=== PATIENT | female | born 1935 | race Caucasian/White ===

== ENCOUNTER → 2020-09-16 14:44 | Outpatient (BNVA) | payer MEDICARE, OTHER, SELFPAY | PROVIDERS: Visit Provider Internal Medicine Cardiovascular Disease | DX: Z76.89 Persons encountering health services in other specified circumstances (principal) ==

== ENCOUNTER → 2020-09-18 10:39 | Outpatient (REF) | payer MEDICARE, OTHER, SELFPAY ==
--- NOTE | 2020-09-18 10:45 | ECG_ITS ---
Hook-up date: 2020-09-16 15:18:00 Duration: 23:29:00 Test Indications: UNSPEC AFIB Medications: [id number] QRS complexes 99 Ventricular ectopics which represent <1 % of total QRS comp. * Supraventricular ectopics which represent % of total QRS comp. * Paced QRS complexs which represent % of total QRS comp. VENTRICULAR ECTOPY 99 Isolated 0 Bigeminal Cycles 0 Couplets 0 Runs 0 Beats in Runs * Beats LONGEST at * BPM at :: -- * Beats FASTEST at * BPM at :: -- SUPRAVENTRICULAR ECTOPY * Isolated * Couplets * Runs * Beats in Runs * Beats LONGEST at * BPM at :: -- * Beats FASTEST at * BPM at :: -- HEART RATES 58 MIN at 05:16:20 2020-09-17 103 AVG 146 MAX at 10:32:44 2020-09-17 LONGEST RR 1.7040 secs at 04:40:34 2020-09-17 S-T LEVELS Channel 1 - 128 mm at 15:18:00 2020-09-16 - 128 mm at 15:18:00 2020-09-16 Channel 2 - 128 mm at 15:18:00 2020-09-16 - 128 mm at 15:18:00 2020-09-16 Channel 3 - 128 mm at 03:43:71 -- - 128 mm at 03:43:71 Basic rhythm Atrial fibrillation Inadequate rate control with average HR of 103 bpm with 63% of time HR > 100 bpm Rare Premature ventricular complexes No diary submitted Referred By: Luis Hunt Overread By: LUIS HUNT MD
== END ==
LOC: HO.CARD 10:39
PROVIDERS: Visit Provider Internal Medicine Cardiovascular Disease
DX: I48.91 Unspecified atrial fibrillation (principal)
CPT/HCPCS: 93226

== ENCOUNTER 2020-11-18 10:12 | Outpatient (REF) | payer MEDICARE, OTHER, SELFPAY ==
[2020-11-18 11:08] LABS: MANUAL DIFF FLAG NO
[2020-11-18 11:31] LABS: Basophils Percent Auto 0.6 % (0-2); Eosinophils Absolute Auto 0.1 X10*3/uL (0.0-0.4); Eosinophils Percent Auto 1.8 % (0-4); Hematocrit 44.2 % (37-47); Hemoglobin 13.6 g/dl (12.0-16.0); Imm Gran Abs Auto 0.03 X10*3/uL (0.00-0.03); Imm Gran Pct Auto 0.5 % (0.0-0.4); Lymphocytes Absolute Auto 1.7 X10*3/uL (1.2-4.9); Lymphocytes Percent Auto 25.5 % (20-40); Mean Corpuscular HGB Conc 30.8 g/dl (31.0-35.0); Mean Corpuscular Hemoglobin 27.2 pg (27.0-33.0); Mean Corpuscular Volume 88.4 fL (80-98); Mean Platelet Volume 10.6 fL (9.4-12.3); Monocytes Absolute Auto 0.5 X10*3/uL (0.1-1.2); Monocytes Percent Auto 6.9 % (2-11); Neutrophils Absolute Auto 4.2 X10*3/uL (2.0-8.3); Neutrophils Percent Auto 64.7 % (45-73); Platelet Count 181 X10*3/uL (160-400); Red Cell Distribution Width 14.1 % (11.0-16.0); White Blood Count 6.5 X10*3/uL (4.8-10.8)
[2020-11-18 12:01] LABS: Anion Gap 12 (12-20); Blood Urea Nitrogen 20 mg/dL (9-16); Calcium 9.2 mg/dL (8.4-10.2); Carbon Dioxide 28 mmol/L (22-29); Chloride 106 mmol/L (96-108); Cholesterol 208 mg/dL; Estimated Glomerular Filt Rate > 60; Glucose Fasting 99 mg/dL (60-99); HDL Cholesterol 49 mg/dL; LDL Cholesterol Calculated 133 mg/dl; Potassium 4.2 mmol/l (3.3-5.1); Sodium 142 mmol/L (135-145); Triglycerides 130 mg/dL
[2020-11-18 12:07] LABS: Free T4 (Free Thyroxine) 1.01 ng/dL (0.71-1.85); Thyroid Stimulating Hormone 0.64 uIU/mL (0.32-4.0); Vitamin D 25-OH Total 6.2 ng/mL (>30)
== END 2020-11-18 10:13 | disposition home or self-care (01) ==
LOC: HO.HMGCLDS 10:12
PROVIDERS: PCP Internal Medicine; Visit Provider Internal Medicine
DX: F41.9 Anxiety disorder, unspecified (principal); E03.9 Hypothyroidism, unspecified; I48.91 Unspecified atrial fibrillation; I10 Essential (primary) hypertension; L60.8 Other nail disorders; Z78.0 Asymptomatic menopausal state; Z79.01 Long term (current) use of anticoagulants
CPT/HCPCS: 36415; 80048; 80061; 82306; 84439; 84443; 85025

== ENCOUNTER 2021-06-04 10:06 | Outpatient (REF) | payer MEDICARE, OTHER, SELFPAY ==
[2021-06-04 11:16] LABS: MANUAL DIFF FLAG NO
[2021-06-04 11:28] LABS: Basophils Percent Auto 0.4 % (0-2); Eosinophils Absolute Auto 0.1 X10*3/uL (0.0-0.4); Eosinophils Percent Auto 1.8 % (0-4); Hematocrit 43.8 % (37-47); Hemoglobin 13.6 g/dl (12.0-16.0); Imm Gran Abs Auto 0.03 X10*3/uL (0.00-0.03); Imm Gran Pct Auto 0.6 % (0.0-0.4); Lymphocytes Absolute Auto 1.4 X10*3/uL (1.2-4.9); Lymphocytes Percent Auto 28.7 % (20-40); Mean Corpuscular HGB Conc 31.1 g/dl (31.0-35.0); Mean Corpuscular Hemoglobin 27.7 pg (27.0-33.0); Mean Corpuscular Volume 89.2 fL (80-98); Mean Platelet Volume 10.8 fL (9.4-12.3); Monocytes Absolute Auto 0.4 X10*3/uL (0.1-1.2); Monocytes Percent Auto 8.6 % (2-11); Neutrophils Percent Auto 59.9 % (45-73); Platelet Count 177 X10*3/uL (160-400); Red Blood Count 4.91 X10*6/uL (4.20-5.50); Red Cell Distribution Width 14.7 % (11.0-16.0)
[2021-06-04 11:49] LABS: Alanine Aminotransferase 7 U/L (0-31); Anion Gap 13 (12-20); Aspartate Amino Transferase 17 U/L (5-31); Blood Urea Nitrogen 13 mg/dL (9-16); Calcium 9.5 mg/dL (8.4-10.2); Carbon Dioxide 25 mmol/L (22-29); Chloride 108 mmol/L (96-108); Cholesterol 165 mg/dL; Estimated Glomerular Filt Rate > 60; Glucose Fasting 107 mg/dL (60-99); HDL Cholesterol 44 mg/dL; LDL Cholesterol Calculated 104 mg/dl; Potassium 4.4 mmol/L (3.3-5.1); Sodium 142 mmol/L (135-145); Triglycerides 88 mg/dL
[2021-06-04 12:11] LABS: Free T4 (Free Thyroxine) 1.03 ng/dL (0.71-1.85); Vitamin D 25-OH Total 16.2 ng/mL (>30)
== END 2021-06-04 10:07 | disposition home or self-care (01) ==
LOC: HO.HMGCLDS 10:06
PROVIDERS: PCP Internal Medicine; Visit Provider Internal Medicine
DX: E03.9 Hypothyroidism, unspecified (principal); F41.9 Anxiety disorder, unspecified; I48.91 Unspecified atrial fibrillation; I10 Essential (primary) hypertension; Z78.0 Asymptomatic menopausal state; Z79.01 Long term (current) use of anticoagulants
CPT/HCPCS: 36415; 80048; 80061; 82306; 84439; 84443; 84450; 84460; 85025

== ENCOUNTER → 2021-07-07 12:16 | Outpatient (BNVA) | payer MEDICARE, OTHER, SELFPAY | PROVIDERS: PCP Internal Medicine; Referring Provider Internal Medicine; Visit Provider Internal Medicine Cardiovascular Disease | DX: I48.91 Unspecified atrial fibrillation (principal); I44.7 Left bundle-branch block, unspecified; I10 Essential (primary) hypertension | CPT/HCPCS: 93005; 99212 ==

== ENCOUNTER 2021-08-04 15:30 | Outpatient (REF) | payer MEDICARE, OTHER, SELFPAY ==
[2021-08-04 17:54] LABS: Hematocrit 43.3 % (37-47); Hemoglobin 13.9 g/dl (12.0-16.0); Mean Corpuscular HGB Conc 32.1 g/dl (31.0-35.0); Mean Corpuscular Hemoglobin 29.3 pg (27.0-33.0); Mean Corpuscular Volume 91.4 fL (80-98); Mean Platelet Volume 10.9 fL (9.4-12.3); Platelet Count 164 X10*3/uL (160-400); Red Blood Count 4.74 X10*6/uL (4.20-5.50); Red Cell Distribution Width 14.9 % (11.0-16.0); White Blood Count 13.2 X10*3/uL (4.8-10.8)
[2021-08-04 18:03] LABS: Alanine Aminotransferase 32 U/L (0-31); Albumin Level 4.2 g/dL (3.5-5.0); Alkaline Phosphatase 93 U/L (39-117); Anion Gap 14 (12-20); Aspartate Amino Transferase 16 U/L (5-31); Bilirubin Direct 0.4 mg/dL (0.0-0.5); Bilirubin Total 1.2 mg/dL (0.0-1.0); Blood Urea Nitrogen 21 mg/dL (9-16); Calcium 9.4 mg/dL (8.4-10.2); Carbon Dioxide 26 mmol/L (22-29); Chloride 106 mmol/L (96-108); Estimated Glomerular Filt Rate > 60; Glucose Random 99 mg/dL (60-115); Sodium 142 mmol/L (135-145); Total Protein 6.5 g/dL (6.5-8.0)
== END 2021-08-04 15:31 | disposition home or self-care (01) ==
LOC: HO.HMGCLDS 15:30
PROVIDERS: PCP Internal Medicine; Visit Provider Internal Medicine
DX: R53.83 Other fatigue (principal)
CPT/HCPCS: 36415; 80048; 80076; 85027

== ENCOUNTER 2021-08-07 10:48 | Inpatient (IN) | payer MEDICARE, OTHER, SELFPAY ==
[2021-08-07] VITALS (12 sets, daily range): BP systolic 108–139; BP diastolic 47–77; PULSE 95–135; RESP 18–28; TEMP 36.9–38.5; O2SAT 88–95; BMI 24.6
--- NOTE | ~2021-08-07 | CT_ITS ---
EXAMINATION: CT ABDOMEN AND PELVIS WITH CONTRAST CLINICAL INFORMATION: Diarrhea, bloody stool COMPARISON: CT abdomen pelvis 03/09/2018 TECHNIQUE: Multidetector volumetric images were obtained from the superior aspect of the liver through the pubic symphysis following administration 85 mL of Omnipaque 350 intravenous contrast. Sagittal and coronal reformatted images were obtained on the technologist's workstation. Oral contrast: No This CT examination was performed using dose optimization techniques as appropriate, variously including the following: *Automated exposure control *Adjustment of mA and/or kV according to patient size (this includes techniques or standardized protocols for targeted exams where dose is matched to indication/reason for exam; i.e. extremities or head) *Use of iterative reconstruction technique DLP: 452 mGy-cm FINDINGS: LUNG BASES: Similar appearance of atelectasis or fibrosis at the lung bases. Mild cardiomegaly. No pericardial effusion. LIVER, GALLBLADDER, AND BILIARY TREE: Unchanged small hepatic hypodensities, similar to 2018 suggesting cysts or another benign etiology; no imaging follow-up recommended. New periportal edema. The hepatic and portal veins enhance normally. Calcified gallstones are present. PANCREAS: Unremarkable. SPLEEN: Unremarkable. ADRENAL GLANDS: Diffuse thickening of the left adrenal gland may reflect adrenal hyperplasia. No adrenal mass. KIDNEYS AND URETERS: Symmetric bilateral renal enhancement. No hydronephrosis or calculi. Unchanged bilateral simple cysts requiring no imaging follow-up. BLADDER: Unremarkable. GASTROINTESTINAL TRACT: Small hiatal hernia. Stomach collapsed. Small bowel nondilated. There is severe wall thickening and stratified mucosal hyperenhancement of the sigmoid colon and rectum. There are areas of high density intraluminal contents within the sigmoid colon and rectum, nonspecific as no precontrast images were obtained to evaluate if this represents contrast extravasation the setting of GI bleeding. There is perirectal fluid and fat stranding with small volume presacral fluid. There is prominence of the vasa recta adjacent the sigmoid colon and upper rectum. Normal wall thickness of the right colon, transverse colon, and left colon. ABDOMINAL WALL: Small fat-containing umbilical hernia. LYMPH NODES: Numerous subcentimeter retroperitoneal lymph nodes. No lymphadenopathy. VASCULAR: Severe circumferential calcified atherosclerotic changes of the normal caliber infrarenal abdominal aorta. PELVIC VISCERA: Diminutive postmenopausal uterus. 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 Normal appearance of both ovaries. OSSEOUS STRUCTURES: There is degenerative disc disease at L5-S1 with vacuum disc phenomenon. Lower lumbar facet arthropathy. Multilevel degenerative changes of the lumbar spine. CT/CT abdomen pelvis w con IMPRESSION: Severe rectosigmoid wall thickening with surrounding fluid and fat stranding consistent with nonspecific acute proctocolitis. The extension to involve the rectum would be unusual for ischemic colitis. An infectious or inflammatory etiology is favored.
--- NOTE | ~2021-08-07 | XR_ITS ---
EXAMINATION: XR CHEST CLINICAL INFORMATION: Shortness of breath COMPARISON: 10/08/2018 TECHNIQUE: Frontal view of the chest was obtained. FINDINGS: There is mild upper zone redistribution. Heart size mildly enlarged. Is retrocardiac opacity with some patchy density seen in obscuration of the left hemidiaphragm. A small left effusion is probably present, although no effusion was seen on the CT scan performed earlier today. No consolidations are seen in the right lung. No right pleural effusion. XR/XR chest 1V IMPRESSION: Question of mild pulmonary vascular congestion. Question of left lower lobe patchy infiltrate.
--- NOTE | 2021-08-07 11:11 | ED_ITS ---
HPI - Abdominal Pain General Chief Complaint: Abdominal Pain Stated Complaint: abd pain Time Seen by Provider: 08/07/21 11:04 Source: patient and EMS Mode of arrival: EMS Limitations: no limitations History of Present Illness MD elicited complaint: abdominal pain Pertinent past history: other (hx of colitis in the past) Onset (ago): day(s) (2) Pain Consistency: constant Location: diffuse Severity: moderate Quality: cramping Radiation: none Migration to: no migration Exacerbating factors: nothing Relieving factors: nothing Context: history of similar episodes Associated symptoms: nausea, diarrhea, fever, chills and hematochezia Related Data Home Medications Medication Instructions Recorded Confirmed cholecalciferol (vitamin D3) 1,250 1,250 mcg PO SA 08/07/21 08/07/21 mcg (50,000 unit) capsule Previous Rx's Medication Instructions Recorded diltiazem HCl 240 mg 240 mg PO BID #180 cap 03/03/21 capsule,extended release 24 hr metoprolol succinate 50 mg 50 mg PO BID #180 tab 03/20/21 tablet,extended release 24 hr sertraline 50 mg tablet 50 mg PO DAILY #90 tab 04/10/21 levothyroxine 25 mcg tablet 25 mcg PO DAILY #90 tab 07/27/21 (Levo-T) zolpidem 10 mg tablet (Ambien) 10 mg PO BEDTIME 10 Days #10 tab 08/05/21 apixaban 5 mg tablet (Eliquis) 5 mg PO BID 90 Days #180 tab 08/07/21 Allergies Allergy/AdvReac Type Severity Reaction Status Date / Time amoxicillin [From AUGMENTIN] Allergy Intermediate RASH Verified 08/07/21 11:06 gabapentin [GABAPENTIN] Allergy Unknown UNKNOWN Verified 08/07/21 11:06 Review of Systems Review of Systems Constitutional : No Weight loss, No Fever, pos Chills ENT/Mouth : No sore throat, No Rhinorrhea Eyes: No Swelling, No Redness Cardiovascular : No Chest Pain, No SOB, NoEdema Respiratory : No Cough, No Sputum, No Wheezing Gastrointestinal : Positive Nausea, no Vomiting, positive Diarrhea, positive abdominal Pain, pos Hematochezia, No Melena Genitourinary : No Dysuria, No Urinary Frequency, No Hematuria, No Urgency Musculoskeletal : No joint pain, No Myalgias, No Joint Swelling Skin : No Skin Lesions, No rash Neuro : pos Weakness, No Numbness, No Dizziness, No Headache Psych : No Anxiety/Panic, No Depression Heme/Lymph: No Bruising, No Lymphadenopathy Endocrine : No Polyuria, No Polydipsia All other systems reviewed and are negative. Physical Exam Vital Signs: Vital Signs: Last Vital Signs Temp 98.4 F 08/07/21 15:22 Pulse 135 H 08/07/21 15:22 Resp 18 08/07/21 15:22 BP 108/67 08/07/21 15:22 Pulse Ox 94 08/07/21 15:22 Body Mass Index 24.6 Appearance: Alert. Oriented X3. in pain mild acute distress. Eyes: Pupils equal, round and reactive to light. ENT: Pharynx normal. Neck: Normal inspection. Neck supple. CVS: tachycardic irregular heart rate and rhythm. Pulses normal. Respiratory: No respiratory distress. Breath sounds normal. Abdomen: Soft and distended with moderate diffuse ttp Rectal: mucousy brown stool Skin: Skin warm and dry. pale skin color. Normal skin turgor. Extremities: No lower extremity edema. No calf ttp Neuro: Oriented X 3. No motor deficit. No sensory deficit. Course Course Course Narrative: HR still elevated with tylenol/fluids, IV dilt ordered did not take her AM meds will admit for colitis, rapid afib HR still tono will start on dilt gtt MDM - Abdominal Pain MDM Narrative Medical decision making narrative: 86 yo female with hx of colitis, HTN, afib on eliquis comes in with fevers, diarrhea, possible colitis vs cdiff will obtain labs, cultures, empiric antbiotics, CT scan, stool studies IVF will need admission. Lab Data Result diagrams: 08/07/21 11:21 08/07/21 11:21 Labs: Lab Results 08/07/21 08/07/21 08/07/21 Range/Units 11:21 11:21 11:21 WBC 17.1 H (4.8-10.8) X10*3/uL RBC 4.21 (4.20-5.50) X10*6/uL Hgb 12.5 (12.0-16.0) g/dl Hct 38.6 (37-47) % MCV 91.7 (80-98) fL MCH 29.7 (27.0-33.0) pg MCHC 32.4 (31.0-35.0) g/dl RDW 15.1 (11.0-16.0) % Plt Count 117 L D (160-400) X10*3/uL MPV 10.2 (9.4-12.3) fL Immature Gran % (Auto) 0.8 H (0.0-0.4) % Neut % (Auto) 89.5 H (45-73) % Lymph % (Auto) 4.0 L (20-40) % [place] % (Auto) 5.5 (2-11) % Eos % (Auto) 0.1 (0-4) % Baso % (Auto) 0.1 (0-2) % Lymph # (Auto) 0.7 L (1.2-4.9) X10*3/uL [place] # (Auto) 0.9 (0.1-1.2) X10*3/uL Eos # (Auto) 0.0 (0.0-0.4) X10*3/uL Baso # (Auto) 0.0 (0.0-0.2) X10*3/uL Abs Immat Gran (auto) 0.14 H (0.00-0.03) X10*3/uL Absolute Neuts (auto) 15.3 H (2.0-8.3) X10*3/uL Absolute Nucleated RBC 0.000 (0.0-0.012) X10*3/uL Nucleated RBC % (auto) 0.0 (0.0-0.2) /100WBC PT 21.2 H (9.9-13.0) SEC INR 1.8 H (0.9-1.1) APTT 35.6 (24.1-38.0) SEC Sodium 139 (135-145) mmol/L Potassium 4.0 (3.3-5.1) mmol/L Chloride 104 (96-108) mmol/L Carbon Dioxide 25 (22-29) mmol/L Anion Gap 14 (12-20) BUN 18 H (9-16) mg/dL Creatinine 0.79 (0.5-1.4) mg/dL Estim Creat Clear Calc 46.0 Estimated GFR > 60 Random Glucose 93 (60-115) mg/dL Lactic Acid (0.5-2.0) mmol/L Calcium 8.8 D (8.4-10.2) mg/dL Magnesium (1.6-2.6) mg/dL Total Bilirubin (0.0-1.0) mg/dL Direct Bilirubin (0.0-0.5) mg/dL AST (5-31) U/L ALT (0-31) U/L Alkaline Phosphatase (39-117) U/L Total Protein (6.5-8.0) g/dL Albumin (3.5-5.0) g/dL Lipase (8-78) U/L Stool Occult Blood (NEGATIVE) C. difficile Tox B Gene (Negative) COVID-19 (JOSE) (Negative) COVID-19 Clin Com Blood Type Antibody Screen 08/07/21 08/07/21 08/07/21 Range/Units 11:21 11:21 11:21 WBC (4.8-10.8) X10*3/uL RBC (4.20-5.50) X10*6/uL Hgb (12.0-16.0) g/dl Hct (37-47) % MCV (80-98) fL MCH (27.0-33.0) pg MCHC (31.0-35.0) g/dl RDW (11.0-16.0) % Plt Count (160-400) X10*3/uL MPV (9.4-12.3) fL Immature Gran % (Auto) (0.0-0.4) % Neut % (Auto) (45-73) % Lymph % (Auto) (20-40) % [place] % (Auto) (2-11) % Eos % (Auto) (0-4) % Baso % (Auto) (0-2) % Lymph # (Auto) (1.2-4.9) X10*3/uL [place] # (Auto) (0.1-1.2) X10*3/uL Eos # (Auto) (0.0-0.4) X10*3/uL Baso # (Auto) (0.0-0.2) X10*3/uL Abs Immat Gran (auto) (0.00-0.03) X10*3/uL Absolute Neuts (auto) (2.0-8.3) X10*3/uL Absolute Nucleated RBC (0.0-0.012) X10*3/uL Nucleated RBC % (auto) (0.0-0.2) /100WBC PT (9.9-13.0) SEC INR (0.9-1.1) APTT (24.1-38.0) SEC Sodium (135-145) mmol/L Potassium (3.3-5.1) mmol/L Chloride (96-108) mmol/L Carbon Dioxide (22-29) mmol/L Anion Gap (12-20) BUN (9-16) mg/dL Creatinine (0.5-1.4) mg/dL Estim Creat Clear Calc Estimated GFR Random Glucose (60-115) mg/dL Lactic Acid 1.0 (0.5-2.0) mmol/L Calcium (8.4-10.2) mg/dL Magnesium 1.9 (1.6-2.6) mg/dL Total Bilirubin 2.7 H (0.0-1.0) mg/dL Direct Bilirubin 1.1 H (0.0-0.5) mg/dL AST 14 (5-31) U/L ALT 19 (0-31) U/L Alkaline Phosphatase 93 (39-117) U/L Total Protein 5.9 L (6.5-8.0) g/dL Albumin 3.9 (3.5-5.0) g/dL Lipase 9 (8-78) U/L Stool Occult Blood (NEGATIVE) C. difficile Tox B Gene (Negative) COVID-19 (JOSE) (Negative) COVID-19 Clin Com Blood Type B Positive Antibody Screen NEGATIVE 08/07/21 08/07/21 08/07/21 Range/Units 11:30 11:53 11:57 WBC (4.8-10.8) X10*3/uL RBC (4.20-5.50) X10*6/uL Hgb (12.0-16.0) g/dl Hct (37-47) % MCV (80-98) fL MCH (27.0-33.0) pg MCHC (31.0-35.0) g/dl RDW (11.0-16.0) % Plt Count (160-400) X10*3/uL MPV (9.4-12.3) fL Immature Gran % (Auto) (0.0-0.4) % Neut % (Auto) (45-73) % Lymph % (Auto) (20-40) % [place] % (Auto) (2-11) % Eos % (Auto) (0-4) % Baso % (Auto) (0-2) % Lymph # (Auto) (1.2-4.9) X10*3/uL [place] # (Auto) (0.1-1.2) X10*3/uL Eos # (Auto) (0.0-0.4) X10*3/uL Baso # (Auto) (0.0-0.2) X10*3/uL Abs Immat Gran (auto) (0.00-0.03) X10*3/uL Absolute Neuts (auto) (2.0-8.3) X10*3/uL Absolute Nucleated RBC (0.0-0.012) X10*3/uL Nucleated RBC % (auto) (0.0-0.2) /100WBC PT (9.9-13.0) SEC INR (0.9-1.1) APTT (24.1-38.0) SEC Sodium (135-145) mmol/L Potassium (3.3-5.1) mmol/L Chloride (96-108) mmol/L Carbon Dioxide (22-29) mmol/L Anion Gap (12-20) BUN (9-16) mg/dL Creatinine (0.5-1.4) mg/dL Estim Creat Clear Calc Estimated GFR Random Glucose (60-115) mg/dL Lactic Acid (0.5-2.0) mmol/L Calcium (8.4-10.2) mg/dL Magnesium (1.6-2.6) mg/dL Total Bilirubin (0.0-1.0) mg/dL Direct Bilirubin (0.0-0.5) mg/dL AST (5-31) U/L ALT (0-31) U/L Alkaline Phosphatase (39-117) U/L Total Protein (6.5-8.0) g/dL Albumin (3.5-5.0) g/dL Lipase (8-78) U/L Stool Occult Blood NEGATIVE (NEGATIVE) C. difficile Tox B Gene NEGATIVE (Negative) COVID-19 (JOSE) Negative (Negative) COVID-19 Clin Com See Note Blood Type Antibody Screen ECG Data Attestation: I personally reviewed and interpreted this ECG as follows: ECG interpretation date: 08/07/21 ECG interpretation time: 13:16 Interpretation: Rate: 120 Rhythm: afib with RVR [place]: left widened QRS complex. ST T wave : nonspecific, no BOZENA qTC: normal prior studies: no acute ischemia afib with RVR The study has been interpreted contemporaneously by me. Critical Care Time Critical Care Time Critical Care Time: Yes Total Critical Care Time: 35 Attestation: IV dilt, IVF, IV morphine for pain I attest to this time spent taking care of the patient Discharge Plan Discharge Clinical Impression: Colitis Atrial fibrillation Qualifiers: Atrial fibrillation type: longstanding persistent Qualified Code(s): I48.11 - Longstanding persistent atrial fibrillation Leukocytosis Qualifiers: Leukocytosis type: unspecified Qualified Code(s): D72.829 - Elevated white b lood cell count, unspecified Diarrhea Qualifiers: Diarrhea type: unspecified type Qualified Code(s): R19.7 - Diarrhea, unspecified Fever Qualifiers: Fever type: unspecified Qualified Code(s): R50.9 - Fever, unspecified Patient Disposition: Admitted As Inpatient [facility] Past Medical History Attestation statement: The following information was validated with the patient. Medical History Acquired deformity of toenail Acquired hypothyroidism Anxiety disorder Atrial fibrillation Chronic anticoagulation Degenerative disc disease, lumbar HTN (hypertension) Insomnia Left bundle branch block Legionnaires' disease Menopause Skin lesion of neck Surgical History Previous back surgery Family History Family History Brother Leukemia Social History Social History Housing: Assisted Living Facility Alcohol intake: current Alcohol intake frequency: a few times a week Patient Tobacco Use Status: Former Tobacco user Tobacco use type: Cigarette Cigarettes Per Day: 10 e-Cigarette/Vaping Use: Never Used Second Hand Smoke Exposure: No Advance Directives: No service: No Current occupational status: retired
[2021-08-07] MEDS: 0.9 % Sodium Chloride 1,000 ML 999 ML IVCONT ×2 (11:25→12:31)
[2021-08-07 11:28] LABS: MANUAL DIFF FLAG NO
[2021-08-07 11:33] LABS: Basophils Percent Auto 0.1 % (0-2); Eosinophils Percent Auto 0.1 % (0-4); Hematocrit 38.6 % (37-47); Hemoglobin 12.5 g/dl (12.0-16.0); Imm Gran Abs Auto 0.14 X10*3/uL (0.00-0.03); Imm Gran Pct Auto 0.8 % (0.0-0.4); Lymphocytes Absolute Auto 0.7 X10*3/uL (1.2-4.9); Mean Corpuscular HGB Conc 32.4 g/dl (31.0-35.0); Mean Corpuscular Hemoglobin 29.7 pg (27.0-33.0); Mean Corpuscular Volume 91.7 fL (80-98); Mean Platelet Volume 10.2 fL (9.4-12.3); Monocytes Absolute Auto 0.9 X10*3/uL (0.1-1.2); Monocytes Percent Auto 5.5 % (2-11); Neutrophils Absolute Auto 15.3 X10*3/uL (2.0-8.3); Neutrophils Percent Auto 89.5 % (45-73); Platelet Count 117 X10*3/uL (160-400); Red Blood Count 4.21 X10*6/uL (4.20-5.50); Red Cell Distribution Width 15.1 % (11.0-16.0); White Blood Count 17.1 X10*3/uL (4.8-10.8)
[2021-08-07] MEDS: ondansetron HCL 4 MG/2 ML VIAL IVPUSH (11:37)
[2021-08-07] MEDS: levoFLOXacin/D5W 500 MG/100 ML PIGGYBACK 100 MG IV (11:38)
[2021-08-07] MEDS: Morphine Sulfate 4 MG/ML CARTRIDGE IVPUSH (11:38)
[2021-08-07] MEDS: Acetaminophen 325 MG TABLET 650 MG PO (11:38)
[2021-08-07 11:41] LABS: INTERNATIONAL NORM RATIO 1.8 (0.9-1.1); Prothrombin Time 21.2 SEC (9.9-13.0)
[2021-08-07 11:44] LABS: Partial Thromboplastin Time 35.6 SEC (24.1-38.0)
--- NOTE | 2021-08-07 11:47 | PHA.MEDREC ---
Pharmacy Consult ? Medication Reconciliation Pharmacy has completed the medication reconciliation. There are no remarkable issue for provider's attention. Faustina Khan, TracyD
[2021-08-07 11:48] LABS: Anion Gap 14 (12-20); Blood Urea Nitrogen 18 mg/dL (9-16); Calcium 8.8 mg/dL (8.4-10.2); Carbon Dioxide 25 mmol/L (22-29); Chloride 104 mmol/L (96-108); Estimated Glomerular Filt Rate > 60; Glucose Random 93 mg/dL (60-115); Sodium 139 mmol/L (135-145)
[2021-08-07 11:51] LABS: Alanine Aminotransferase 19 U/L (0-31); Albumin Level 3.9 g/dL (3.5-5.0); Alkaline Phosphatase 93 U/L (39-117); Aspartate Amino Transferase 14 U/L (5-31); Bilirubin Direct 1.1 mg/dL (0.0-0.5); Bilirubin Total 2.7 mg/dL (0.0-1.0); Lipase 9 U/L (8-78); Magnesium 1.9 mg/dL (1.6-2.6); Total Protein 5.9 g/dL (6.5-8.0)
[2021-08-07 12:18] LABS: COVID-19 Test Negative (Negative)
[2021-08-07] MEDS: iohexoL 350 MG/ML 100 ML INFUS..BTL 85 ML IV (12:40)
[2021-08-07] MEDS: iohexoL 350 MG/ML 100 ML INFUS..BTL IV (13:01)
[2021-08-07] MEDS: metroNIDAZOLE/NS 500 MG/100 ML PIGGYBACK 100 MG IV ×2 (13:03→21:17)
--- NOTE | 2021-08-07 13:08 | ECG_ITS ---
Test Reason : TACHYCARDIA Blood Pressure : / mmHG Vent. Rate : 120 BPM Atrial Rate : 133 BPM P-R Int : 000 ms QRS Dur : 106 ms QT Int : 330 ms P-R-T Axes : 000 -59 140 degrees QTc Int : 466 ms Atrial fibrillation with rapid ventricular response Left axis deviation ST & T wave abnormality, consider lateral ischemia Abnormal ECG When compared with ECG of 08-OCT-2018 12:49, Atrial fibrillation has replaced Sinus rhythm Vent. rate has increased BY 60 BPM Inverted T waves have replaced nonspecific T wave abnormality in Lateral leads Referred By: Ela Aquino Electronically Signed By:ANN-MARIE ALANIZ
[2021-08-07] MEDS: dilTIAZem HCL 50 MG/10 ML VIAL IVPUSH (13:13)
[2021-08-07 13:52] LABS: OBS Int Ctl Valid YES; OBS1 NEGATIVE (NEGATIVE)
[2021-08-07 14:00] LABS: CDiff Gene PCR NEGATIVE (Negative)
[2021-08-07] MEDS: dilTIAZem HCL 125 MG in 0.9 % Sodium Chloride 100 ML 10 MG IVCONT ×2 (14:13→23:04)
--- NOTE | 2021-08-07 15:22 | PM.IMHP ---
History of Present Illness Date of Service: 08/07/21 Chief Complaint: Abdominal pain, bloody diarrhea, AFib 86-year-old female with past medical history of chronic AFib, hypertension, anxiety, hypothyroidism, lumbar radiculopathy: Patient came to the hospital because chief complaint of abdominal pain, bloody diarrhea-patient says that she was on steroids for because of her lumbar radiculopathy couple of weeks ago and since then she started having diarrhea and subsequently steroid was stopped and subsequently patient had started abdominal pain3-4 days, in addition patient also found to be having AFib with RVR. She was also saying she feels generalized weak. Could not eat well from last 3-4 days. Abdominal pain-sharp, on and off, specially in the left lower abdominal area, does not radiate, food also aggravate the pain. She denies currently any nausea or vomiting Denies any new complaint of chest pain or shortness of breath or fever or chills or nausea or vomiting Denies any cough Denies any weakness or numbness. Lab imaging and EKG reviewed and interpreted by myself: Patient has leukocytosis, tachycardia, lactic acid normal. EKG shows AFib with RVR CT abdominal reviewed personallyshowed evidence of colitis In the ED patient received antibiotic including IV levofloxacin and metronidazole and started on Cardizem drip due to AFib with RVR. And subsequently admission was called for above. Review of Systems Review of Systems: All systems reviewed negative except what is in HPI Yes all other systems are reviewed and are negative [facility] Medical History Acquired deformity of toenail Acquired hypothyroidism Anxiety disorder Atrial fibrillation Chronic anticoagulation Degenerative disc disease, lumbar HTN (hypertension) Insomnia Left bundle branch block Legionnaires' disease Menopause Skin lesion of neck Family History Brother Leukemia Surgical History Previous back surgery Social History Housing: Assisted Living Facility Alcohol intake: current Alcohol intake frequency: a few times a week Patient Tobacco Use Status: Former Tobacco user Tobacco use type: Cigarette Cigarettes Per Day: 10 e-Cigarette/Vaping Use: Never Used Second Hand Smoke Exposure: No Advance Directives: No service: No Current occupational status: retired Meds Allergies Allergy/AdvReac Type Severity Reaction Status Date / Time amoxicillin [From AUGMENTIN] Allergy Intermediate RASH Verified 08/07/21 11:06 gabapentin [GABAPENTIN] Allergy Unknown UNKNOWN Verified 08/07/21 11:06 Active Medications: Current Medications Generic Name Dose Route Start Last Admin Trade Name Freq PRN Reason Stop Dose Admin Apixaban 5 mg 08/07/21 21:00 Apixaban 5 Mg Tablet PO BID [facility] Diltiazem HCl 125 mg/ Sodium 125 mls @ 0 mls/hr 08/07/21 14:00 08/07/21 14:13 Chloride IVCONT 10 mg/hr .Q0M SHARLENE 10 mls/hr Administration Protocol Per Protocol Levofloxacin 500 mg in 100 mls @ 100 mls/hr 08/08/21 11:00 Levaquin IV Q24H SHARLENE Metronidazole 500 mg in 100 mls @ 100 mls/hr 08/07/21 21:00 Flagyl IV Q8H [facility] Lactated Ringer's 500 mls @ 80 mls/hr 08/07/21 15:15 Lr IV 08/07/21 21:29 .Q6H15M [facility] Levothyroxine Sodium 25 mcg 08/08/21 09:00 Levothyroxine Sodium 25 Mcg Tablet PO DAILY [facility] Metoprolol Succinate 50 mg 08/07/21 21:00 Metoprolol Succinate Er 50 Mg Tab.Er.24h PO BID [facility] Protocol Non-Formulary Medication 1,250 mcg 08/08/21 15:09 Cholecalciferol (Vitamin D3) PO [facility] Pharmacy Consult 1 each 08/07/21 11:04 Consult Rx Perform Med Rec MISCELLANE ONCE PRN Consult order Sertraline HCl 50 mg 08/08/21 09:00 Sertraline Hcl 50 Mg Tablet PO DAILY [facility] Sodium Chloride 3 ml 08/07/21 16:00 0.9 % Sodium Chloride Flush 3 Ml Syringe IVFLUSH QSHIFT [facility] Zolpidem Tartrate 10 mg 08/07/21 21:00 Zolpidem Tartrate 5 Mg Tablet PO BEDTIME [facility] Home Medications Medication Instructions Recorded Confirmed Last Taken Type cholecalciferol (vitamin D3) 1,250 1,250 mcg PO SA 08/07/21 08/07/21 08/06/21 History mcg (50,000 unit) capsule Physical Exam Vital Signs and Narrative: Vital Signs: Last Vital Signs Temp 99 F 08/07/21 12:46 Pulse 125 H 08/07/21 14:13 Resp 22 H 08/07/21 12:46 BP 124/68 08/07/21 14:13 Pulse Ox 95 08/07/21 12:46 Body Mass Index 24.6 Physical exam: Constitutional: Not in acute distress, has some pain in the left lower belly. HEENT: Eyes: Anicteric , no discharge. Cvs: Irregular rhythm, [id number] . res: clear to auscultation ,no rhonchii or wheezing abd: no rebound or guarding ,nt, bs present. ext pulses present , no cyanosis neuro: axo3 , nonfocal. skin: no erythema or discharge Results Labs CBC and Chem 7: 08/07/21 11:21 08/07/21 11:21 Labs: Laboratory Results - last 24 hr 08/07/21 08/07/21 08/07/21 11:21 11:21 11:21 MCV 91.7 MCH 29.7 MCHC 32.4 RDW 15.1 Plt Count 117 L D MPV 10.2 Immature Gran % (Auto) 0.8 H Neut % (Auto) 89.5 H Lymph % (Auto) 4.0 L [place] % (Auto) 5.5 Eos % (Auto) 0.1 Baso % (Auto) 0.1 Lymph # (Auto) 0.7 L [place] # (Auto) 0.9 Eos # (Auto) 0.0 Baso # (Auto) 0.0 Abs Immat Gran (auto) 0.14 H Absolute Neuts (auto) 15.3 H Absolute Nucleated RBC 0.000 Nucleated RBC % (auto) 0.0 PT 21.2 H INR 1.8 H APTT 35.6 Anion Gap 14 Estim Creat Clear Calc 46.0 Estimated GFR > 60 Random Glucose 93 Lactic Acid Calcium 8.8 D Magnesium Total Bilirubin Direct Bilirubin AST ALT Alkaline Phosphatase Total Protein Albumin Lipase Stool Occult Blood C. difficile Tox B Gene COVID-19 (JOSE) COVID-19 Clin Com Blood Type Antibody Screen 08/07/21 08/07/21 08/07/21 11:21 11:21 11:21 MCV MCH MCHC RDW Plt Count MPV Immature Gran % (Auto) Neut % (Auto) Lymph % (Auto) [place] % (Auto) Eos % (Auto) Baso % (Auto) Lymph # (Auto) [place] # (Auto) Eos # (Auto) Baso # (Auto) Abs Immat Gran (auto) Absolute Neuts (auto) Absolute Nucleated RBC Nucleated RBC % (auto) PT INR APTT Anion Gap Estim Creat Clear Calc Estimated GFR Random Glucose Lactic Acid 1.0 Calcium Magnesium 1.9 Total Bilirubin 2.7 H Direct Bilirubin 1.1 H AST 14 ALT 19 Alkaline Phosphatase 93 Total Protein 5.9 L Albumin 3.9 Lipase 9 Stool Occult Blood C. difficile Tox B Gene COVID-19 (JOSE) COVID-19 Clin Com Blood Type B Positive Antibody Screen NEGATIVE 08/07/21 08/07/21 08/07/21 11:30 11:53 11:57 MCV MCH MCHC RDW Plt Count MPV Immature Gran % (Auto) Neut % (Auto) Lymph % (Auto) [place] % (Auto) Eos % (Auto) Baso % (Auto) Lymph # (Auto) [place] # (Auto) Eos # (Auto) Baso # (Auto) Abs Immat Gran (auto) Absolute Neuts (auto) Absolute Nucleated RBC Nucleated RBC % (auto) PT INR APTT Anion Gap Estim Creat Clear Calc Estimated GFR Random Glucose Lactic Acid Calcium Magnesium Total Bilirubin Direct Bilirubin AST ALT Alkaline Phosphatase Total Protein Albumin Lipase Stool Occult Blood NEGATIVE C. difficile Tox B Gene NEGATIVE COVID-19 (JOSE) Negative COVID-19 Clin Com See Note Blood Type Antibody Screen Imaging Radiologist's Impressions: Impressions Abdomen/Pelvis CT 08/07/21 11:04 IMPRESSION: Severe rectosigmoid wall thickening with surrounding fluid and fat stranding consistent with nonspecific acute proctocolitis. The extension to involve the rectum would be unusual for ischemic colitis. An infectious or inflammatory etiology is favored. Assessment and Plan (1) Leukocytosis: Qualifiers: Leukocytosis type: unspecified Qualified Code(s): D72.829 - Elevated white blood cell count, unspecified Status: Acute (2) Colitis: Status: Acute (3) Lumbar radiculopathy: Status: Acute (4) Atrial fibrillation with RVR: Status: Acute 1. Sepsis/colitis: Lactic acid normal blood cultures sent. Sepsis physical exam completed. Monitor H&H sees has bloody diarrhea due to probably colitis Continue IV fluid, clear liquid diet, Levaquin, Flagyl, morphine for pain. stool studies 2. AFib with RVR: Continue Cardizem drip Cardio evaluation continue Eliquis now due to bloody diarrhea for now,stool for occult blood -negative will check h/h in evening 3. Hypothyroidism: Continue some thyroid supplement. 4. Lumbar radiculopathy: at least 3-4 week durtion, Patient could could not tolerate steroids-mri done outpatient, pending As per PCP is note son is considering epidural, if needed we will consider radiology evaluation DVT prophylaxis: Mechanical devices. Above management discussed with the in detail with the patient, total time spent with Assessment and coordination plan including patient discussion as well as interpreting daughter as well as ED physician discussion 70 minutes. In addition goal of care also discussed patient is DNR DNI Quality Stroke Does the patient have a stroke diagnosis?: No VTE Prior VTE?: No VTE Risk Level:: Medical - moderate - high VTE Device Contraindication: N/A - Device Ordered VTE Drug Contraindication: Treatment Not Indicated
[2021-08-07] MEDS: 0.9 % Sodium Chloride Flush 3 ML SYRINGE IVFLUSH (17:39)
[2021-08-07] MEDS: Lactated Ringers 500 ML 80 ML IV (17:39)
[2021-08-07 21:06] LABS: Hematocrit 32.7 % (37-47); Hemoglobin 10.7 g/dl (12.0-16.0)
[2021-08-07] MEDS: Metoprolol Succinate ER 50 MG TAB.ER.24H PO (21:17)
[2021-08-07] MEDS: Zolpidem Tartrate 5 MG TABLET 10 MG PO (21:17)
--- NOTE | 2021-08-07 22:55 | PC.NURSE ---
This RN to bedside, first encounter with patient. This RN notes flagyl infusion to be complete. Pt asleep. This RN places pulse ox on pt notes pt to be satting at 86% on RA, placed on 2L NC and sat 92%, increased to 3L NC and now sat 94%. Pt VS assessed, this RN notes pt BP soft at 111/47. HR 93-110 afib with cardizem drip running at 15mg/hr. Dr Salazar made aware of pt's VS, plan for CXR and possible fluid bolus. Awaiting orders at this time
--- NOTE | 2021-08-07 23:08 | PC.NURSE ---
This RN noting that cardizem drip was infusing at 15mg/hr despite MAR reflecting 10mg/hr. Due to soft BP without additional fluid orders at this time, this RN titrated to 10mg/hr to assess effectiveness at lower dose.
[2021-08-08] VITALS (9 sets, daily range): BP systolic 117–149; BP diastolic 62–91; PULSE 102–122; RESP 16–19; TEMP 36–37.1; O2SAT 90–98
[2021-08-08 01:01] LABS: B Type Natriuretic Peptide 258 pg/mL (<100)
[2021-08-08 04:50] LABS: Hemoglobin 10.9 g/dl (12.0-16.0); PLT CLUMP 1
[2021-08-08 04:52] LABS: Hematocrit 33.5 % (37-47); Mean Corpuscular HGB Conc 32.5 g/dl (31.0-35.0); Mean Corpuscular Hemoglobin 29.9 pg (27.0-33.0); Mean Corpuscular Volume 91.8 fL (80-98); Mean Platelet Volume 9.9 fL (9.4-12.3); Red Blood Count 3.65 X10*6/uL (4.20-5.50); Red Cell Distribution Width 14.9 % (11.0-16.0); White Blood Count 12.3 X10*3/uL (4.8-10.8)
[2021-08-08 05:04] LABS: Platelet Count 96 X10*3/uL (160-400)
[2021-08-08 05:05] LABS: Anion Gap 13 (12-20); Blood Urea Nitrogen 15 mg/dL (9-16); Calcium 8.4 mg/dL (8.4-10.2); Carbon Dioxide 20 mmol/L (22-29); Chloride 108 mmol/L (96-108); Creatinine Clr Calc Pharmacy 60.5; Estimated Glomerular Filt Rate > 60; Glucose Random 96 mg/dL (60-115); Potassium 3.8 mmol/L (3.3-5.1); Sodium 137 mmol/L (135-145)
[2021-08-08 05:08] LABS: Troponin-I High Sensitivity 16.2 ng/L (<3.5-17.0)
[2021-08-08] MEDS: metroNIDAZOLE/NS 500 MG/100 ML PIGGYBACK 100 MG IV ×3 (05:23→21:05)
[2021-08-08] MEDS: Morphine Sulfate 2 MG/ML CARTRIDGE 1 MG IVPUSH (05:33)
--- NOTE | 2021-08-08 07:38 | PC.NURSE ---
patient hr increasing 120-130's. cardizem drip increased to 15 mg/hour. bp stable. patient resting on stretcher. denies complaints. stool sample collected and sent to lab. patient continues to wait for room for admission.
[2021-08-08] MEDS: 0.9 % Sodium Chloride Flush 3 ML SYRINGE IVFLUSH ×2 (07:42→16:02)
--- NOTE | 2021-08-08 09:43 | PM.NEUROCN ---
History of Present Illness Data of Consult Service Date: 08/08/21 Primary Care Provider: Pushpa Cuevas MD HPI Reason for consult: Lumbar radiculopathy 86 years old woman who apparently was suffering from low back pain and was treated with prednisone resulting in multiple side effects. She in fact came to hospital with complaints of abdominal pain and associated symptoms. When I ask her if there was any other pain she was not sure and hesitated. When asked specifically, she said that there was some back pain. She was not in any distress at this time. Review of Systems Review of Systems: Abdominal pain and diarrhea. There was no recent cold or flu-like illness fall or trauma. [facility] Past Medical History Medical History Acquired deformity of toenail Acquired hypothyroidism Anxiety disorder Atrial fibrillation Chronic anticoagulation Degenerative disc disease, lumbar HTN (hypertension) Insomnia Left bundle branch block Legionnaires' disease Menopause Skin lesion of neck Family History Family History Brother Leukemia Surgical History Surgical History Previous back surgery Social History Social History Housing: Assisted Living Facility Alcohol intake: current Alcohol intake frequency: a few times a week Patient Tobacco Use Status: Former Tobacco user Tobacco use type: Cigarette Cigarettes Per Day: 10 e-Cigarette/Vaping Use: Never Used Second Hand Smoke Exposure: No Advance Directives: No service: No Current occupational status: retired Meds Allergies Allergy/AdvReac Type Severity Reaction Status Date / Time amoxicillin [From AUGMENTIN] Allergy Intermediate RASH Verified 08/07/21 11:06 gabapentin [GABAPENTIN] Allergy Unknown UNKNOWN Verified 08/07/21 11:06 Active Medications: Current Medications Generic Name Dose Route Start Last Admin Trade Name Freq PRN Reason Stop Dose Admin Apixaban 5 mg 08/08/21 09:00 Apixaban 5 Mg Tablet PO BID SHARLENE Diltiazem HCl 125 mg/ Sodium 125 mls @ 0 mls/hr 08/07/21 14:00 08/08/21 07:38 Chloride IVCONT 15 mg/hr .Q0M SHARLENE 15 mls/hr Titration Protocol Per Protocol Levofloxacin 500 mg in 100 mls @ 100 mls/hr 08/08/21 11:00 Levaquin IV Q24H SHARLENE Metronidazole 500 mg in 100 mls @ 100 mls/hr 08/07/21 21:00 08/08/21 06:25 Flagyl IV Infused Q8H [facility] Infusion Levothyroxine Sodium 25 mcg 08/08/21 09:00 Levothyroxine Sodium 25 Mcg Tablet PO DAILY [facility] Metoprolol Succinate 50 mg 08/07/21 21:00 08/07/21 21:17 Metoprolol Succinate Er 50 Mg Tab.Er.24h PO 50 mg BID [facility] Administration Protocol Morphine Sulfate 1 mg 08/07/21 16:40 08/08/21 05:33 Morphine Sulfate 2 Mg/Ml Cartridge IVPUSH 1 mg Q3H PRN Administration Pain, Mild (Pain Scale 1-3) Protocol Non-Formulary Medication 1,250 mcg 08/08/21 15:09 Cholecalciferol (Vitamin D3) PO [facility] Pharmacy Consult 1 each 08/07/21 11:04 Consult Rx Perform Med Rec MISCELLANE ONCE PRN Consult order Sertraline HCl 50 mg 08/08/21 09:00 Sertraline Hcl 50 Mg Tablet PO DAILY [facility] Sodium Chloride 3 ml 08/07/21 16:00 08/08/21 07:42 0.9 % Sodium Chloride Flush 3 Ml Syringe IVFLUSH 3 ml QSHIFT [facility] Administration Zolpidem Tartrate 10 mg 08/07/21 21:00 08/07/21 21:17 Zolpidem Tartrate 5 Mg Tablet PO 10 mg BEDTIME [facility] Administration Home Medications Medication Instructions Recorded Confirmed Last Taken Type cholecalciferol (vitamin D3) 1,250 1,250 mcg PO SA 08/07/21 08/07/21 08/06/21 History mcg (50,000 unit) capsule Physical Exam Vital Signs: Vital Signs: Last Vital Signs Temp 98.6 F 08/08/21 07:36 Pulse 122 H 08/08/21 07:36 Resp 18 08/08/21 07:36 BP 128/74 08/08/21 07:36 Pulse Ox 96 08/08/21 07:36 Body Mass Index 24.6 Neuro: Other: She was alert and awake with normal spontaneity of speech fluency comprehension and wake affect. Face was symmetrical. Extraocular muscles were intact. There was no obvious focal arm weakness. She was able to lift each leg individually against gravity. Knee and ankle reflexes are absent with flexor plantars. Strength examination was difficult to interpret because of giveaway type of weakness. Results Labs CBC & Chem 7: 08/08/21 04:39 08/08/21 04:39 Labs: Short CBC 08/07/21 08/07/21 08/08/21 Range/Units 11:21 20:56 04:39 WBC 17.1 H 12.3 H (4.8-10.8) X10*3/uL Hgb 12.5 10.7 L 10.9 L (12.0-16.0) g/dl Hct 38.6 32.7 L 33.5 L (37-47) % Plt Count 117 L D 96 L (160-400) X10*3/uL BMP 08/07/21 08/08/21 11:21 04:39 Sodium 139 137 Potassium 4.0 3.8 Chloride 104 108 Carbon Dioxide 25 20 L BUN 18 H 15 Creatinine 0.79 0.60 Calcium 8.8 D 8.4 Liver Function 08/07/21 Range/Units 11:21 Total Bilirubin 2.7 H (0.0-1.0) mg/dL Direct Bilirubin 1.1 H (0.0-0.5) mg/dL AST 14 (5-31) U/L ALT 19 (0-31) U/L Alkaline Phosphatase 93 (39-117) U/L Albumin 3.9 (3.5-5.0) g/dL Her recent MRI of lumbosacral spine revealed L4-5 and L5-S1 broad-based disc bulge narrowing exiting foramina especially or right-sided L4-5. Microbiology Microbiology Results: Microbiology 08/07/21 11:52 Stool Stool Culture - Preliminary Normal so far. Assessment and Plan (1) Lumbar radiculopathy: Status: Acute 86 years old woman with recent bout of back pain treated with prednisone. Her main complaint at this time was regarding her belly and she did not volunteer or agreed with significant back or leg pain. It was possible that the acute attack of back pain was mostly resolved. Her examination was difficult to interpret and there was no asymmetric or focal finding. MRI of lumbosacral spine revealed multilevel spondylitic disease with possible right L4-5 root compression, which could result in radicular type of pain. But overall picture was not severe enough to warrant any surgery or intervention. At this time my recommendation is conservative management with p.r.n. Tylenol 500 mg 3 times a day and PT OT consultation and advised to be staying active. Procedures Date of Service Date of Service: 08/08/21
[2021-08-08] MEDS: levoFLOXacin/D5W 500 MG/100 ML PIGGYBACK 100 MG IV (10:19)
[2021-08-08] MEDS: dilTIAZem HCL 125 MG in 0.9 % Sodium Chloride 100 ML 15 MG IVCONT (10:21)
[2021-08-08] MEDS: Sertraline HCL 50 MG TABLET PO (10:21)
[2021-08-08] MEDS: Levothyroxine Sodium 25 MCG TABLET PO (10:21)
--- NOTE | 2021-08-08 11:46 | P.CONCA_ITS ---
History of Present Illness History of Present Illness Date of Service: 08/08/21 Chief complaint: abd pain Narrative: This is a cardiology consultation regarding atrial fibrillation with rapid ventricular rate. She is presently the hospital mainly for abdominal pain, diarrhea. In this context, she has been noted to have atrial fibrillation with rapid rate. She does not have any cardiac symptoms including chest pain or shortness of breath or palpitations or infected Vega from Cardiac all. However because of atrial fibrillation rapid rate BP nausea. She is currently on a Cardizem drip. Based on the last office note by Dr. Hunt, she has been treated by rate control. She was on diltiazem and metoprolol as well as Eliquis. Review of Systems Review of Systems: Yes all other systems are reviewed and are negative Cardiovascular: Cardiovascular: Reports as per HPI, Reports no additional cardiovascular complaints, Denies acrocyanosis, Denies cool extremities, Denies painful fingertips, Denies chest pain, Denies chest pain at rest, Denies diap horesis, Denies syncope, Denies irregular heart rhythm, Denies claudication, Denies leg edema, Denies lightheadedness, Denies palpitations and Denies dyspnea Respiratory: Respiratory: Denies dyspnea Gastrointestinal: Comments: abdominal pain, diarrhea Neurologic: Denies syncope Endocrine: Endocrine: Denies palpitations [facility] Past Medical History Medical History Acquired deformity of toenail Acquired hypothyroidism Anxiety disorder Atrial fibrillation Chronic anticoagulation Degenerative disc disease, lumbar HTN (hypertension) Insomnia Left bundle branch block Legionnaires' disease Menopause Skin lesion of neck Family History Family History Brother Leukemia Surgical History Surgical History Previous back surgery Social History Social History Housing: Assisted Living Facility Alcohol intake: current Alcohol intake frequency: a few times a week Patient Tobacco Use Status: Former Tobacco user Tobacco use type: Cigarette Cigarettes Per Day: 10 e-Cigarette/Vaping Use: Never Used Second Hand Smoke Exposure: No Advance Directives: No service: No Current occupational status: retired Meds Allergies Allergy/AdvReac Type Severity Reaction Status Date / Time amoxicillin [From AUGMENTIN] Allergy Intermediate RASH Verified 08/07/21 11:06 gabapentin [GABAPENTIN] Allergy Unknown UNKNOWN Verified 08/07/21 11:06 Active Medications: Current Medications Generic Name Dose Route Start Last Admin Trade Name Freq PRN Reason Stop Dose Admin Apixaban 5 mg 08/08/21 21:00 Apixaban 5 Mg Tablet PO BID SHARLENE Diltiazem HCl 125 mg/ Sodium 125 mls @ 0 mls/hr 08/07/21 14:00 08/08/21 10:21 Chloride IVCONT 15 mg/hr .Q0M SHARLENE 15 mls/hr Administration Protocol Per Protocol Levofloxacin 500 mg in 100 mls @ 100 mls/hr 08/08/21 11:00 08/08/21 11:19 Levaquin IV Infused Q24H SH[facility] Infusion Metronidazole 500 mg in 100 mls @ 100 mls/hr 08/07/21 21:00 08/08/21 06:25 Flagyl IV Infused Q8H SH[facility]E Infusion Levothyroxine Sodium 25 mcg 08/08/21 09:00 08/08/21 10:21 Levothyroxine Sodium 25 Mcg Tablet PO 25 mcg DAILY [facility] Administration Metoprolol Succinate 50 mg 08/07/21 21:00 08/08/21 10:21 Metoprolol Succinate Er 50 Mg Tab.Er.24h PO Not Given BID [facility] Protocol Morphine Sulfate 1 mg 08/07/21 16:40 08/08/21 05:33 Morphine Sulfate 2 Mg/Ml Cartridge IVPUSH 1 mg Q3H PRN Administration Pain, Mild (Pain Scale 1-3) Protocol Non-Formulary Medication 1,250 mcg 08/08/21 15:09 Cholecalciferol (Vitamin D3) PO [facility] Pharmacy Consult 1 each 08/07/21 11:04 Consult Rx Perform Med Rec MISCELLANE ONCE PRN Consult order Sertraline HCl 50 mg 08/08/21 09:00 08/08/21 10:21 Sertraline Hcl 50 Mg Tablet PO 50 mg DAILY [facility] Administration Sodium Chloride 3 ml 08/07/21 16:00 08/08/21 07:42 0.9 % Sodium Chloride Flush 3 Ml Syringe IVFLUSH 3 ml QSHIFT [facility] Administration Zolpidem Tartrate 10 mg 08/07/21 21:00 08/07/21 21:17 Zolpidem Tartrate 5 Mg Tablet PO 10 mg BEDTIME SHARLENE Administration Home Medications Medication Instructions Recorded Confirmed Last Taken Type cholecalciferol (vitamin D3) 1,250 1,250 mcg PO SA 08/07/21 08/07/21 08/06/21 History mcg (50,000 unit) capsule Physical Exam Vital Signs: Vital Signs: Last Vital Signs Temp 98.6 F 08/08/21 07:36 Pulse 102 H 08/08/21 10:19 Resp 19 08/08/21 10:19 BP 121/68 08/08/21 10:19 Pulse Ox 96 08/08/21 07:36 Body Mass Index 24.6 Const: General: cooperative and no acute distress HENMT: Other: Unremarkable Neck: Neck: Yes normal visual inspection Chest: Chest palpation & inspection: normal inspection of the chest Resp: Auscultation: clear to auscultation bilaterally, no crackles and no wheezes Cardio: Jugular venous distension: no JVD Palpation: normal PMI Heart sounds: S1 normal heart sound present, S2 normal heart sound present, no gallops, no murmurs and no rubs GI: Palpation (GI): Soft to palpation Back/Spine/Pelvis: Other: unremarkable Skin: General skin exam: no rashes or lesions noted Neuro: Cranial nerves: Yes Other cranial nerve findings present Extrem: General: Yes no clubbing, cyanosis or edema Psych: Mental Status: other Results Labs and Meds Result diagrams: 08/08/21 04:39 08/08/21 04:39 Lab results: Laboratory Results - last 24 hr 08/07/21 08/07/21 08/07/21 11:21 11:21 11:21 WBC RBC Hgb Hct MCV MCH MCHC RDW Plt Count MPV Absolute Nucleated RBC Nucleated RBC % (auto) Sodium 139 Potassium 4.0 Chloride 104 Carbon Dioxide 25 Anion Gap 14 BUN 18 H Creatinine 0.79 Estim Creat Clear Calc 46.0 Estimated GFR > 60 Random Glucose 93 Lactic Acid 1.0 Calcium 8.8 D Magnesium 1.9 Total Bilirubin 2.7 H Direct Bilirubin 1.1 H AST 14 ALT 19 Alkaline Phosphatase 93 Troponin I High Sens B-Natriuretic Peptide Total Protein 5.9 L Albumin 3.9 Lipase 9 Stool Occult Blood C. difficile Tox B Gene COVID-19 (JOSE) COVID-19 Clin Com Blood Type Antibody Screen 08/07/21 08/07/21 08/07/21 11:21 11:30 11:53 WBC RBC Hgb Hct MCV MCH MCHC RDW Plt Count MPV Absolute Nucleated RBC Nucleated RBC % (auto) Sodium Potassium Chloride Carbon Dioxide Anion Gap BUN Creatinine Estim Creat Clear Calc Estimated GFR Random Glucose Lactic Acid Calcium Magnesium Total Bilirubin Direct Bilirubin AST ALT Alkaline Phosphatase Troponin I High Sens B-Natriuretic Peptide Total Protein Albumin Lipase Stool Occult Blood NEGATIVE C. difficile Tox B Gene NEGATIVE COVID-19 (JOSE) COVID-19 Clin Com Blood Type B Positive Antibody Screen NEGATIVE 08/07/21 08/07/21 08/08/21 11:57 20:56 00:28 WBC RBC Hgb 10.7 L Hct 32.7 L MCV MCH MCHC RDW Plt Count MPV Absolute Nucleated RBC Nucleated RBC % (auto) Sodium Potassium Chloride Carbon Dioxide Anion Gap BUN Creatinine Estim Creat Clear Calc Estimated GFR Random Glucose Lactic Acid Calcium Magnesium Total Bilirubin Direct Bilirubin AST ALT Alkaline Phosphatase Troponin I High Sens B-Natriuretic Peptide 258 H Total Protein Albumin Lipase Stool Occult Blood C. difficile Tox B Gene COVID-19 (JOSE) Negative COVID-19 Z2 Com See Note Blood Type Antibody Screen 08/08/21 08/08/21 08/08/21 04:39 04:39 04:39 WBC 12.3 H RBC 3.65 L Hgb 10.9 L Hct 33.5 L MCV 91.8 MCH 29.9 MCHC 32.5 RDW 14.9 Plt Count 96 L MPV 9.9 Absolute Nucleated RBC 0.000 Nucleated RBC % (auto) 0.0 Sodium 137 Potassium 3.8 Chloride 108 Carbon Dioxide 20 L Anion Gap 13 BUN 15 Creatinine 0.60 Estim Creat Clear Calc 60.5 Estimated GFR > 60 Random Glucose 96 Lactic Acid Calcium 8.4 Magnesium Total Bilirubin Direct Bilirubin AST ALT Alkaline Phosphatase Troponin I High Sens 16.2 B-Natriuretic Peptide Total Protein Albumin Lipase Stool Occult Blood C. difficile Tox B Gene COVID-19 (JOSE) COVID-19 Clin Com Blood Type Antibody Screen ECG Interpretation: EKG with atrial fibrillation at a rate of 120/min. Imaging Radiologist's impression: Impressions Abdomen/Pelvis CT 08/07/21 11:04 IMPRESSION: Severe rectosigmoid wall thickening with surrounding fluid and fat stranding consistent with nonspecific acute proctocolitis. The extension to involve the rectum would be unusual for ischemic colitis. An infectious or inflammatory etiology is favored. Chest X-Ray 08/07/21 23:26 IMPRESSION: Question of mild pulmonary vascular congestion. Question of left lower lobe patchy infiltrate. Assessment and Plan (1) Atrial fibrillation with RVR: Status: Acute (2) Colitis: Status: Acute Atrial fibrillation rapid ventricular rate most likely due to the un derlying colitis. Currently on IV Cardizem drip and may be continued. Continue beta-blockers. If rate remains fast, then possibly add digoxin-load followed by maintenance. Continue anticoagulation without interruption. We will follow up with you. High sensitive troponin 16.2. Cardiac BNP 258. Procedures Date of Service Date of Service: 08/08/21
[2021-08-08 12:17] LABS: CDiff Gene PCR NEGATIVE (Negative)
--- NOTE | 2021-08-08 12:44 | HO.PM.IMPN ---
Subjective Subjective Date of Service: 08/08/21 Interval History: Colitis, ? also has hemorrhoids seems like. Review of Systems no new blood episode with diarrhae still has feeling generalized weak , has nausea. And also has diarrhae seems to be tachycardia Physical Exam Vital Signs: Vital Signs: Last Vital Signs Temp 98.3 F 08/08/21 12:00 Pulse 108 H 08/08/21 12:00 Resp 18 08/08/21 12:00 BP 126/76 08/08/21 12:00 Pulse Ox 96 08/08/21 12:00 Body Mass Index 24.6 Constitutional:? Not in acute distress, has some pain in the left lower belly. HEENT:? Eyes:? Anicteric , no discharge. Cvs:? Irregular rhythm, [id number] . res: clear to auscultation ,no rhonchii or wheezing abd: no rebound or guarding ,has some left lower abd pain, bs present. ext pulses present , no cyanosis neuro: axo3 , nonfocal. skin: no erythema or discharge Objective Data Active Medications Apixaban (Apixaban 5 Mg Tablet) 5 mg PO BID [facility] Diltiazem HCl 125 mg/ Sodium (Chloride) 125 mls @ 0 mls/hr IVCONT .Q0M [facility]; Protocol Last Admin: 08/08/21 10: Dose: 15 mg/hr, 15 mls/hr Documented by: SUSAN Levofloxacin (Levaquin) 500 mg in 100 mls @ 100 mls/hr IV Q24H [facility] Last Infusion: 08/08/21 11:19 Dose: 0 mls/hr Documented by: SUSAN Metronidazole (Flagyl) 500 mg in 100 mls @ 100 mls/hr IV Q8H [facility] Last Infusion: 08/08/21 06:25 Dose: 0 mls/hr Documented by: INDY Levothyroxine Sodium (Levothyroxine Sodium 25 Mcg Tablet) 25 mcg PO DAILY [facility] Last Admin: 08/08/21 10:21 Dose: 25 mcg Documented by: SUSAN Metoprolol Succinate (Metoprolol Succinate Er 50 Mg Tab.Er.24h) 50 mg PO BID [facility]; Protocol Last Admin: 08/08/21 10:21 Dose: Not Given Documented by: SUSAN Non-Admin Reason: Physician Held Med Morphine Sulfate (Morphine Sulfate 2 Mg/Ml Cartridge) 1 mg IVPUSH Q3H PRN; Protocol PRN Reason: Pain, Mild (Pain Scale 1-3) Last Admin: 08/08/21 05:33 Dose: 1 mg Documented by: GURWINDER Non-Formulary Medication (Cholecalciferol (Vitamin D3)) 1,250 mcg PO [facility] Pharmacy Consult (Consult Rx Perform Med Rec) 1 each MISCELLANE ONCE PRN PRN Reason: Consult order Sertraline HCl (Sertraline Hcl 50 Mg Tablet) 50 mg PO DAILY [facility] Last Admin: 08/08/21 10:21 Dose: 50 mg Documented by: SUSAN Sodium Chloride (0.9 % Sodium Chloride Flush 3 Ml Syringe) 3 ml IVFLUSH QSHIFT [facility] Last Admin: 08/08/21 07:42 Dose: 3 ml Documented by: SUSAN Zolpidem Tartrate (Zolpidem Tartrate 5 Mg Tablet) 10 mg PO BEDTIME [facility] Last Admin: 08/07/21 21:17 Dose: 10 mg Documented by: CHRISTIANO Labs CBC & Chem 7: 08/08/21 04:39 08/08/21 04:39 Labs: Laboratory Results - last 24 hr 08/07/21 08/07/21 08/08/21 11:30 11:53 00:28 MCV MCH MCHC RDW Plt Count MPV Absolute Nucleated RBC Nucleated RBC % (auto) Anion Gap Estim Creat Clear Calc Estimated GFR Random Glucose Calcium Troponin I High Sens B-Natriuretic Peptide 258 H Stool Occult Blood NEGATIVE C. difficile Tox B Gene NEGATIVE 08/08/21 08/08/21 08/08/21 04:39 04:39 04:39 MCV 91.8 MCH 29.9 MCHC 32.5 RDW 14.9 Plt Count 96 L MPV 9.9 Absolute Nucleated RBC 0.000 Nucleated RBC % (auto) 0.0 Anion Gap 13 Estim Creat Clear Calc 60.5 Estimated GFR > 60 Random Glucose 96 Calcium 8.4 Troponin I High Sens 16.2 B-Natriuretic Peptide Stool Occult Blood C. difficile Tox B Gene 08/08/21 07:40 MCV MCH MCHC RDW Plt Count MPV Absolute Nucleated RBC Nucleated RBC % (auto) Anion Gap Estim Creat Clear Calc Estimated GFR Random Glucose Calcium Troponin I High Sens B-Natriuretic Peptide Stool Occult Blood C. difficile Tox B Gene NEGATIVE Microbiology Microbiology Results: Microbiology 08/07/21 11:52 Stool Culture - Preliminary Stool Normal so far. Assessment and Plan (1) Atrial fibrillation with RVR: Status: Acute (2) Colitis: Status: Acute Assessment and Plan: 1. Sepsis/colitis: Lactic acid normal blood cultures peniding No fever, tachycardia probably related to AFib. Sepsis seems improving Monitor H&H stable around 10-11 range, no new episode of diarrhea with blood also looks like has hemorrhoid external maybe that might be contributing with blood earlier. stop IV fluid, try clear liquid diet, Levaquin, Flagyl, morphine for pain. stool studies 2. AFib with RVR: discussed with Cardiology seems like AFib with rapid ventricular rate related to colitis . taper to stopCardizem drip, start metoprolol Cardio evaluation continue Eliquis. 3. Hypothyroidism:? Continue some thyroid supplement. 4. Lumbar radiculopathy: at least 3-4 week durtion, Patient could could not tolerate steroids-mri done outpatient, pending As per PCP is note son is considering epidural, if needed we will consider radiology evaluation DVT prophylaxis:? Mechanical devices. Above management discussed with the in detail with the patient, total time spent with Assessment and coordination plan including patient discussion as well as interpreting daughter as well as ED physician discussion 70 minutes. In addition goal of care also discussed patient is DNR DNI Quality Stroke Does the patient have a stroke diagnosis?: No VTE Prior VTE?: No VTE Risk Level:: Medical - moderate - high VTE Device Contraindication: N/A - Device Ordered VTE Drug Contraindication: Treatment Not Indicated
[2021-08-08 14:01] LABS: Leukocytes Stool Qualitative FEW: < 2/OIF (NEGATIVE)
[2021-08-08] MEDS: Apixaban 5 MG TABLET PO (14:43)
[2021-08-08] MEDS: Metoprolol Tartrate 50 MG TABLET PO (16:01)
[2021-08-08] MEDS: Metoprolol Succinate ER 50 MG TAB.ER.24H PO (21:06)
[2021-08-08] MEDS: Zolpidem Tartrate 5 MG TABLET 10 MG PO (21:06)
--- NOTE | 2021-08-08 22:20 | PM.GICN ---
History of Present Illness Data of Consult Service Date: 08/09/21 Requesting physician: Julio Vega Primary Care Provider: Pushpa Cuevas MD [facility] Reason for consult: colitis 86-year-old female with past medical history of chronic AFib, hypertension, anxiety, hypothyroidism, lumbar radiculopathy who I am seeing for assessment of colitis. PAtient had few days of non radiating, sharp left lower abdo pain worse with food and associated with bloody diarrhea. She denies any nausea or vomiting but had poor appetite. On presentation to ED found to have rapid A-fib and CT imaging with lft sided colitis. She received IV levofloxacin and metronidazole and started on Cardizem drip due to AFib with RVR, she remains on her eliquis. HGB has been stable around 10-11 g/dl/ Today she says pain is much reduced, no blood in stools. appetite is fair, no fever. Review of Systems Review of Systems: Yes all other systems are reviewed and are negative ENT: Reports Normal hearing present Cardiovascular: Cardiovascular: Reports as per HPI, Reports no additional cardiovascular complaints, Denies acrocyanosis, Denies cool extremities, Denies painful fingertips, Denies chest pain, Denies chest pain at rest, Denies diaphoresis, Denies syncope, Denies irregular heart rhythm, Denies claudication, Denies leg edema, Denies lightheadedness, Denies palpitations and Denies dyspnea Respiratory: Respiratory: Denies dyspnea Gastrointestinal: Gastrointestinal: Reports as per HPI Genitourinary: Genitourinary: Reports no additional female genitourinary complaints Musculoskeletal: Musculoskeletal: Reports back pain Integumentary/Breasts: Skin/Breast: Reports system reviewed and no additional complaints, except as docu Neurologic: Reports Normal hearing present and Denies syncope Psychiatric: Psychiatric: Reports no additional psychiatric complaints Endocrine: Endocrine: Denies palpitations Hematologic/Lymphatic: Hematologic/Lymphatic: Reports no additional hematologic/lymphatic complaints Allergic/Immunologic: Allergic/Immunologic: Reports no additional allergic/immunologic complaints [facility] Past Medical History Medical History Acquired deformity of toenail Acquired hypothyroidism Anxiety disorder Atrial fibrillation Chronic anticoagulation Degenerative disc disease, lumbar HTN (hypertension) Insomnia Left bundle branch block Legionnaires' disease Menopause Skin lesion of neck Family History Family History Brother Leukemia Surgical History Surgical History Previous back surgery Social History Social History Household Members: None Housing: Apartment Housing Other:: independent living Do you presently have visiting nurse or other home services: No Alcohol intake: current Alcohol intake frequency: a few times a week Patient Tobacco Use Status: Former Tobacco user Tobacco use type: Cigarette Cigarettes Per Day: 10 e-Cigarette/Vaping Use: Never Used Second Hand Smoke Exposure: No service: No Current occupational status: retired Meds Allergies Allergy/AdvReac Type Severity Reaction Status Date / Time amoxicillin [From AUGMENTIN] Allergy Intermediate RASH Verified 08/07/21 11:06 gabapentin [GABAPENTIN] Allergy Unknown UNKNOWN Verified 08/07/21 11:06 Active Medications: Current Medications Generic Name Dose Route Start Last Admin Trade Name Freq PRN Reason Stop Dose Admin Apixaban 5 mg 08/08/21 22:00 08/08/21 21:06 Apixaban 5 Mg Tablet PO Not Given Q12H SHAR[facility]E Levofloxacin 500 mg in 100 mls @ 100 mls/hr 08/08/21 11:00 08/08/21 11:19 Levaquin IV Infused Q24H [facility] Infusion Metronidazole 500 mg in 100 mls @ 100 mls/hr 08/07/21 21:00 08/08/21 22:06 Flagyl IV Infused Q8H [facility] Infusion Levothyroxine Sodium 25 mcg 08/08/21 09:00 08/08/21 10:21 Levothyroxine Sodium 25 Mcg Tablet PO 25 mcg DAILY [facility] Administration Metoprolol Succinate 50 mg 08/07/21 21:00 08/08/21 21:06 Metoprolol Succinate Er 50 Mg Tab.Er.24h PO 50 mg BID [facility] Administration Protocol Morphine Sulfate 1 mg 08/07/21 16:40 08/08/21 05:33 Morphine Sulfate 2 Mg/Ml Cartridge IVPUSH 1 mg Q3H PRN Administration Pain, Mild (Pain Scale 1-3) Protocol Non-Formulary Medication 1,250 mcg 08/08/21 15:09 Cholecalciferol (Vitamin D3) PO [facility] Pharmacy Consult 1 each 08/07/21 11:04 Consult Rx Perform Med Rec MISCELLANE ONCE PRN Consult order Sertraline HCl 50 mg 08/08/21 09:00 08/08/21 10:21 Sertraline Hcl 50 Mg Tablet PO 50 mg DAILY [facility] Administration Sodium Chloride 3 ml 08/07/21 16:00 08/08/21 16:02 0.9 % Sodium Chloride Flush 3 Ml Syringe IVFLUSH 3 ml QSHIFT [facility] Administration Zolpidem Tartrate 10 mg 08/07/21 21:00 08/08/21 21:06 Zolpidem Tartrate 5 Mg Tablet PO 10 mg BEDTIME [facility] Administration Home Medications Medication Instructions Recorded Confirmed Last Taken Type cholecalciferol (vitamin D3) 1,250 1,250 mcg PO SA 08/07/21 08/07/21 08/06/21 History mcg (50,000 unit) capsule Physical Exam Vital Signs: Vital Signs: Last Vital Signs Temp 96.8 F 08/08/21 19:11 Pulse 116 H 08/08/21 19:11 Resp 16 08/08/21 19:11 BP 122/65 08/08/21 19:11 Pulse Ox 96 08/08/21 19:11 Body Mass Index 24.6 Const: General: cooperative and no acute distress Orientation/consciousness: patient oriented x3 HENMT: Other: Unremarkable Neck: Neck: Yes normal visual inspection Chest: Chest palpation & inspection: normal inspection of the chest Resp: Effort & Inspection: normal respiratory effort Auscultation: clear to auscultation bilaterally, no crackles and no wheezes Cardio: Jugular venous distension: no JVD Palpation: normal PMI Heart sounds: S1 normal heart sound present, S2 normal heart sound present, no gallops, no murmurs and no rubs GI: Inspection: Yes normal to inspection Palpation (GI): Soft to palpation Auscultation: normal bowel sounds Back/Spine/Pelvis: Other: unremarkable Skin: General skin exam: no rashes or lesions noted Neuro: General: patient oriented x3 Cranial nerves: Yes Normal hearing present and Yes Other cranial nerve findings present Extrem: General: Yes normal to inspection and Yes no clubbing, cyanosis or edema Psych: Appearance: grossly normal Results Labs CBC & Chem 7: 08/09/21 05:33 08/09/21 05:33 Labs: Short CBC 08/08/21 Range/Units 04:39 WBC 12.3 H (4.8-10.8) X10*3/uL Hgb 10.9 L (12.0-16.0) g/dl Hct 33.5 L (37-47) % Plt Count 96 L (160-400) X10*3/uL BMP 08/08/21 04:39 Sodium 137 Potassium 3.8 Chloride 108 Carbon Dioxide 20 L BUN 15 Creatinine 0.60 Calcium 8.4 Microbiology Microbiology Results: Microbiology 08/07/21 11:29 Blood - Venous Blood Culture - Preliminary No growth after 24 hours. 08/07/21 11:21 Blood - Venous Blood Culture - Preliminary No growth after 24 hours. 08/07/21 11:52 Stool Stool Culture - Preliminary Normal so far. Imaging CT scan - pelvis: Attestation: I personally reviewed and interpreted this imaging study as follows: My impression: left sided colonic stranding and thickening of colon, gallstones and scoliosis o spine with degeneration Assessment and Plan (1) Colitis: Status: Acute !/ Left sided colitis, probably ischmeic in nature from dehydration and possible from a-fib. ddx; infectious colitis, less likely IBD or neoplasia. no nsaid use, she feels clinically improved but having diarrhea, prob from antibiotics or resolving colitis. c diff was neg, few leucocytes in stool. PLAN: 1/ can d/c ABX cont with rate control of a fib, avoiding hypotension and aggressive BP control 2/ if she worsens then sigmoidoscopy with bx 3/ await stool culture to r/o salmonella or other infectious causes Procedures Date of Service Date of Service: 08/09/21
[2021-08-09] VITALS (13 sets, daily range): BP systolic 113–141; BP diastolic 62–90; PULSE 93–140; RESP 18–126; TEMP 36.7–37.3; O2SAT 90–96
[2021-08-09] MEDS: 0.9 % Sodium Chloride Flush 3 ML SYRINGE IVFLUSH ×4 (00:05→21:05)
[2021-08-09] MEDS: metroNIDAZOLE/NS 500 MG/100 ML PIGGYBACK 100 MG IV (04:53)
[2021-08-09] MEDS: Metoprolol Tartrate 5 MG/5 ML VIAL IVPUSH (05:42)
--- NOTE | 2021-08-09 06:43 | PC.NURSE ---
Patient's HR Afib , sustaining in the 140's,
--- NOTE | 2021-08-09 06:45 | PC.NURSE ---
Patient in Afib on telemetry, HR sustaining in the 140's. Patient asymptomatic. Dr. Salazar notified.Metoprol 5 mg IV ordered/ administered.HR now one teens/ one twenties. VSS, will continue to monitor and report any changes.
[2021-08-09 06:48] LABS: Hemoglobin 10.8 g/dl (12.0-16.0); Mean Corpuscular HGB Conc 31.8 g/dl (31.0-35.0); Mean Corpuscular Volume 91.4 fL (80-98); Red Blood Count 3.72 X10*6/uL (4.20-5.50); Red Cell Distribution Width 14.6 % (11.0-16.0); White Blood Count 8.7 X10*3/uL (4.8-10.8)
[2021-08-09 06:56] LABS: Anion Gap 14 (12-20); Blood Urea Nitrogen 17 mg/dL (9-16); Calcium 8.4 mg/dL (8.4-10.2); Carbon Dioxide 20 mmol/L (22-29); Chloride 108 mmol/L (96-108); Creatinine Clr Calc Pharmacy 59.5; Estimated Glomerular Filt Rate > 60; Glucose Random 67 mg/dL (60-115); Potassium 3.4 mmol/L (3.3-5.1); Sodium 139 mmol/L (135-145)
[2021-08-09 07:04] LABS: Platelet Count 95 X10*3/uL (160-400)
[2021-08-09] MEDS: Acetaminophen 325 MG TABLET 650 MG PO ×2 (08:08→14:59)
[2021-08-09] MEDS: Metoprolol Succinate ER 50 MG TAB.ER.24H PO ×2 (08:08→21:04)
[2021-08-09] MEDS: Sertraline HCL 50 MG TABLET PO (08:08)
[2021-08-09] MEDS: Levothyroxine Sodium 25 MCG TABLET PO (08:08)
[2021-08-09] MEDS: Apixaban 5 MG TABLET PO ×2 (08:09→21:04)
[2021-08-09] MEDS: dilTIAZem HCL 125 MG in 0.9 % Sodium Chloride 100 ML 10 MG IVCONT ×2 (09:23→18:05)
--- NOTE | 2021-08-09 10:01 | MHC.CM.PN ---
CM MET WITH PT WHO REPORTS SHE LIVES IN AN INDEPENDENT LIVING FACILITY AND HAS NO OUTSIDE SERVICES. PT REPORTS BEING FULLY INDEPENDENT AND USING A WALKER TO AMBULATE. PT CONFIRMS HER PCP IS MARIO RICHTER AND SAYS SHE HAS A HCP COMPLETED NAMING HER SON, MIGDALIA, THE AGENT. IMM DELIVERED CURRENT DC PLAN IS HOME WITH NO SERVICES PT REPORTS NOT BEING INTERESTED IN [facility] PTS SON TO TRANSPORT
--- NOTE | 2021-08-09 10:06 | HO.PM.IMPN ---
Subjective Subjective Date of Service: 08/09/21 Interval History: afib , colitis Review of Systems Patient still has abdominal pain and diarrhea, abdominal pain is somewhat slightly better but otherwise unchanged from yesterday. vent rate 130-140 range Denies any new complaint of chest pain or shortness of breath or fever or chills or nausea or vomiting Denies any cough Denies any weakness or numbness. Physical Exam Vital Signs: Vital Signs: Last Vital Signs Temp 98.0 F 08/09/21 07:44 Pulse 140 H 08/09/21 07:44 Resp 20 08/09/21 07:44 BP 131/86 08/09/21 07:44 Pulse Ox 92 08/09/21 07:44 Body Mass Index 24.6 Physical exam: Appearance: Alert.? Oriented X3.? not in distress.? Eyes: Pupils equal, round and reactive to light. cvs: irregular rythem,tachy, [id number] res: clear to auscultation ,no rhonchii or wheezing abd: no rebound or guarding ,nt, bs present. ext pulses present , no cyanosis . neuro: axo3 , nonfocal. Objective Data Active Medications Acetaminophen (Acetaminophen 325 Mg Tablet) 650 mg PO Q6H [facility] Last Admin: 08/09/21 08:08 Dose: 650 mg Documented by: SHIVAM Apixaban (Apixaban 5 Mg Tablet) 5 mg PO Q12H [facility] Last Admin: 08/09/21 08:09 Dose: 5 mg Documented by: SHIVAM Levofloxacin (Levaquin) 500 mg in 100 mls @ 100 mls/hr IV Q24H [facility] Last Infusion: 08/08/21 11:19 Dose: 0 mls/hr Documented by: SUSAN Metronidazole (Flagyl) 500 mg in 100 mls @ 100 mls/hr IV Q8H [facility] Last Infusion: 08/09/21 06:27 Dose: 100 mls/hr Documented by: LEIGHANN Diltiazem HCl 125 mg/ Sodium (Chloride) 125 mls @ 0 mls/hr IVCONT .Q0M [facility]; Protocol Last Admin: 08/09/21 09:23 Dose: 10 mg/hr, 10 mls/hr Documented by: RAJ Levothyroxine Sodium (Levothyroxine Sodium 25 Mcg Tablet) 25 mcg PO DAILY [facility] Last Admin: 08/09/21 08:08 Dose: 25 mcg Documented by: SHIVAM Metoprolol Succinate (Metoprolol Succinate Er 50 Mg Tab.Er.24h) 50 mg PO BID [facility]; Protocol Last Admin: 08/09/21 08:08 Dose: 50 mg Documented by: SHIVAM Morphine Sulfate (Morphine Sulfate 2 Mg/Ml Cartridge) 1 mg IVPUSH Q3H PRN; Protocol PRN Reason: Pain, Mild (Pain Scale 1-3) Last Admin: 08/08/21 05:33 Dose: 1 mg Documented by: GURWINDER Non-Formulary Medication (Cholecalciferol (Vitamin D3)) 1,250 mcg PO SA [facility] Pharmacy Consult (Consult Rx Perform Med Rec) 1 each MISCELLANE ONCE PRN PRN Reason: Consult order Sertraline HCl (Sertraline Hcl 50 Mg Tablet) 50 mg PO DAILY [facility] Last Admin: 08/09/21 08:08 Dose: 50 mg Documented by: SHIVAM Sodium Chloride (0.9 % Sodium Chloride Flush 3 Ml Syringe) 3 ml IVFLUSH QSHIFT [facility] Last Admin: 08/09/21 08:09 Dose: 3 ml Documented by: SHIVAM Zolpidem Tartrate (Zolpidem Tartrate 5 Mg Tablet) 10 mg PO BEDTIME [facility] Last Admin: 08/08/21 21:06 Dose: 10 mg Documented by: JUAN R Labs CBC & Chem 7: 08/09/21 05:33 08/09/21 05:33 Labs: Laboratory Results - last 24 hr 08/08/21 08/08/21 08/09/21 07:40 07:40 05:33 MCV 91.4 MCH 29.0 MCHC 31.8 RDW 14.6 Plt Count 95 L MPV 11.0 Absolute Nucleated RBC 0.000 Nucleated RBC % (auto) 0.0 Anion Gap Estim Creat Clear Calc Estimated GFR Random Glucose Calcium Stool Leukocytes, Qual FEW: < 2/OIF C. difficile Tox B Gene NEGATIVE 08/09/21 05:33 MCV MCH MCHC RDW Plt Count MPV Absolute Nucleated RBC Nucleated RBC % (auto) Anion Gap 14 Estim Creat Clear Calc 59.5 Estimated GFR > 60 Random Glucose 67 Calcium 8.4 Stool Leukocytes, Qual C. difficile Tox B Gene Microbiology Microbiology Results: Microbiology 08/08/21 07:40 Stool Culture - Preliminary Stool Culture in progress. 08/07/21 11:52 Stool Culture - Preliminary Stool Normal so far. 08/07/21 11:29 Blood Culture - Preliminary Blood - Venous No growth after 24 hours. 08/07/21 11:21 Blood Culture - Preliminary Blood - Venous No growth after 24 hours. Assessment and Plan (1) Atrial fibrillation with RVR: Status: Acute (2) Diarrhea: Status: Acute Assessment and Plan: 1. colitis: Lactic acid normal, blood cultures neg@24hr ? No fever, tachycardia probably related to AFib. ? sepsis seems to be resolved , pain /dirrhae -minimum improvement Monitor H&H? stable around 10-11 range, no new episode of diarrhea with blood ?also looks like has hemorrhoid external maybe that might be contributing with blood earlier. c diff neg, stool wbc <2 , stool culture pending clear liquid diet, morphine for pain d/w Gi-probable ? more ischemic colitis rather than infectious-hold off hold of antibiotics since might be aggravating diarrhea, monitor off antibiotic. Retrospect seems like tachycardia probably related to AFib and probably patient had ischemic colitis rather than infectious colitis probable tachycardia /tachypnea was probable related to pain/afib. adjust morphine for pain control. 2. AFib with RVR: uncontrolled,discussed with Cardiology seems like AFib with rapid ventricular rate related to colitis . ?taper to stopCardizem drip, start metoprolol Cardio evaluation continue Eliquis. 3. Hypothyroidism:? Continue some thyroid supplement. 4. Lumbar radiculopathy: at least 3-4 week durtion, Patient could could not tolerate steroids-mri done outpatient, pending As per PCP is note son is considering epidural, if needed we will consider radiology evaluation DVT prophylaxis:? eliquis. Above management discussed with the in detail with the patient, total time spent with Assessment and coordination plan including patient discussion as well as interpreting daughter as well as ED physician discussion 60minutes. In addition goal of care also discussed patient is DNR DNI Quality Stroke Does the patient have a stroke diagnosis?: No VTE Prior VTE?: No VTE Risk Level:: Medical - moderate - high VTE Device Contraindication: N/A - Device Ordered VTE Drug Contraindication: Treatment Not Indicated
--- NOTE | 2021-08-09 10:46 | P.PNCA_ITS ---
Subjective Subjective Date of Service: 08/09/21 Interval history: No cardiac symptoms. Review of Systems Review of Systems Yes all other systems are reviewed and are negative Cardiovascular: Reports as per HPI, Reports no additional cardiovascular complaints, Denies acrocyanosis, Denies cool extremities, Denies painful fingertips, Denies chest pain, Denies chest pain at rest, Denies diaphoresis, Denies syncope, Denies irregular heart rhythm, Denies claudication, Denies leg edema, Denies lightheadedness, Denies palpitations and Denies dyspnea Respiratory: Denies dyspnea Gastrointestinal: Reports diarrhea Denies syncope Endocrine: Denies palpitations Physical Exam Vital Signs: Last Vital Signs Temp 98.0 F 08/09/21 07:44 Pulse 140 H 08/09/21 07:44 Resp 20 08/09/21 07:44 BP 131/86 08/09/21 07:44 Pulse Ox 92 08/09/21 07:44 Body Mass Index 24.6 Const General: cooperative and no acute distress HENWI Other: Unremarkable Neck Neck: Yes normal visual inspection Chest Chest palpation & inspection: normal inspection of the chest Resp Auscultation: clear to auscultation bilaterally, no crackles and no wheezes Cardio Jugular venous distension: no JVD Palpation: normal PMI Heart sounds: S1 normal heart sound present, S2 normal heart sound present, no gallops, no murmurs and no rubs GI Palpation (GI): Soft to palpation Back/Spine/Pelvis Other: unremarkable Skin General skin exam: no rashes or lesions noted Neuro Cranial nerves: Yes Other cranial nerve findings present Extrem General: Yes no clubbing, cyanosis or edema Psych Mental Status: other Results Labs and Meds Result diagrams: 08/09/21 05:33 08/09/21 05:33 Lab results: Laboratory Results - last 24 hr 08/08/21 08/08/21 08/09/21 07:40 07:40 05:33 WBC 8.7 RBC 3.72 L Hgb 10.8 L Hct 34.0 L MCV 91.4 MCH 29.0 MCHC 31.8 RDW 14.6 Plt Count 95 L MPV 11.0 Absolute Nucleated RBC 0.000 Nucleated RBC % (auto) 0.0 Sodium Potassium Chloride Carbon Dioxide Anion Gap BUN Creatinine Estim Creat Clear Calc Estimated GFR Random Glucose Calcium Stool Leukocytes, Qual FEW: < 2/OIF C. difficile Tox B Gene NEGATIVE 08/09/21 05:33 WBC RBC Hgb Hct MCV MCH MCHC RDW Plt Count MPV Absolute Nucleated RBC Nucleated RBC % (auto) Sodium 139 Potassium 3.4 Chloride 108 Carbon Dioxide 20 L Anion Gap 14 BUN 17 H Creatinine 0.61 Estim Creat Clear Calc 59.5 Estimated GFR > 60 Random Glucose 67 Calcium 8.4 Stool Leukocytes, Qual C. difficile Tox B Gene Progress Note: A&P Assessment and plan (1) Atrial fibrillation with RVR: Status: Acute (2) Colitis: Status: Acute Assessment and Plan: Atrial fibrillation rapid ventricular rate most likely due to the underlying colitis. Currently on IV Cardizem drip and may be continued. Continue beta- blockers. If rate remains fast, then possibly add digoxin-load followed by maintenance. Continue anticoagulation without interruption. High sensitive troponin 16.2. Cardiac BNP 258. Fall Risk Details Current Medications: Current Medications Generic Name Dose Route Start Last Admin Trade Name Freq PRN Reason Stop Dose Admin Acetaminophen 650 mg 08/09/21 08:00 08/09/21 08:08 Acetaminophen 325 Mg Tablet PO 650 mg Q6H SHARLENE Administration Apixaban 5 mg 08/08/21 22:00 08/09/21 08:09 Apixaban 5 Mg Tablet PO 5 mg Q12H SHARLENE Administration Diltiazem HCl 125 mg/ Sodium 125 mls @ 0 mls/hr 08/09/21 08:45 08/09/21 09:23 Chloride IVCONT 10 mg/hr .Q0M SHARLENE 10 mls/hr Administration Protocol Per Protocol Levothyroxine Sodium 25 mcg 08/08/21 09:00 08/09/21 08:08 Levothyroxine Sodium 25 Mcg Tablet PO 25 mcg DAILY SHARLENE Administration Metoprolol Succinate 50 mg 08/07/21 21:00 08/09/21 08:08 Metoprolol Succinate Er 50 Mg Tab.Er.24h PO 50 mg BID SHARLENE Administration Protocol Non-Formulary Medication 1,250 mcg 08/08/21 15:09 Cholecalciferol (Vitamin D3) PO [facility] Pharmacy Consult 1 each 08/07/21 11:04 Consult Rx Perform Med Rec MISCELLANE ONCE PRN Consult order Sertraline HCl 50 mg 08/08/21 09:00 08/09/21 08:08 Sertraline Hcl 50 Mg Tablet PO 50 mg DAILY SHARLENE Administration Sodium Chloride 3 ml 08/07/21 16:00 08/09/21 08:09 0.9 % Sodium Chloride Flush 3 Ml Syringe IVFLUSH 3 ml QSHIFT SHARLENE Administration Zolpidem Tartrate 10 mg 08/07/21 21:00 08/08/21 21:06 Zolpidem Tartrate 5 Mg Tablet PO 10 mg BEDTIME SHARLENE Administration Time Spent With Patient Time: Total time spent is greater than 50% in coordination of care (as document ed) at patient's floor/unit and/or counseling patient: Time with patient: less than 15 minutes Progress Note: Quality Stroke Does the patient have a stroke diagnosis?: No Procedures Date of Service Date of Service: 08/09/21
[2021-08-09 12:48] LABS: Appearance Urine CLEAR; Color Urine DK YELLOW; Glucose Urine UA NEG (NEG); Leukocyte Esterase Urine NEG (NEG); Specific Gravity - Urine >= 1.030 (1.005-1.025); Urine Blood TRACE (NEG); Urine Ketones 40 MG/DL (NEG); Urine Protein 1+ MG/DL (NEG-TRACE)
--- NOTE | 2021-08-09 13:00 | PC.NURSE ---
Cardizem drip started at 0930 at 10mg/hr.. HR 130's-140's. No changed in HR at 1030. Drip rate incerased to 15mg/hr. HR 100's-120's. Dr. Vega aware. Will continue drip at current rate.
[2021-08-09 13:03] LABS: Bacteria Urine TRACE /LPF; Mucus Urine 1+ /LPF; Squamous Epithelial Cell Urine TRACE /LPF; WBC Urine 0-2 /HPF (0-4)
--- NOTE | 2021-08-09 17:02 | PC.NURSE ---
Patient transferred to [facility] [place] via w/c ,report given to Shelly Oliveira verified with KELLEE Fuller,infusing at 15 mg/hr
[2021-08-09] MEDS: Zolpidem Tartrate 5 MG TABLET 10 MG PO (21:04)
[2021-08-10] VITALS (13 sets, daily range): BP systolic 123–145; BP diastolic 64–90; PULSE 68–141; RESP 18–20; TEMP 36.2–37.1; O2SAT 91–97
[2021-08-10] MEDS: dilTIAZem HCL 125 MG in 0.9 % Sodium Chloride 100 ML 15 MG IVCONT (05:55)
--- NOTE | 2021-08-10 09:00 | CA_ITS ---
Transthoracic Echocardiogram Patient (Last, First, Middle): Pastora Combs M Gender: Female Date of : 1935 Age: 86 Procedure Date: 08/10/2021 Procedure Type: Transthoracic Echocardiogram Location: [facility] [place] Height: 165.1 cm Weight: 67.13 kg BSA: 1.74 m2 Heart Rate: bpm BP: 128 / 89 mmHg Venipuncturist: Referring MD: Christina Salazar MD Symptoms: elevated trop , Study Quality: Fair ECG Rhythm: Atrial Fibrillation Conclusions: - The left ventricular systolic function is low normal. - Normal right ventricular cavity size and systolic function. - The left atrium is moderately dilated. The right atrium is moderately dilated. - There is moderate tricuspid valve regurgitation. - There is a small loculated pericardial effusion overlying the left ventricle. Findings Left Ventricle Normal left ventricular cavity size. There is mildly increased left ventricular wall thickness. The left ventricular systolic function is low normal. The visually estimated ejection fraction is between 50-55%. There is no evidence of regional wall motion abnormalities. Diastolic function is indeterminate on the basis of available data. Right Ventricle Normal right ventricular cavity size and systolic function. Atria The left atrium is moderately dilated. The right atrium is moderately dilated. Aortic Valve There is a normal trileaflet aortic valve. There is mild calcification of the aortic valve. There is no aortic valve stenosis. There is no aortic valve regurgitation. Mitral Valve The mitral valve appears normal. There is trace mitral valve regurgitation. There is no mitral valve stenosis. Pulmonic Valve Normal pulmonic valve structure and function. There is trace pulmonic valve regurgitation. Tricuspid Valve Normal tricuspid valve structure. There is moderate tricuspid valve regurgitation. Normal right atrial pressure. Mild pulmonary hypertension is present. Great Vessels All visible segments of the aorta are normal in size. The pulmonary artery was not well visualized. Venous The inferior vena cava is normal in size and collapses greater than 50% with inspiration. Pericardium/Pleural There is a small loculated pericardial effusion overlying the left ventricle. There are no definitive echocardiographic findings of tamponade physiology. Prior Study Comparison No significant change compared to prior study dated: 07/15/2020. Measurements 2D Linear Measurements IVSd: 0.99 0.6-0.9/0.6-1.0 cm LVIDd: 4.87 3.9-5.3/4.2-5.9 cm LVIDd Index: 2.80 2.4-3.2/2.2-3.1 cm/m2 LVIDs: 3.43 2.0-3.6 cm LVPWd: 0.95 0.7-1.1 cm Ao Root: 3.10 2.1-3.5 cm LA Diam: 4.60 2.7-3.8/3.0-4.0 cm LAIDs Index: 2.64 1.5-2.3 cm/m2 LV Mass: 207.32 67-162/88-224 g LV Mass Index: 119.15 43-95/49-115 g/m2 LVOT Diam: 2.20 3.0+(-)1.3 cm 2D Systolic Function EF 4C: 50.40 >55% EF 2C: 52.20 >55% EF BiP: 50.40 >55% Mitral Valve MV Pk E: 1.11 MV Decel Time: 160.00 E'Lateral: 9.36 E'Medial: 6.74 E/E' Med: 16.50 E/E' Lat: 11.90 PHT: 47.00 MVA PHT: 4.68 Decel Granite: 6.92 Aortic Valve AoV Pk Lele: 1.05 AoV Mn Lele: 0.66 AoV VTI: 0.18 AoV Pk Grad: 4.00 Aov Mn Grad: 2.00 SILVANA Cont.VTI: 2.66 LVOT LVOT Pk Lele: 0.77 LVOT Mn Lele: 0.46 LVOT VTI: 0.13 LVOT Pk Grad: 2.00 LVOT Mn Grad: 1.00 LVOT Diam: 2.20 LVOT Area: 3.80 Diastolic Function MV Pk E: 1.11 E'Medial: 6.74 E/E' Med: 16.50 E' Laterial: 9.36 E/E' Lat: 11.90 Tricuspid Valve TR Pk Lele: 3.01 TR Pk Grad: 36.00 RVSP: 40.00 Great Vessels Aorta Ao Root-2D: 3.10 2.0-3.7 cm Ao Asc: 2.70 2.1-3.4 cm Pulmonary Valve PV Pk Lele: 0.64 Peak PV Grad: 2.00 Updated in Other Vendor System with Status of Final Oswaldo Faust MD electronically signed on 08/10/2021 11:06:44 PM with status of Final
[2021-08-10] MEDS: Metoprolol Succinate ER 50 MG TAB.ER.24H PO ×3 (09:29→21:55)
[2021-08-10] MEDS: Levothyroxine Sodium 25 MCG TABLET PO (09:29)
[2021-08-10] MEDS: Apixaban 5 MG TABLET PO ×2 (09:29→21:55)
[2021-08-10] MEDS: Sertraline HCL 50 MG TABLET PO (09:29)
[2021-08-10] MEDS: 0.9 % Sodium Chloride Flush 3 ML SYRINGE IVFLUSH ×3 (09:30→21:55)
--- NOTE | 2021-08-10 13:11 | PM.PNCARD ---
Subjective Subjective Date of Service: 08/10/21 Principal diagnosis: Colitis, afib rvr Interval history: Cardiology follow up for afib. Seen at 1130. Today she is observed resting quietly in bed. She denies any heart palpitations or chest discomfort. No sob, PND, orthopnea or edema. Abdomen discomfort improving. Still having loose stools. Review of Systems Review of Systems as above Yes all other systems are reviewed and are negative Physical Exam Vital Signs: Last Vital Signs Temp 97.6 F 08/10/21 11:34 Pulse 141 H 08/10/21 11:34 Resp 18 08/10/21 11:34 BP 137/76 08/10/21 11:34 Pulse Ox 97 08/10/21 11:34 Body Mass Index 24.6 Const General: cooperative, no acute distress, alert and awake Orientation/consciousness: patient oriented x3 Neck Neck: Yes normal visual inspection and Yes JVD Resp Effort & Inspection: normal respiratory effort, able to speak in complete sentences and not labored Auscultation: clear to auscultation bilaterally, rales (1/3 up bilaterally), no rhonchi and no wheezes Cardio Jugular venous distension: JVD present Palpation: normal PMI Rate: regular rate and tachycardic Rhythm: abnormal rhythm (irregularly irregular) Heart sounds: S1 normal heart sound present and S2 normal heart sound present Peripheral pulses: Peripheral pulses 2+ throughout GI Inspection: Yes normal to inspection Neuro General: patient oriented x3 Extrem General: Yes normal to inspection and No edema Results Labs and Meds Result diagrams: 08/09/21 05:33 08/09/21 05:33 Progress Note: A&P Assessment and plan (1) Atrial fibrillation with RVR: Status: Acute Assessment and Plan: Hx of chronic afib. Admitted with colitis and has afib RVR. On Diltiazem drip and usual home Metoprolol for rate control. Tele shows rates 110-130 this am. She denies having palpitations or chest discomfort. Echo done 07/15/20 shows EF 50-55%, biatrial enlargement, mild MR, mod TR. Ongoing management of colitis as directed by GI/ hospitalist. Continue Diltiazem drip, with plan to eventually transition to PO diltiazem. Usual home dose was 240mg bid. Will increase Metoprolol to TID from BID. Continue Eliquis for anticoagulation. Ongoing tele monitoring. We will follow. (2) Diastolic CHF: Status: Acute Assessment and Plan: Acute. Fluid balance this admit + 3600 cc. BNP mildly elevated at 258 on 08/08. She denies sob however has fine rales each lower lobe and JVD on exam. She does not usually take diuretics at home. Cr 0.61. Will give 1 dose of Lasix 20mg IV to gently diurese her. Strict I+O monitoring. (3) HTN (hypertension): Status: Acute Assessment and Plan: Controlled at present. Increasing Metoprolol dose. (4) Colitis: Status: Acute Fall Risk Details Current Medications: Current Medications Generic Name Dose Route Start Last Admin Trade Name Freq PRN Reason Stop Dose Admin Acetaminophen 650 mg 08/09/21 08:00 08/10/21 09:28 Acetaminophen 325 Mg Tablet PO Not Given Q6H SHARLENE Apixaban 5 mg 08/08/21 22:00 08/10/21 09:29 Apixaban 5 Mg Tablet PO 5 mg Q12H SHARLENE Administration Levothyroxine Sodium 25 mcg 08/08/21 09:00 08/10/21 09:29 Levothyroxine Sodium 25 Mcg Tablet PO 25 mcg DAILY SHARLENE Administration Metoprolol Succinate 50 mg 08/07/21 21:00 08/10/21 09:29 Metoprolol Succinate Er 50 Mg Tab.Er.24h PO 50 mg BID SHARLENE Administration Protocol Morphine Sulfate 2 mg 08/09/21 10:46 Morphine Sulfate 2 Mg/Ml Cartridge IVPUSH Q3H PRN Pain, Mild (Pain Scale 1-3) Protocol Non-Formulary Medication 1,250 mcg 08/08/21 15:09 Cholecalciferol (Vitamin D3) PO [facility] Pharmacy Consult 1 each 08/07/21 11:04 Consult Rx Perform Med Rec MISCELLANE ONCE PRN Consult order Sertraline HCl 50 mg 08/08/21 09:00 08/10/21 09:29 Sertraline Hcl 50 Mg Tablet PO 50 mg DAILY SHARLENE Administration Sodium Chloride 3 ml 08/07/21 16:00 08/10/21 09:30 0.9 % Sodium Chloride Flush 3 Ml Syringe IVFLUSH 3 ml QSHIFT [facility] Administration Zolpidem Tartrate 10 mg 08/07/21 21:00 08/09/21 21:04 Zolpidem Tartrate 5 Mg Tablet PO 10 mg BEDTIME SHARLENE Administration Time Spent With Patient Time: Total time spent is greater than 50% in coordination of care (as documented) at patient's floor/unit and/or counseling patient: Time with patient: 15 - 24 minutes Progress Note: Quality Stroke Does the patient have a stroke diagnosis?: No Procedures Date of Service Date of Service: 08/10/21
--- NOTE | 2021-08-10 13:36 | MHC.CM.PN ---
Per ROUNDS discussion, Patient is not yet medically cleared for dc (Diarrhea and pain issues). HOME no services is the goal for dc and CM will follow for possible need to adjust the dc plan.
--- NOTE | 2021-08-10 13:49 | P.CDIC_ITS ---
CDI Concurrent Query Documentation Clarification: PHYSICIAN'S DOCUMENTATION REQUEST Date of Query: 08/10/21 1355 Patient Name: Pastora Combs Admit Date: 08/07/21 Dear Doctor, A review of the medical record indicates additional documentation may be needed. Please review below and update the documentation accordingly. Clinical Indicators: The diagnosis of [Diagnosis] was documented on [date] but is not consistently noted in subsequent documentation. Risk Factors/Clinical Indicators/Treatments WBC 17.1, HR 108-140 H&P: Sepsis, Colitis, Atrial Fibrillation with RVR PN 08/09/21: tachycardia probably related to AF Ischemic Colitis rather than infectious colitis Please clarify the following: * Sepsis was present on admission and is now resolved * Sepsis was present on admission and is still being monitored, evaluated, or treated * Sepsis was ruled out * Sepsis is still a likely, suspected, probable diagnosis * Other ? please specify * Unable to determine Use of terms such as suspected, likely, concern for, or probable (associated with a specific diagnosis that is being evaluated, monitored, or treated as if it exists) are acceptable and can be coded in the inpatient setting, when documented at the time of discharge. Thank you, Shu oBnner RN Extension: [phone] Please use your independent medical judgment in providing your response. THIS QUERY IS PART OF THE PERMANENT MEDICAL RECORD Provider Response: Other Other Diagnosis: colitis
[2021-08-10] MEDS: Furosemide 20 MG/2 ML VIAL IVPUSH (15:58)
--- NOTE | 2021-08-10 16:19 | HO.PM.IMPN ---
Subjective Subjective Date of Service: 08/10/21 Interval History: colitis , afib with rvr Review of Systems Abdominal pain seems improving, still has diarrhea, feels tired and exhausted. As heart racing Denies any chest pain or shortness of breath Still has abdominal pain on the left side but somewhat better than yesterday Denies any nausea or vomiting. Physical Exam Vital Signs: Vital Signs: Last Vital Signs Temp 98 F 08/10/21 15:27 Pulse 123 H 08/10/21 15:59 Resp 18 08/10/21 15:27 BP 142/87 H 08/10/21 15:59 Pulse Ox 91 L 08/10/21 15:27 Body Mass Index 24.6 Physical exam: Appearance: Alert.? Oriented X3.? not in distress.? Eyes: Pupils equal, round and reactive to light. cvs: irregular rythem,tachy, [id number] res: clear to auscultation ,no rhonchii or wheezing abd: no rebound or guarding ,tenderness left lower abd , bs present. ext pulses present , no cyanosis . neuro: axo3 , nonfocal. Objective Data Active Medications Acetaminophen (Acetaminophen 325 Mg Tablet) 650 mg PO Q6H [facility] Last Admin: 08/10/21 16:00 Dose: Not Given Documented by: SOTERO Non-Admin Reason: Patient Refused Apixaban (Apixaban 5 Mg Tablet) 5 mg PO Q12H [facility] Last Admin: 08/10/21 09:29 Dose: 5 mg Documented by: SOTERO Diltiazem HCl 125 mg/ Sodium (Chloride) 125 mls @ 0 mls/hr IVCONT .Q0M [facility]; Protocol Levothyroxine Sodium (Levothyroxine Sodium 25 Mcg Tablet) 25 mcg PO DAILY [facility] Last Admin: 08/10/21 09:29 Dose: 25 mcg Documented by: SOTERO Metoprolol Succinate (Metoprolol Succinate Er 50 Mg Tab.Er.24h) 50 mg PO TID [facility]; Protocol Last Admin: 08/10/21 15:59 Dose: 50 mg Documented by: SOTERO Morphine Sulfate (Morphine Sulfate 2 Mg/Ml Cartridge) 2 mg IVPUSH Q3H PRN; Protocol PRN Reason: Pain, Mild (Pain Scale 1-3) Non-Formulary Medication (Cholecalciferol (Vitamin D3)) 1,250 mcg PO [facility] Pharmacy Consult (Consult Rx Perform Med Rec) 1 each MISCELLANE ONCE PRN PRN Reason: Consult order Sertraline HCl (Sertraline Hcl 50 Mg Tablet) 50 mg PO DAILY [facility] Last Admin: 08/10/21 09:29 Dose: 50 mg Documented by: SOTERO Sodium Chloride (0.9 % Sodium Chloride Flush 3 Ml Syringe) 3 ml IVFLUSH QSHIFT [facility] Last Admin: 08/10/21 16:00 Dose: 3 ml Documented by: SOTERO Zolpidem Tartrate (Zolpidem Tartrate 5 Mg Tablet) 10 mg PO BEDTIME [facility] Last Admin: 08/09/21 21:04 Dose: 10 mg Documented by: CARALN Labs CBC & Chem 7: 08/09/21 05:33 08/09/21 05:33 Microbiology Microbiology Results: Microbiology 08/08/21 07:40 Stool Culture - Preliminary Stool Normal so far. 08/07/21 11:52 Stool Culture - Final Stool 08/07/21 11:29 Blood Culture - Preliminary Blood - Venous No growth after 48 hours. 08/07/21 11:21 Blood Culture - Preliminary Blood - Venous No growth after 48 hours. Assessment and Plan (1) Atrial fibrillation with RVR: Status: Acute Assessment and Plan: 1. colitis: no sepsis ,Retrospect seems like tachycardia probably related to AFib and probably patient had ischemic colitis rather than infectious colitis probable tachycardia /tachypnea was probable related to pain/afib. Lactic acid normal, blood cultures neg@24hr ? No fever, tachycardia probably related to AFib. c diff neg, stool wbc <2 , stool culture prelim-neg ? pain /dirrhae -minimum? improvement Monitor H&H? stable around 10-11 range, no new episode of diarrhea with blood, still has diarrahae ?also looks like has hemorrhoid external maybe that might be contributing with blood earlier. clear liquid diet-will continue since patient still has pain with even clera liquid continue morphine for pain d/w Gi-probable ? more ischemic colitis rather than infectious-hold off hold of antibiotics since might be aggravating diarrhea, monitor off antibiotic. 2. AFib with RVR: uncontrolled,discussed with Cardiology seems like AFib with rapid ventricular rate related to colitis . continue Cardizem drip, on metoprolol,Eliquis. Cardio evaluation noted-rate is elevated probably related to colitis/pain. Once heart rate seems controlled please taper the Cardizem drip and stop and add p.o. Cardizem 240 mg which she is taking at home. 3. Hypothyroidism:? Continue some thyroid supplement. 4. Lumbar radiculopathy: at least 3-4 week durtion, Patient could could not tolerate steroids-mri reviewed by neuro:multilevel spondylitic disease with possible right L4-5 root compression, which could result in radicular type of pain: ?recommendation is conservative management with p.r.n. Tylenol 500 mg 3 times a day and PT OT consultation and advised to be staying active DVT prophylaxis:? ricardo. Above management discussed with the in detail with the patient, total time spent with Assessment and coordination plan including patient discussion as well as interpreting daughter as well as ED physician discussion 60minutes. In addition goal of care also discussed patient is DNR DNI Quality Stroke Does the patient have a stroke diagnosis?: No VTE Prior VTE?: No VTE Risk Level:: Medical - moderate - high VTE Device Contraindication: N/A - Device Ordered VTE Drug Contraindication: Treatment Not Indicated
[2021-08-10] MEDS: dilTIAZem HCL 125 MG in 0.9 % Sodium Chloride 100 ML 10 MG IVCONT (17:30)
[2021-08-10] MEDS: Acetaminophen 325 MG TABLET 650 MG PO (21:54)
[2021-08-10] MEDS: Zolpidem Tartrate 5 MG TABLET 10 MG PO (21:55)
[2021-08-11] VITALS (11 sets, daily range): BP systolic 112–150; BP diastolic 62–89; PULSE 102–113; RESP 18–20; TEMP 36.1–37.1; O2SAT 92–95
[2021-08-11] MEDS: dilTIAZem HCL 125 MG in 0.9 % Sodium Chloride 100 ML 10 MG IVCONT (01:31)
[2021-08-11 07:11] LABS: Hematocrit 35.1 % (37-47); Hemoglobin 11.4 g/dl (12.0-16.0); Mean Corpuscular HGB Conc 32.5 g/dl (31.0-35.0); Mean Corpuscular Hemoglobin 29.2 pg (27.0-33.0); Mean Corpuscular Volume 89.8 fL (80-98); Mean Platelet Volume 10.9 fL (9.4-12.3); Platelet Count 128 X10*3/uL (160-400); Red Blood Count 3.91 X10*6/uL (4.20-5.50); Red Cell Distribution Width 14.2 % (11.0-16.0); White Blood Count 5.1 X10*3/uL (4.8-10.8)
[2021-08-11 07:50] LABS: Anion Gap 13 (12-20); Blood Urea Nitrogen 10 mg/dL (9-16); Calcium 8.7 mg/dL (8.4-10.2); Carbon Dioxide 26 mmol/L (22-29); Chloride 104 mmol/L (96-108); Creatinine Clr Calc Pharmacy 56.7; Estimated Glomerular Filt Rate > 60; Glucose Random 91 mg/dL (60-115); Potassium 2.9 mmol/L (3.3-5.1); Sodium 140 mmol/L (135-145)
--- NOTE | 2021-08-11 09:18 | MHC.CM.PN ---
CM met with Patient at bedside to discuss PT's recommendation for STR. Patient is agreeable but asked that CM also check in with family for snf choices. CM spoke with Patient's [id number]/Jaimie at [phone], who approved a SNF search to be initiated. Referrals have been made and CM will continue to follow for dc planning.
[2021-08-11] MEDS: Metoprolol Succinate ER 50 MG TAB.ER.24H PO ×2 (09:40→20:55)
[2021-08-11] MEDS: Sertraline HCL 50 MG TABLET PO (09:40)
[2021-08-11] MEDS: Levothyroxine Sodium 25 MCG TABLET PO (09:40)
[2021-08-11] MEDS: 0.9 % Sodium Chloride Flush 3 ML SYRINGE IVFLUSH ×2 (09:40→20:55)
[2021-08-11] MEDS: Apixaban 5 MG TABLET PO ×2 (09:44→20:55)
--- NOTE | 2021-08-11 11:44 | P.PNCA_ITS ---
Subjective Subjective Date of Service: 08/11/21 <JACOB Machado - Last Filed: 08/11/21 13:04> 08/11/21 <Oswaldo Faust MD - Last Filed: 08/11/21 19:09> Principal diagnosis: Colitis, afib rvr, CHF <JACOB Machado - Last Filed: 08/11/21 13:04> Interval history: Cardiology follow up for afib, CHF. Seen at 1100. Today she reports that her abdomen is feeling better and having less diarrhea. She has mild general weakness and is frustrated over her medical/ physical condition. No CP, sob, palpitation, dizziness, edema. Does not want to go to rehab. Would like to go home when time comes. Will start eating regular food at lunch today. <JACOB Machado - Last Filed: 08/11/21 13:04> Review of Systems Review of Systems as above <JACOB Machado - Last Filed: 08/11/21 13:04> Physical Exam Vital Signs: Last Vital Signs Temp 97.0 F 08/11/21 11:14 Pulse 105 H 08/11/21 11:14 Resp 20 08/11/21 11:14 BP 139/77 08/11/21 11:14 Pulse Ox 94 08/11/21 11:14 Body Mass Index 24.6 <JACOB Machado - Last Filed: 08/11/21 13:04> Const General: cooperative, no acute distress, alert and awake <JACOB Machado - Last Filed: 08/11/21 13:04> Orientation/consciousness: patient oriented x3 <JACOB Machado - Last Filed: 08/11/21 13:04> Eyes Conjunctivae: conjunctivae normal <JACOB Machado - Last Filed: 08/11/21 13:04> Neck Other: JVD present <JACOB Machado - Last Filed: 08/11/21 13:04> Neck: Yes normal visual inspection <JACOB Machado - Last Filed: 08/11/21 13:04> Resp Effort & Inspection: normal respiratory effort, able to speak in complete sentences and not labored <Vandana Way NPC - Last Filed: 08/11/21 13:04> Auscultation: clear to auscultation bilaterally, rales (each lower lobe), no rhonchi and no wheezes <Vandana Way NPC - Last Filed: 08/11/21 13:04> Cardio Jugular venous distension: JVD present <Vandana Way [facility] - Last Filed: 08/11/21 13:04> Palpation: normal PMI <Vandana aWy [facility] - Last Filed: 08/11/21 13:04> Rate: regular rate and tachycardic <Vandana Way [facility] - Last Filed: 08/11/21 13:04> Rhythm: abnormal rhythm (irregular) <Vandana Way [facility] - Last Filed: 08/11/21 13:04> Heart sounds: S1 normal heart sound present and S2 normal heart sound present <Vandana Way [facility] - Last Filed: 08/11/21 13:04> Peripheral pulses: Peripheral pulses 2+ throughout <Vandana Way [facility] - Last Filed: 08/11/21 13:04> GI Inspection: Yes normal to inspection <Vandana Way [facility] - Last Filed: 08/11/21 13:04> Neuro General: patient oriented x3 <Vandana Way [facility] - Last Filed: 08/11/21 13:04> Extrem General: Yes normal to inspection and No edema <Vandana Way [facility] - Last Filed: 08/11/21 13:04> Results Labs and Meds Result diagrams: : 08/11/21 06:06 08/11/21 06:06 <[address] [facility] - Last Filed: 08/11/21 13:04> Lab results: Laboratory Results - last 24 hr 08/11/21 08/11/21 06:06 06:06 WBC 5.1 RBC 3.91 L Hgb 11.4 L Hct 35.1 L MCV 89.8 MCH 29.2 MCHC 32.5 RDW 14.2 Plt Count 128 L D MPV 10.9 Absolute Nucleated RBC 0.000 Nucleated RBC % (auto) 0.0 Sodium 140 Potassium 2.9 L Chloride 104 Carbon Dioxide 26 Anion Gap 13 BUN 10 Creatinine 0.64 Estim Creat Clear Calc 56.7 Estimated GFR > 60 Random Glucose 91 Calcium 8.7 <JACOB Machado - Last Filed: 08/11/21 13:04> Progress Note: A&P Assessment and plan (1) Atrial fibrillation with RVR: Status: Acute <JACOB Machado - Last Filed: 08/11/21 13:04> Assessment and Plan: Hx of chronic afib. Admitted with colitis and has afib RVR. On Dil tiazem drip and usual home Metoprolol for rate control. Tele shows rates 90-120 this am. She denies having palpitations or chest discomfort. Echo done yesterday shows EF 50-55%, biatrial enlargement, mod TR - no change from last echo. GI symptoms reported to be improving. Ongoing management of colitis as directed by GI/ hospitalist. No on regular diet. Will stop Diltiazem drip and restart usual home Diltiazem CD 240mg bid. Will put Metoprolol xl back to her usual home 50mg bid. Continue Eliquis for anticoagulation. Ongoing tele monitoring. We will follow. <JACOB Machado - Last Filed: 08/11/21 13:04> (2) Diastolic CHF: Status: Acute <JACOB Machado - Last Filed: 08/11/21 13:04> Assessment and Plan: Acute. Has JVD on exam and rales. Recieved 1 dose of IV Lasix yesterday. Fluid balance this admit + 2500 cc. BNP mildly elevated at 258 on 08/08. She denies sob however has still has fine rales each lower lobe and JVD on exam. She does not usually take diuretics at home. Instructed on deep inspiration at times, as may have some atelectasis as well. Will hold on further diuretics at this time. K down to 2.9 today - needs supplement. Strict I+O monitoring. <JACOB Machado - Last Filed: 08/11/21 13:04> (3) Colitis: Status: Acute <JACOB Machado - Last Filed: 08/11/21 13:04> Fall Risk Details Current Medications: Current Medications Generic Name Dose Route Start Last Admin Trade Name Bk PRN Reason Stop Dose Admin Acetaminophen 650 mg 08/09/21 08:00 08/11/21 09:40 Acetaminophen 325 Mg Tablet PO Not Given Q6H SHARLENE Apixaban 5 mg 08/08/21 22:00 08/11/21 09:44 Apixaban 5 Mg Tablet PO 5 mg Q12H SHARLENE Administration Diltiazem HCl 125 mg/ Sodium 125 mls @ 0 mls/hr 08/10/21 16:15 08/11/21 01:31 Chloride IVCONT 10 mg/hr .Q0M SHARLENE 10 mls/hr Administration Protocol Per Protocol Levothyroxine Sodium 25 mcg 08/08/21 09:00 08/11/21 09:40 Levothyroxine Sodium 25 Mcg Tablet PO 25 mcg DAILY SHARLENE Administration Metoprolol Succinate 50 mg 08/10/21 15:00 08/11/21 09:40 Metoprolol Succinate Er 50 Mg Tab.Er.24h PO 50 mg TID SHARLENE Administration Protocol Morphine Sulfate 2 mg 08/09/21 10:46 Morphine Sulfate 2 Mg/Ml Cartridge IVPUSH Q3H PRN Pain, Mild (Pain Scale 1-3) Protocol Non-Formulary Medication 1,250 mcg 08/08/21 15:09 Cholecalciferol (Vitamin D3) PO [facility] Pharmacy Consult 1 each 08/07/21 11:04 Consult Rx Perform Med Rec MISCELLANE ONCE PRN Consult order Sertraline HCl 50 mg 08/08/21 09:00 08/11/21 09:40 Sertraline Hcl 50 Mg Tablet PO 50 mg DAILY SHARLENE Administration Sodium Chloride 3 ml 08/07/21 16:00 08/11/21 09:40 0.9 % Sodium Chloride Flush 3 Ml Syringe IVFLUSH 3 ml QSHIFT SHARLENE Administration Zolpidem Tartrate 10 mg 08/07/21 21:00 08/10/21 21:55 Zolpidem Tartrate 5 Mg Tablet PO 10 mg BEDTIME SHARLENE Administration <JACOB Machado - Last Filed: 08/11/21 13:04> Time Spent With Patient Time: Total time spent is greater than 50% in coordination of care (as documented) at patient's floor/unit and/or counseling patient: <JACOB Machado - Last Filed: 08/11/21 13:04> Time with patient: 15 - 24 minutes <JACOB Machado - Last Filed: 08/11/21 13:04> Progress Note: Quality Stroke Does the patient have a stroke diagnosis?: No <JACOB Machado - Last Filed: 08/11/21 13:04> Procedures Date of Service Date of Service: 08/11/21 <JACOB Machado - Last Filed: 08/11/21 13:04>
[2021-08-11] MEDS: dilTIAZem HCL CD 240 MG CAP.ER.DEG PO ×2 (13:32→20:54)
--- NOTE | 2021-08-11 13:56 | MHC.CM.PN ---
CM spoke with Patient's Son/HCP/Lucho @ [phone] to further discuss SNFs that have offered a bed ([facility], [facility])and after further discussion between Patient and Son, Patient does not want to go to SNF/STR. Patient wants to go home with [facility]. has been made aware of this and SHANTEL anticipates possible dc to home with services tomorrow.CM will follow.
--- NOTE | 2021-08-11 14:01 | P.PNIM_ITS ---
Subjective Subjective Date of Service: 08/11/21 Interval History: Seen in f/u for colitis, feels better, no abd pain Review of Systems Gen: no fever Resp: no sob, no cough CV: no chest, no POPE, no leg edema GI: No n/v, no abd pain Neuro: No confusion Physical Exam Vital Signs: Vital Signs: Last Vital Signs Temp 97.0 F 08/11/21 11:14 Pulse 105 H 08/11/21 13:32 Resp 20 08/11/21 11:14 BP 139/77 08/11/21 13:32 Pulse Ox 94 08/11/21 11:14 Body Mass Index 24.6 Objective Data Active Medications Acetaminophen (Acetaminophen 325 Mg Tablet) 650 mg PO Q6H [facility] Last Admin: 08/11/21 09:40 Dose: Not Given Documented by: DEANNA Non-Admin Reason: Patient Refused Apixaban (Apixaban 5 Mg Tablet) 5 mg PO Q12H [facility] Last Admin: 08/11/21 09:44 Dose: 5 mg Documented by: DEANNA Diltiazem HCl (Diltiazem Hcl Cd 240 Mg Cap.Er.Deg) 240 mg PO BID [facility]; Protocol Last Admin: 08/11/21 13:32 Dose: 240 mg Documented by: DEANNA Levothyroxine Sodium (Levothyroxine Sodium 25 Mcg Tablet) 25 mcg PO DAILY [facility] Last Admin: 08/11/21 09:40 Dose: 25 mcg Documented by: DEANNA Metoprolol Succinate (Metoprolol Succinate Er 50 Mg Tab.Er.24h) 50 mg PO BID S ; Protocol Morphine Sulfate (Morphine Sulfate 2 Mg/Ml Cartridge) 2 mg IVPUSH Q3H PRN; Protocol PRN Reason: Pain, Mild (Pain Scale 1-3) Non-Formulary Medication (Cholecalciferol (Vitamin D3)) 1,250 mcg PO [facility] Pharmacy Consult (Consult Rx Perform Med Rec) 1 each MISCELLANE ONCE PRN PRN Reason: Consult order Sertraline HCl (Sertraline Hcl 50 Mg Tablet) 50 mg PO DAILY [facility] Last Admin: 08/11/21 09:40 Dose: 50 mg Documented by: DEANNA Sodium Chloride (0.9 % Sodium Chloride Flush 3 Ml Syringe) 3 ml IVFLUSH QSHIFT [facility] Last Admin: 09/14/21 09:40 Dose: 3 ml Documented by: DEANNA Zolpidem Tartrate (Zolpidem Tartrate 5 Mg Tablet) 10 mg PO BEDTIME SHARLENE Last Admin: 08/10/21 21:55 Dose: 10 mg Documented by: [place] Labs CBC & Chem 7: 08/11/21 06:06 08/11/21 06:06 Labs: Laboratory Results - last 24 hr 08/11/21 08/11/21 06:06 06:06 MCV 89.8 MCH 29.2 MCHC 32.5 RDW 14.2 Plt Count 128 L D MPV 10.9 Absolute Nucleated RBC 0.000 Nucleated RBC % (auto) 0.0 Anion Gap 13 Estim Creat Clear Calc 56.7 Estimated GFR > 60 Random Glucose 91 Calcium 8.7 Microbiology Microbiology Results: Microbiology 08/08/21 07:40 Stool Culture - Final Stool Assessment and Plan (1) Atrial fibrillation with RVR: Status: Acute Assessment and Plan: 1. colitis: Clinically improving no sepsis ,Retrospect seems like tachycardia probably related to AFib and probably patient had ischemic colitis rather than infectious colitis probable tachycardia /tachypnea was probable related to pain/afib. Advance to low residue diet Lactic acid normal, blood cultures negative ?No fever, tachycardia probably related to AFib. c diff neg, stool wbc <2 , stool culture prelim-neg ? pain /dirrhae -minimum? improvement Monitor H&H? stable around 10-11 range, no new episode of diarrhea with blood, still has diarrahae ?also looks like has hemorrhoid external maybe that might be contributing with blood earlier. 2. AFib with RVR: was on iv cardizem, no rate controlled with Metoprolol and cardizem 3. Hypothyroidism:? Continue some thyroid supplement. 4. Lumbar radiculopathy: at least 3-4 week durtion, Patient could could not tolerate steroids-mri reviewed by neuro:multilevel spondylitic disease with possible right L4-5 root compression, which could result in radicular type of pain: ?recommendation is conservative management with p.r.n. Tylenol 500 mg 3 times a day and PT OT consultation and advised to be staying active DVT prophylaxis:? eliquis. DNR/DNI Quality Stroke Does the patient have a stroke diagnosis?: No VTE Prior VTE?: No VTE Risk Level:: Medical - moderate - high VTE Device Contraindication: N/A - Device Ordered VTE Drug Contraindication: Treatment Not Indicated
[2021-08-11] MEDS: Acetaminophen 325 MG TABLET 650 MG PO (15:13)
[2021-08-11] MEDS: Potassium Chloride Packet 20 MEQ PACKET 40 MEQ PO (15:13)
[2021-08-11] MEDS: Zolpidem Tartrate 5 MG TABLET 10 MG PO (20:55)
[2021-08-12] VITALS: PULSE 125
[2021-08-12 03:16] VITALS: BP 128/64; PULSE 88; RESP 20; TEMP 37.1; O2SAT 97
--- NOTE | 2021-08-12 07:18 | PC.NURSE ---
Bladder scanned >350mL, straight cathed and drained 400mL.
[2021-08-12 08:00] VITALS: BP 156/78; PULSE 102; RESP 20; TEMP 36.6; O2SAT 92
[2021-08-12 08:11] VITALS: BP 156/78; PULSE 102
[2021-08-12] MEDS: Apixaban 5 MG TABLET PO (08:11)
[2021-08-12] MEDS: Sertraline HCL 50 MG TABLET PO (08:11)
[2021-08-12] MEDS: dilTIAZem HCL CD 240 MG CAP.ER.DEG PO (08:11)
[2021-08-12] MEDS: Metoprolol Succinate ER 50 MG TAB.ER.24H PO (08:11)
[2021-08-12] MEDS: Levothyroxine Sodium 25 MCG TABLET PO (08:11)
[2021-08-12] MEDS: 0.9 % Sodium Chloride Flush 3 ML SYRINGE IVFLUSH (08:11)
[2021-08-12 09:09] LABS: Anion Gap 13 (12-20); Blood Urea Nitrogen 8 mg/dL (9-16); Calcium 8.5 mg/dL (8.4-10.2); Carbon Dioxide 26 mmol/L (22-29); Chloride 106 mmol/L (96-108); Creatinine Clr Calc Pharmacy 61.5; Estimated Glomerular Filt Rate > 60; Glucose Random 97 mg/dL (60-115); Potassium 3.5 mmol/L (3.3-5.1); Sodium 141 mmol/L (135-145)
--- NOTE | 2021-08-12 11:23 | PM.DS ---
DS: Providers Provider Date of Service: 08/12/21 Date of admission: 08/07/21 15:06 Primary care physician: Pushpa Cuevas MD Consults: 08/07/21 15:45 Consult to Cardiology Routine Consulting Provider: Armin Woodall Reason for consultation: afib Has provider been notified: No 08/07/21 16:20 Consult to Neurology Routine Consulting Provider: [facility] Reason for consultation: Lumber radiculopathy Has provider been notified: No 08/07/21 23:58 Consult to Cardiology Routine Consulting Provider: Armin Woodall Reason for consultation: Elevated troponin Has provider been notified: Yes 08/08/21 07:34 Consult to Gastroenterology Routine Consulting Provider: Fanny Ibarra Reason for consultation: colitis/bloody diarrahae Has provider been notified: No DS: Diagnosis Discharge Diagnosis (1) Atrial fibrillation with RVR: Status: Acute (2) Diastolic CHF: Status: Acute (3) Colitis: Status: Acute DS: Summary Hospital Course Hospital Course: Admission HPI Chief Complaint: Abdominal pain, bloody diarrhea, AFib 86-year-old female with past medical history of chronic AFib, hypertension, anxiety, hypothyroidism, lumbar radiculopathy:? Patient came to the hospital because chief complaint of abdominal pain, bloody diarrhea-patient says that she was on steroids for because of her lumbar radiculopathy couple of weeks ago and since then she started having diarrhea and subsequently steroid was stopped and subsequently patient had started abdominal pain3-4 days, in addition patient also found to be having AFib with RVR.? She was also saying she feels generalized weak. Could not eat well from last 3-4 days. Abdominal pain-sharp, on and off, specially in the left lower abdominal area, does not radiate, food also aggravate the pain. She denies currently any nausea or vomiting Denies any new complaint of chest pain or shortness of breath? or fever or chills or nausea or vomiting Denies any cough Denies any weakness or numbness. Lab imaging and EKG reviewed and interpreted by myself: Patient has leukocytosis, tachycardia, lactic acid normal. EKG shows AFib with RVR CT abdominal reviewed personallyshowed evidence of colitis In the ED patient received antibiotic including IV levofloxacin and metronidazole and started on Cardizem drip due to AFib with RVR.? And subsequently admission was called for above. Hospital course: 1. colitis, deemed to be ischemic type and therefore no antibiotics. stool studies negative, including cdif, culture. Symptoms have improved and diet advanced to regular diet. Was seen by GI and there was no need for intervention. 2. AFib with RVR: was on iv cardizem, and ultimetely rate controll achieved with oral Metoprolol and cardizem 3. Hypothyroidism:? Continue some thyroid supplement. 4. Lumbar radiculopathy: at least 3-4 week durtion, Patient could could not tolerate steroids-mri reviewed by neuro:multilevel spondylitic disease with possible right L4-5 root compression, which could result in radicular type of pain: ?recommendation is conservative management with p.r.n. Tylenol 500 mg 3 times a day and PT OT consultation and advised to be staying active 5. Hypokalemia--d/t diarrhea, resolved with with replacement regimen Patient was evaluated by PT with recommendation for STR however she wants to go home and decision supported by her son. Final diagnoses: Ischemic colitis AFIB with RVR Hypokalemia Time Spent with Patient Time attestation: Total time spent providing and/or coordinating discharge services: Discharge coordination time: Greater than 30 minutes Quality: Stroke Does the patient have a stroke diagnosis?: No Physical Exam Vital Signs: Vital Signs: Last Vital Signs Temp 97.9 F 08/12/21 08:00 Pulse 102 H 08/12/21 08:11 Resp 20 08/12/21 08:00 BP 156/78 H 08/12/21 08:11 Pulse Ox 92 08/12/21 08:00 Body Mass Index 24.6 General: AO X 3, no acute distress Resp: CTA bilateral CVS: S1,S2, iregular irgula GI: +BS, NT, no distention Skin: No rash Neuro: motor grossly intact Psych: appropriate affect DS: Data Data Completed and Pending Labs on day of discharge: Laboratory Results - last 24 hr 08/12/21 07:57 Sodium 141 Potassium 3.5 D Chloride 106 Carbon Dioxide 26 Anion Gap 13 BUN 8 L Creatinine 0.59 Estim Creat Clear Calc 61.5 Estimated GFR > 60 Random Glucose 97 Calcium 8.5 Preliminary micro results at discharge 08/07/21 11:29 Blood Culture - Preliminary Blood - Venous No growth after 48 hours. 08/07/21 11:21 Blood Culture - Preliminary Blood - Venous No growth after 48 hours. Discharge Plan Discharge Anticipated Discharge Date/Time: 08/12/21 11:21 Patient Disposition: Home Health Service Discharge Diagnosis: ischemic colitis, AFIB with rvr Referrals: Pushpa Cuevas MD [Primary Care Provider] - 1 Week Discharge Medications: Continued diltiazem HCl 240 mg capsule,extended release 24hr 240 mg PO BID Qty: 180 RF: 1 metoprolol succinate 50 mg tablet extended release 24 hr 50 mg PO BID Qty: 180 RF: 2 sertraline 50 mg tablet 50 mg PO DAILY Qty: 90 RF: 1 levothyroxine [Levo-T] 25 mcg tablet 25 mcg PO DAILY Qty: 90 RF: 1 zolpidem [Ambien] 10 mg tablet 10 mg PO BEDTIME 10 Days Qty: 10 RF: 0 Eliquis 5 mg tablet 5 mg PO BID 90 Days Qty: 180 RF: 3 cholecalciferol (vitamin D3) 1,250 mcg (50,000 unit) capsule 1,250 mcg PO SA RF: 0 Discharge Orders: Discharge Order (Routine); Ordered 08/12/21 Ordered By: Kyler Manning Diet: advance to usual diet Activity on Discharge: As tolerated Stand Alone Forms: Patient Portal Discharge page Care Plan Goals: prevent rehospitalization Health Concerns: Ischemic colitis, afib with rvr Plan of Treatment: Continue taking all your usual medications, follow up with your Doctor in a week, call for appointment Assessment: as above
--- NOTE | 2021-08-12 11:40 | P.F2F_ITS ---
Service Date Service Date: 08/12/21 Reasons for Services Homebound: Leaving the home is medically contraindicated at this time without the asist of a device and/or another person due th the listed conditions above and below. Homebound supporting statement: homebound due to ischemic colitis causing generalized weakness, and difficulty moving around and therefore needing the assitance of another person Certification: Based on the above findings, I certify that this patient is confined to the home and needs intermittent retirement care, physical therapy and/or speech therapy, or continues to need occupational therapy. The patient is under my care, and I have initiated the establishment of the plan of care. The patient will be followed by a physician who will periodically review the plan of care.
--- NOTE | 2021-08-12 11:48 | MHC.CM.PN ---
Patient wants to return home, not STR/SNF. Patient has been medically cleared for dc to home today, with services. A referral was made to NA, who has been made aware of today's dc. Second IMM addressed with Patient and original has been given to her and a copy has been placed on the chart.
--- NOTE | 2021-08-12 11:55 | PM.PNCARD ---
Subjective Subjective Date of Service: 08/12/21 Principal diagnosis: Colitis, afib rvr, CHF Interval history: Cardiology follow up for Afib. Seen at 1100. Today she reports feeling well. Her abdominal symptoms have resolved. She ate regular food last piyush and this am. No longer having diarrhea. Breathing is comfortable. Has walked in room with walker and denies having sob. No chest pains, palpitation, dizziness. Feels some weakness but does not want to go to rehab. Wants to go home and is willing to have VNA services. Review of Systems Review of Systems as above Yes all other systems are reviewed and are negative Physical Exam Vital Signs: Last Vital Signs Temp 97.9 F 08/12/21 08:00 Pulse 102 H 08/12/21 08:11 Resp 20 08/12/21 08:00 BP 156/78 H 08/12/21 08:11 Pulse Ox 92 08/12/21 08:00 Body Mass Index 24.6 Const General: cooperative, no acute distress, alert and awake Orientation/consciousness: patient oriented x3 Neck Other: mildly elevated JVD Neck: Yes normal visual inspection Resp Other: faint rales in bases, improved from prior days assessments Effort & Inspection: normal respiratory effort, able to speak in complete sentences and not labored Auscultation: clear to auscultation bilaterally, no rhonchi and no wheezes Cardio Jugular venous distension: JVD present Palpation: normal PMI Rate: regular rate Rhythm: abnormal rhythm (irregularly irregular) Heart sounds: S1 normal heart sound present and S2 normal heart sound present Peripheral pulses: Peripheral pulses 2+ throughout GI Inspection: Yes normal to inspection Neuro General: patient oriented x3 Extrem General: Yes normal to inspection and No edema Results Labs and Meds Result diagrams: 08/11/21 06:06 08/12/21 07:57 Lab results: Laboratory Results - last 24 hr 08/12/21 07:57 Sodium 141 Potassium 3.5 D Chloride 106 Carbon Dioxide 26 Anion Gap 13 BUN 8 L Creatinine 0.59 Estim Creat Clear Calc 61.5 Estimated GFR > 60 Random Glucose 97 Calcium 8.5 Progress Note: A&P Assessment and plan (1) Atrial fibrillation with RVR: Status: Acute Assessment and Plan: Hx of chronic afib. Admitted with colitis and has afib RVR. Initially on Diltiazem drip and changed back to usual home Diltiazem and Metoprolol yesterday. Tele today shows afib with rates 80s- low 100s. She denies having palpitations or chest discomfort. Echo done yesterday shows EF 50-55%, biatrial enlargement, mod TR - no change from last echo. GI symptoms reported to be resolved. Can be discharged from a cardiology perspective. Continue current Diltiazem, Metoprolol for rate control.?Continue Eliquis for anticoagulation. We will arrange for outpt cardiology follow up. (2) Diastolic CHF: Status: Acute Assessment and Plan: Acute. 08/10 noted to have JVD and LL rales on exam. Was given 1 dose of IV Lasix and voided 1100 cc that day. Doing well at present. Denies having sob, PND, orthopnea. JVD only mildly elevated and rales improved. Did have hypokalemia yesterday, recieved supplement and K 3.5 today, Cr 0.59. Does not require further diuretics. Fluid overload may have been related to her afib RVR. Fall Risk Details Current Medications: Current Medications Generic Name Dose Route Start Last Admin Trade Name Freq PRN Reason Stop Dose Admin Acetaminophen 650 mg 08/09/21 08:00 08/12/21 08:11 Acetaminophen 325 Mg Tablet PO Not Given Q6H [facility] Apixaban 5 mg 08/08/21 22:00 08/12/21 08:11 Apixaban 5 Mg Tablet PO 5 mg Q12H SHARLENE Administration Diltiazem HCl 240 mg 08/11/21 13:15 08/12/21 08:11 Diltiazem Hcl Cd 240 Mg Cap.Er.Deg PO 240 mg BID SHARLENE Administration Protocol Levothyroxine Sodium 25 mcg 08/08/21 09:00 08/12/21 08:11 Levothyroxine Sodium 25 Mcg Tablet PO 25 mcg DAILY SHARLENE Administration Metoprolol Succinate 50 mg 08/11/21 21:00 08/12/21 08:11 Metoprolol Succinate Er 50 Mg Tab.Er.24h PO 50 mg BID SHARLENE Administration Protocol Morphine Sulfate 2 mg 08/09/21 10:46 Morphine Sulfate 2 Mg/Ml Cartridge IVPUSH Q3H PRN Pain, Mild (Pain Scale 1-3) Protocol Non-Formulary Medication 1,250 mcg 08/08/21 15:09 Cholecalciferol (Vitamin D3) PO [facility] Pharmacy Consult 1 each 08/07/21 11:04 Consult Rx Perform Med Rec MISCELLANE ONCE PRN Consult order Sertraline HCl 50 mg 08/08/21 09:00 08/12/21 08:11 Sertraline Hcl 50 Mg Tablet PO 50 mg DAILY SHARLENE Administration Sodium Chloride 3 ml 08/07/21 16:00 08/12/21 08:11 0.9 % Sodium Chloride Flush 3 Ml Syringe IVFLUSH 3 ml QSHIFT SHARLENE Administration Zolpidem Tartrate 10 mg 08/07/21 21:00 08/11/21 20:55 Zolpidem Tartrate 5 Mg Tablet PO 10 mg BEDTIME SHARLENE Administration Time Spent With Patient Time: Total time spent is greater than 50% in coordination of care (as documented) at patient's floor/unit and/or counseling patient: Time with patient: 15 - 24 minutes Progress Note: Quality Stroke Does the patient have a stroke diagnosis?: No Procedures Date of Service Date of Service: 08/12/21
[2021-08-12 12:00] VITALS: BP 130/78; PULSE 76; RESP 18; TEMP 36.7; O2SAT 95
== END 2021-08-12 15:55 | disposition home health service (06) | DRG 393 ==
LOC: HO.ED 13:42 → HO.EDOVER 16:11 → HO.S3 08-08 10:52 → HO.IMC 08-09 16:41
PROVIDERS: Internal Medicine; Admitting Provider Internal Medicine; Emergency Provider Emergency Medicine; PCP Internal Medicine; Visit Provider Internal Medicine
DX: K55.039 Acute (reversible) ischemia of large intestine, extent unspecified (principal); I50.31 Acute diastolic (congestive) heart failure; I48.20 Chronic atrial fibrillation, unspecified; D72.829 Elevated white blood cell count, unspecified; M54.16 Radiculopathy, lumbar region; E03.9 Hypothyroidism, unspecified; Z20.822 Contact with and (suspected) exposure to COVID-19; Z87.891 Personal history of nicotine dependence; Z79.01 Long term (current) use of anticoagulants; Z79.890 Hormone replacement therapy; Z79.899 Other long term (current) drug therapy; Z66 Do not resuscitate
CPT/HCPCS: 36415; 71045; 72158; 74177; 80048; 80076; 81001; 81003; 82272; 83605; 83690; 83735; 83880; 84484; 85014; 85018; 85025; 85027; 85610; 85730; 86850; 86900; 86901; 87040; 87045; 87046; 87493; 87635; 89055; 93005; 93306; 96361; 96365; 96375; 97162; 97166; 97535; 99285; 99291; A9585; J1940; J1956; J2270; J2405; Q9967

== ENCOUNTER → 2021-09-01 15:14 | Outpatient (BNVA) | payer MEDICARE, OTHER, SELFPAY | PROVIDERS: PCP Internal Medicine; Referring Provider Internal Medicine; Visit Provider Nurse Practitioner Family | DX: I48.91 Unspecified atrial fibrillation (principal); I44.7 Left bundle-branch block, unspecified; F32.A Depression, unspecified; Z79.01 Long term (current) use of anticoagulants | CPT/HCPCS: 99212 ==

== ENCOUNTER 2021-09-08 08:53 | Outpatient (REF) | payer MEDICARE, OTHER, SELFPAY ==
[2021-09-08 11:35] LABS: MANUAL DIFF FLAG NO
[2021-09-08 11:42] LABS: Basophils Percent Auto 0.4 % (0-2); Eosinophils Absolute Auto 0.1 X10*3/uL (0.0-0.4); Eosinophils Percent Auto 1.6 % (0-4); Hematocrit 40.4 % (37-47); Hemoglobin 12.5 g/dl (12.0-16.0); Imm Gran Abs Auto 0.04 X10*3/uL (0.00-0.03); Imm Gran Pct Auto 0.5 % (0.0-0.4); Lymphocytes Percent Auto 12.7 % (20-40); Mean Corpuscular HGB Conc 30.9 g/dl (31.0-35.0); Mean Corpuscular Hemoglobin 28.7 pg (27.0-33.0); Mean Corpuscular Volume 92.7 fL (80-98); Mean Platelet Volume 11.2 fL (9.4-12.3); Monocytes Absolute Auto 0.6 X10*3/uL (0.1-1.2); Monocytes Percent Auto 7.8 % (2-11); Neutrophils Absolute Auto 5.8 X10*3/uL (2.0-8.3); Platelet Count 148 X10*3/uL (160-400); Red Blood Count 4.36 X10*6/uL (4.20-5.50); Red Cell Distribution Width 14.1 % (11.0-16.0); White Blood Count 7.6 X10*3/uL (4.8-10.8)
[2021-09-08 12:00] LABS: Anion Gap 12 (12-20); Blood Urea Nitrogen 16 mg/dL (9-16); Calcium 9.5 mg/dL (8.4-10.2); Carbon Dioxide 28 mmol/L (22-29); Chloride 105 mmol/L (96-108); Estimated Glomerular Filt Rate > 60; Glucose Fasting 99 mg/dL (60-99); Iron 74 mcg/dL (30-160); Percent Iron Saturation 18 % (15-50); Sodium 141 mmol/L (135-145); Total Iron Binding Capacity 406 mcg/dL (228-428); Unsaturated Iron Binding 332 ug/dL
[2021-09-08 12:09] LABS: Free T4 (Free Thyroxine) 0.94 ng/dL (0.71-1.85); Thyroid Stimulating Hormone 0.43 uIU/mL (0.32-4.0); Vitamin D 25-OH Total 76.5 ng/mL (>30)
[2021-09-08 12:31] LABS: Folate 7.5 ng/mL (> or = 4.0); Vitamin B12 229 pg/mL (200-900)
== END 2021-09-08 08:54 | disposition home or self-care (01) ==
LOC: HO.HMGCLDS 08:53
PROVIDERS: PCP Internal Medicine; Visit Provider Internal Medicine
DX: I10 Essential (primary) hypertension (principal); E03.9 Hypothyroidism, unspecified; F41.9 Anxiety disorder, unspecified; G47.00 Insomnia, unspecified; R53.83 Other fatigue; Z78.0 Asymptomatic menopausal state; Z79.01 Long term (current) use of anticoagulants
CPT/HCPCS: 36415; 80048; 82306; 82607; 82746; 83540; 84439; 84443; 85025

== ENCOUNTER 2021-10-26 16:43 | Emergency (ER) | payer MEDICARE, OTHER, SELFPAY ==
--- NOTE | ~2021-10-26 | XR_ITS ---
EXAMINATION: XR CHEST CLINICAL INFORMATION: Dyspnea and swelling COMPARISON: 08/07/2021 TECHNIQUE: Frontal view of the chest was obtained. FINDINGS: The heart is enlarged. There remains upper zone redistribution indicative of mild pulmonary vascular congestion. Previously seen left lower lobe infiltrate/effusion has cleared. XR/XR chest 1V IMPRESSION: Cardiomegaly and pulmonary vascular congestion/mild CHF
--- NOTE | ~2021-10-26 | US_ITS ---
EXAMINATION: US VENOUS ULTRASOUND WITH DOPPLER LOWER EXTREMITY, BILATERAL CLINICAL INFORMATION: Pain, swelling COMPARISON: None TECHNIQUE: Ultrasound of the deep veins is performed from the hip to the calf with compression sonography and color and pulse Doppler assessment. Spectral analysis with color-flow imaging is performed. FINDINGS: RIGHT: There is normal venous compression and respiratory variation and augmented flow. The visualized common femoral vein, superficial femoral vein, profunda femoral vein, popliteal vein, and the trifurcation region shows no evidence of deep venous thrombosis. There is no significant popliteal fossa cyst. There is edema in the subcutaneous fat of the calf. LEFT: There is normal venous compression and respiratory variation and augmented flow. The visualized common femoral vein, superficial femoral vein, profunda femoral vein, popliteal vein, and the trifurcation region shows no evidence of deep venous thrombosis. There is no significant popliteal fossa cyst. If the patient's symptoms persist, followup ultrasound in 5 days 7 days might be of value to exclude proximal propagation from a non-visualized calf vein. US/US venous duplex LE BI IMPRESSION: No DVT demonstrated in the bilateral lower extremity.
[2021-10-26 16:51] VITALS: BP 140/90; BP 157/76; PULSE 115; PULSE 99; RESP 18; TEMP 36.8; O2SAT 95; BMI 25.3
--- NOTE | 2021-10-26 16:54 | ECG_ITS ---
Test Reason : LEG SWELLING Blood Pressure : / mmHG Vent. Rate : 099 BPM Atrial Rate : 000 BPM P-R Int : 000 ms QRS Dur : 112 ms QT Int : 374 ms P-R-T Axes : 000 -54 082 degrees QTc Int : 479 ms Atrial fibrillation Left anterior fascicular block Minimal voltage criteria for LVH, may be normal variant ( [place] product ) Abnormal ECG When compared with ECG of 07-AUG-2021 13:16, T wave amplitude has increased in Lateral leads Referred By: Ela Aquino Electronically Signed By:RENETTA ALANIS MD
--- NOTE | 2021-10-26 16:55 | ED_ITS ---
HPI - Extremity Problem General Chief complaint: Weakness Stated complaint: weakness ankle edema Time Seen by Provider: 10/26/21 16:47 Source: patient and old records reviewed Mode of arrival: EMS Limitations: no limitations History of Present Illness MD Complaint: extremity swelling Onset (ago): week(s) (2) Pain Consistency: constant Location: lower extremity (bilateral feet and ankles) Quality: aching Radiation: proximal Relieving factors: nothing Exacerbating factors: walking and palpation Associated symptoms: shortness of breath Context: other (hx of afib on eliquis takes diltiazem for rate control does not take diuretics) Related Data Home Medications Medication Instructions Recorded Confirmed cholecalciferol (vitamin D3) 1,250 1,250 mcg PO SA 08/07/21 09/02/21 mcg (50,000 unit) capsule Previous Rx's Medication Instructions Recorded metoprolol succinate 50 mg 50 mg PO BID #180 tab 03/20/21 tablet,extended release 24 hr levothyroxine 25 mcg tablet 25 mcg PO DAILY #90 tab 07/27/21 (Levo-T) apixaban 5 mg tablet (Eliquis) 5 mg PO BID 90 Days #180 tab 08/07/21 sertraline 100 mg tablet 100 mg PO DAILY #30 tab 08/20/21 zolpidem 5 mg tablet 5 mg PO BEDTIME PRN #30 tab 09/03/21 diltiazem HCl 240 mg 240 mg PO BID #180 cap 10/14/21 capsule,extended release 24 hr furosemide 40 mg tablet (Lasix) 40 mg PO DAILY #7 tab 10/26/21 Allergies Allergy/AdvReac Type Severity Reaction Status Date / Time amoxicillin [From AUGMENTIN] Allergy Intermediate RASH Verified 08/07/21 11:06 gabapentin [GABAPENTIN] Allergy Unknown UNKNOWN Verified 08/07/21 11:06 Review of Systems Review of Systems: Constitutional : No Fever, No Chills ENT/Mouth : No sore throat, No Rhinorrhea, No Swallowing Difficulty Eyes: No Eye Pain, No Swelling, No Redness Cardiovascular : No Chest Pain, positive SOB, No Orthopnea, positive Edema Respiratory : No Cough, No Sputum, No Wheezing, positive dyspnea Gastrointestinal : No Nausea, No Vomiting, No Diarrhea, No abdominal Pain, No Hematochezia, No Melena Genitourinary : No Dysuria, No Urinary Frequency, No Hematuria Musculoskeletal : No joint pain, No Myalgias Skin : No Skin Lesions, No rash Neuro : No Weakness, No Numbness, No Dizziness, No Headache Psych : No Anxiety/Panic, No Depression Heme/Lymph: No Bruising, No Lymphadenopathy Endocrine : No Polyuria, No Polydipsia All other systems reviewed and are negative [facility] Past Medical History Attestation statement: The following information was validated with the patient. Medical History Acquired deformity of toenail Acquired hypothyroidism Anxiety disorder Atrial fibrillation Chronic anticoagulation Degenerative disc disease, lumbar Diastolic CHF HTN (hypertension) Insomnia Left bundle branch block Legionnaires' disease Lumbar disc disease with radiculopathy Lumbar radiculopathy Menopause Skin lesion of neck Surgical History Previous back surgery Family History Family History Brother Leukemia Social History Social History Household Members: None Housing: Apartment Housing Other:: independent living Do you presently have visiting nurse or other home services: No Alcohol intake: current Alcohol intake frequency: does not drink Patient Tobacco Use Status: Former Tobacco user Tobacco use type: Cigarette Cigarettes Per Day: 10 e-Cigarette/Vaping Use: Never Used Second Hand Smoke Exposure: No Use of substances other than those prescribed or required for medical reasons: No Advance Directives: No Advance Directives Information Provided: Yes service: No Current occupational status: retired Physical Exam Vital Signs: Vital Signs: Last Vital Signs Temp 98.2 F 10/26/21 16:51 Pulse 97 10/26/21 18:22 Resp 20 10/26/21 18:22 BP 154/85 H 10/26/21 18:22 Pulse Ox 95 10/26/21 18:22 Body Mass Index 25.3 Appearance: Alert. Oriented X3. No acute distress. Eyes: Pupils equal, round and reactive to light. ENT: Pharynx normal. Neck: Normal inspection. Neck supple. CVS: tachycardic and irregular heart rate and rhythm. Pulses normal. Respiratory: No respiratory distress. Breath sounds diminished at the bases Abdomen: Soft and nontender. Skin: Skin warm and dry. Normal skin color. Normal skin turgor. Extremities: pitting 1+ lower extremity edema feet and ankle. mild calf ttp Neuro: Oriented X 3. No motor deficit. No sensory deficit. Course Course Course Narrative: mild CHF, the patient does not want to stay she is no resp distress can likely start on lasix 40mg daily for the next week and have her follow up with PCP this week. MDM - Extremity (Nontraumatic) MDM Narrative Medical decision making narrative: 86 yo female with hx of afib on eliquis and dilt, colitis, anxiety, hypothyroidism comes in with 2 weeks of worsening bilateral pedal edema and now notes some mild dyspnea over the past two days she is not on diuretics she reports compliance with her medications. At this time she is tachycardic ? CHF from rapid afib will obtain labs, EKG, CXR, DVT study. She is not on diuretics at home may need IV dose. Dispo per results and findings. She has no chest pain. Lab Data Result diagrams: 10/26/21 18:19 10/26/21 18:19 Labs: Lab Results 10/26/21 10/26/21 10/26/21 Range/Units 18:19 18:19 18:19 WBC 6.6 (4.8-10.8) X10*3/uL RBC 4.30 (4.20-5.50) X10*6/uL Hgb 12.8 (12.0-16.0) g/dl Hct 41.0 (37.0-47.0) % MCV 95.3 (80.0-98.0) fL MCH 29.8 (27.0-33.0) pg MCHC 31.2 (31.0-35.0) g/dl RDW 13.6 (11.0-16.0) % Plt Count 137 L (160-400) X10*3/uL MPV 10.7 (9.4-12.3) fL Immature Gran % (Auto) 0.3 (0.0-0.4) % Neut % (Auto) 66.5 (45-73) % Lymph % (Auto) 22.8 (20-40) % Lyman % (Auto) 7.9 (2-11) % Eos % (Auto) 2.0 (0-4) % Baso % (Auto) 0.5 (0-2) % Lymph # (Auto) 1.5 (1.2-4.9) X10*3/uL Lyman # (Auto) 0.5 (0.1-1.2) X10*3/uL Eos # (Auto) 0.1 (0.0-0.4) X10*3/uL Baso # (Auto) 0.0 (0.0-0.2) X10*3/uL Abs Immat Gran (auto) 0.02 (0.00-0.03) X10*3/uL Absolute Neuts (auto) 4.4 (2.0-8.3) x10*3/uL Absolute Nucleated RBC 0.000 (0.0-0.012) X10*3/uL Nucleated RBC % (auto) 0.0 (0.0-0.2) /100WBC Smear Tech's Comments VERIFIED Sodium 141 (135-145) mmol/L Potassium 4.2 (3.3-5.1) mmol/L Chloride 109 H (96-108) mmol/L Carbon Dioxide 24 (22-29) mmol/L Anion Gap 12 (12-20) BUN 22 H (9-16) mg/dL Creatinine 0.81 (0.5-1.4) mg/dL Estim Creat Clear Calc 48.6 Estimated GFR > 60 Random Glucose 100 (60-115) mg/dL Calcium 9.3 (8.4-10.2) mg/dL Magnesium 1.8 (1.6-2.6) mg/dL Total Bilirubin 1.0 (0.0-1.0) mg/dL Direct Bilirubin 0.4 (0.0-0.5) mg/dL AST 21 D (5-31) U/L ALT 13 (0-31) U/L Alkaline Phosphatase 126 H D (39-117) U/L Troponin I High Sens 8.7 (<3.5-17.0) ng/L B-Natriuretic Peptide 296 H (<100) pg/mL Total Protein 6.7 (6.5-8.0) g/dL Albumin 4.3 (3.5-5.0) g/dL ECG Data Attestation EKG: I personally reviewed and interpreted this ECG as follows: ECG interpretation date: 10/26/21 ECG interpretation time: 18:41 Interpretation: Rate: 99 Rhythm: afib [place]: left , LVH Normal QRS complex. ST T wave : nonspecific , no BOZE[place] qTC: normal prior studies: no acute ischemia no sig change from prior The study has been interpreted contemporaneously by me. . Discharge Plan Discharge Clinical Impression: CHF (congestive heart failure) Qualifiers: Heart failure type: unspecified Heart failure chronicity: acute Qualified Code(s): I50.9 - Heart failure, unspecified Patient Disposition: Home, Self-Care Instructions: Heart Failure (ED) Additional Instructions: return to ED for any worsening symptoms or concerns PLEASE SEE YOUR DOCTOR THIS WEEK SOON POSSIBLE YOUR KIDNEY FUNCTION NEEDS TO BE MONITORED Prescriptions: New furosemide [Lasix] 40 mg tablet 40 mg PO DAILY Qty: 7 RF: 0 No Action metoprolol succinate 50 mg tablet extended release 24 hr 50 mg PO BID Qty: 180 RF: 2 levothyroxine [Levo-T] 25 mcg tablet 25 mcg PO DAILY Qty: 90 RF: 1 Eliquis 5 mg tablet 5 mg PO BID 90 Days Qty: 180 RF: 3 sertraline 100 mg tablet 100 mg PO DAILY Qty: 30 RF: 1 diltiazem HCl 240 mg capsule,extended release 24hr 240 mg PO BID Qty: 180 RF: 3 cholecalciferol (vitamin D3) 1,250 mcg (50,000 unit) capsule 1,250 mcg PO SA RF: 0 zolpidem 5 mg tablet 5 mg PO BEDTIME PRN (Reason: sleep) Qty: 30 RF: 0 Referrals: Physician,Unknown J [Primary Care Provider] - 2 days
[2021-10-26 18:22] VITALS: BP 154/85; PULSE 97; RESP 20; O2SAT 95
[2021-10-26 18:28] LABS: Basophils Percent Auto 0.5 % (0-2); Imm Gran Abs Auto 0.02 X10*3/uL (0.00-0.03); Imm Gran Pct Auto 0.3 % (0.0-0.4); MANUAL DIFF FLAG SCAN; PLT CLUMP 1; SCAN SMEAR FLAG 1
[2021-10-26 18:29] LABS: Eosinophils Absolute Auto 0.1 X10*3/uL (0.0-0.4); Hemoglobin 12.8 g/dl (12.0-16.0); Lymphocytes Absolute Auto 1.5 X10*3/uL (1.2-4.9); Lymphocytes Percent Auto 22.8 % (20-40); Mean Corpuscular HGB Conc 31.2 g/dl (31.0-35.0); Mean Corpuscular Hemoglobin 29.8 pg (27.0-33.0); Mean Corpuscular Volume 95.3 fL (80.0-98.0); Mean Platelet Volume 10.7 fL (9.4-12.3); Monocytes Absolute Auto 0.5 X10*3/uL (0.1-1.2); Monocytes Percent Auto 7.9 % (2-11); Neutrophils Absolute Auto 4.4 x10*3/uL (2.0-8.3); Neutrophils Percent Auto 66.5 % (45-73); Red Cell Distribution Width 13.6 % (11.0-16.0); White Blood Count 6.6 X10*3/uL (4.8-10.8)
[2021-10-26 18:42] LABS: Alanine Aminotransferase 13 U/L (0-31); Albumin Level 4.3 g/dL (3.5-5.0); Alkaline Phosphatase 126 U/L (39-117); Anion Gap 12 (12-20); Aspartate Amino Transferase 21 U/L (5-31); Bilirubin Direct 0.4 mg/dL (0.0-0.5); Blood Urea Nitrogen 22 mg/dL (9-16); Calcium 9.3 mg/dL (8.4-10.2); Carbon Dioxide 24 mmol/L (22-29); Chloride 109 mmol/L (96-108); Creatinine Clr Calc Pharmacy 48.6; Estimated Glomerular Filt Rate > 60; Glucose Random 100 mg/dL (60-115); Magnesium 1.8 mg/dL (1.6-2.6); Potassium 4.2 mmol/L (3.3-5.1); Sodium 141 mmol/L (135-145); Total Protein 6.7 g/dL (6.5-8.0)
[2021-10-26 18:47] LABS: B Type Natriuretic Peptide 296 pg/mL (<100); Troponin-I High Sensitivity 8.7 ng/L (<3.5-17.0)
[2021-10-26 18:51] LABS: Platelet Count 137 X10*3/uL (160-400); SLIDE REVIEW VERIFIED
[2021-10-26] MEDS: Furosemide 40 MG/4 ML VIAL IVPUSH (19:07)
== END 2021-10-26 19:37 | disposition home or self-care (01) ==
PROVIDERS: Emergency Provider Emergency Medicine
DX: I50.9 Heart failure, unspecified (principal); R60.0 Localized edema; R06.02 Shortness of breath; R00.2 Palpitations; F17.210 Nicotine dependence, cigarettes, uncomplicated; Z71.6 Tobacco abuse counseling; Z79.899 Other long term (current) drug therapy
CPT/HCPCS: 36415; 71045; 80048; 80076; 83735; 83880; 84484; 85025; 93005; 93970; 96374; 99284; J1940

== ENCOUNTER 2021-11-02 09:21 | Outpatient (REF) | payer MEDICARE, OTHER, SELFPAY ==
[2021-11-02 12:32] LABS: Blood Urea Nitrogen 19 mg/dL (9-16); Estimated Glomerular Filt Rate > 60
== END 2021-11-02 09:22 | disposition home or self-care (01) ==
LOC: HO.HMGCLDS 09:21
PROVIDERS: PCP Internal Medicine; Visit Provider Internal Medicine
DX: I10 Essential (primary) hypertension (principal); M54.16 Radiculopathy, lumbar region
CPT/HCPCS: 36415; 82565; 84520

== ENCOUNTER → 2021-12-10 12:52 | Outpatient (BNVA) | payer MEDICARE, OTHER, SELFPAY | PROVIDERS: PCP Internal Medicine; Referring Provider Internal Medicine; Visit Provider Internal Medicine Cardiovascular Disease | DX: Z13.89 Encounter for screening for other disorder (principal) | CPT/HCPCS: 99212 ==

== ENCOUNTER 2021-12-10 14:00 | Emergency (ER) | payer MEDICARE, OTHER, SELFPAY ==
[2021-12-10 15:44] VITALS: BP 149/78; PULSE 93; RESP 16; TEMP 36.6; O2SAT 95; BMI 25.0
[2021-12-10 15:56] VITALS: BP 149/78; PULSE 93; RESP 16; TEMP 36.6; O2SAT 95
--- NOTE | 2021-12-10 16:01 | ED.PSYCH ---
HPI - Psych General Chief Complaint: Psychiatric Symptoms Stated Complaint: SI Time Seen by Provider: 12/10/21 15:26 Source: patient Mode of arrival: wheelchair Limitations: no limitations History of Present Illness HPI Narrative: Earlier this morning, patient had a Cardiology consult with Dr. Hunt, patient admitted that she was feeling depressed and suicidal. Dr. Hunt section 12 her and patient was brought to the emergency room. Patient states that she feels very depressed, dislikes the assisted living facility where she lives, patient states that her life has changed too much, lost many people in her family. Patient states that she feels suicidal, she wants to stop taking all her medications and I. Per Dr. Hunt, patient already started being noncompliant with her medications. Patient states that she would not actively kill herself, states she is Buddhism and her confucianist prohibits her from killing herself. Related Data Previous Rx's Medication Instructions Recorded metoprolol succinate 50 mg 50 mg PO BID #180 tab 03/20/21 tablet,extended release 24 hr levothyroxine 25 mcg tablet 25 mcg PO DAILY #90 tab 07/27/21 (Levo-T) apixaban 5 mg tablet (Eliquis) 5 mg PO BID 90 Days #180 tab 08/07/21 zolpidem 5 mg tablet 5 mg PO BEDTIME PRN #30 tab 09/03/21 diltiazem HCl 240 mg 240 mg PO BID #180 cap 10/14/21 capsule,extended release 24 hr furosemide 20 mg tablet 20 mg PO DAILY #30 tab 10/29/21 Allergies Allergy/AdvReac Type Severity Reaction Status Date / Time amoxicillin [From AUGMENTIN] Allergy Intermediate RASH Verified 11/15/21 23:06 gabapentin [GABAPENTIN] Allergy Unknown UNKNOWN Verified 11/15/21 23:06 Review of Systems Review of Systems: Constitutional : No Weight loss, No Fever, No Chills, No Night Sweats, No Fatigue, No Malaise ENT/Mouth : No Hearing loss, No Ear Pain, No Nasal Congestion, No Sinus Pain, No Hoarseness, No sore throat, No Rhinorrhea, No Swallowing Difficulty Eyes: No Eye Pain, No Swelling, No Redness, No Foreign Body, No Discharge, No Vision Changes Cardiovascular : No Chest Pain, No SOB, No Dyspnea on Exertion, No Orthopnea, No Edema, No Palpitations Respiratory : No Cough, No Sputum, No Wheezing, No Smoke Exposure, No Dyspnea Gastrointestinal : No Nausea, No Vomiting, No Diarrhea, No Constipation, No abdominal Pain, No Hematochezia, No Melena Genitourinary : no irregular bleeding, No Dysuria, No Urinary Frequency, No Hematuria, No Urinary Incontinence, No Urgency, No Flank Pain, No Urinary Flow Changes, No Hesitancy Musculoskeletal : No joint pain, No Myalgias, No Joint Swelling Skin : No Skin Lesions, No rash Neuro : No Weakness, No Numbness, No Paresthesias, No Loss of Consciousness, No Dizziness, No Headache Psych : Complaining of depression, suicidal ideation, dislikes her current living situation at the assisted living facility Heme/Lymph: No Bruising, No Bleeding,No Lymphadenopathy Endocrine : No Polyuria, No Polydipsia, No Temperature Intolerance PMF Past Medical History Medical History Acquired deformity of toenail Acquired hypothyroidism Anxiety disorder Atrial fibrillation Chronic anticoagulation Degenerative disc disease, lumbar Diastolic CHF HTN (hypertension) Insomnia Left bundle branch block Legionnaires' disease Lumbar disc disease with radiculopathy Lumbar radiculopathy Menopause Skin lesion of neck Surgical History Previous back surgery Family History Family History Brother Leukemia Social History Social History Household Members: None Housing: Apartment Housing Other:: independent living Do you presently have visiting nurse or other home services: No Alcohol intake: current Alcohol intake frequency: holidays/special occasions only Patient Tobacco Use Status: Former Tobacco user Tobacco use type: Cigarette Cigarettes Per Day: 10 e-Cigarette/Vaping Use: Never Used Second Hand Smoke Exposure: No Use of substances other than those prescribed or required for medical reasons: No Advance Directives: Yes Advance Directives Information Provided: No Advance Directives on File: No service: No Current occupational status: retired Physical Exam Vital Signs: Vital Signs: Last Vital Signs Temp 97.9 F 12/10/21 15:56 Pulse 93 12/10/21 15:56 Resp 16 12/10/21 15:56 BP 149/78 H 12/10/21 15:56 Pulse Ox 95 12/10/21 15:56 BMI result Body Mass Index 25.0 Const: Other: Appearance: Alert. Oriented X3. No acute distress. Eyes: Pupils equal, round and reactive to light. ENT: Pharynx normal. Neck: Normal inspection. Neck supple. No lymph nodes noted. No crepitus CVS: Normal heart rate and rhythm. Pulses normal. Normal S1 and S2 Respiratory: No respiratory distress. Breath sounds normal. No Wheezing. No rales Abdomen: Soft and nontender. No rigidity. No distention. good BS x4 Skin: Skin warm and dry. Normal skin color. Normal skin turgor. Extremities: No lower extremity edema. No Lacerations. No Rash Neuro: Oriented X 3. No motor deficit. No sensory deficit. Moving all extermities. No slurred speech. Cranial nerves 2-12 grossly intact Psych: Tearful, speaking full sentences, able to have a coherent conversation. Course Course Course Narrative: [facility] network requesting full blood work done prior to [facility] evaluation. Labs pending. Sign-out given to Dr. Carbajal Discharge Plan Discharge Clinical Impression: Depression Patient Disposition: Still a Patient Prescriptions: No Action metoprolol succinate 50 mg tablet extended release 24 hr 50 mg PO BID Qty: 180 RF: 2 levothyroxine [Levo-T] 25 mcg tablet 25 mcg PO DAILY Qty: 90 RF: 1 Eliquis 5 mg tablet 5 mg PO BID 90 Days Qty: 180 RF: 3 diltiazem HCl 240 mg capsule,extended release 24hr 240 mg PO BID Qty: 180 RF: 3 zolpidem 5 mg tablet 5 mg PO BEDTIME PRN (Reason: sleep) Qty: 30 RF: 0 furosemide 20 mg tablet 20 mg PO DAILY Qty: 30 RF: 0
--- NOTE | 2021-12-10 16:05 | MHC.CM.ED ---
Addendum entered by Trang Culp 12/10/21 16:10: Tamra can be reached via telephone at [phone]. Original Note: Patient came to the ER under a section 12 from cardiology due to SI. Per Dr Max, patient is not happy about where she lives. T/W spoke with Tamra at [facility]. Patient has been there since 05/11/21. Patient has been moved to multiple assisted living facilities because she didn't like any of them. Patient wants to be able to live alone and independently but there is not feasible. Patient and her son were very close until about 2 months ago. Patient started telling her son that she doesn't like living at the assisted living facility. Son felt the [facility] is providing more than appropriate care and has no intentions of moving patient again. Patient and son haven't spoken since then. Tamra states patient will have episodes about once a month, where she states that she doesn't like it there. Staff will address any issues. Patient ultimately says Nothing will help make me happy. I'm a bitch. Per Tamra, patient was on quarantine due to Covid until [address] Max aware. Continue to monitor for d/c needs.
[2021-12-10 16:56] LABS: MANUAL DIFF FLAG NO
[2021-12-10 16:58] LABS: Basophils Percent Auto 0.3 % (0-2); Eosinophils Absolute Auto 0.1 X10*3/uL (0.0-0.4); Eosinophils Percent Auto 1.7 % (0-4); Hematocrit 39.9 % (37.0-47.0); Hemoglobin 12.6 g/dl (12.0-16.0); Imm Gran Abs Auto 0.01 X10*3/uL (0.00-0.03); Imm Gran Pct Auto 0.2 % (0.0-0.4); Lymphocytes Absolute Auto 1.4 X10*3/uL (1.2-4.9); Lymphocytes Percent Auto 21.8 % (20-40); Mean Corpuscular HGB Conc 31.6 g/dl (31.0-35.0); Mean Corpuscular Hemoglobin 29.2 pg (27.0-33.0); Mean Corpuscular Volume 92.4 fL (80.0-98.0); Mean Platelet Volume 9.9 fL (9.4-12.3); Monocytes Absolute Auto 0.4 X10*3/uL (0.1-1.2); Monocytes Percent Auto 6.2 % (2-11); Neutrophils Absolute Auto 4.5 x10*3/uL (2.0-8.3); Neutrophils Percent Auto 69.8 % (45-73); Platelet Count 160 X10*3/uL (160-400); Red Blood Count 4.32 X10*6/uL (4.20-5.50); Red Cell Distribution Width 12.9 % (11.0-16.0); White Blood Count 6.5 X10*3/uL (4.8-10.8)
[2021-12-10 17:09] LABS: Appearance Urine CLEAR; Color Urine YELLOW; Glucose Urine UA NEG (NEG); Leukocyte Esterase Urine 1+ (NEG); Nitrite Urine NEG (NEG); Specific Gravity - Urine 1.025 (1.005-1.025); UACC Culture Trigger YES; Urine Blood TRACE (NEG); Urine Ketones NEG (NEG); Urine Protein NEG (NEG-TRACE)
[2021-12-10 17:15] LABS: COVID-19 Test Negative (Negative)
[2021-12-10 17:18] LABS: Ethanol < 10 mg/dL
[2021-12-10 17:19] LABS: Alanine Aminotransferase 9 U/L (0-31); Albumin Level 4.3 g/dL (3.5-5.0); Alkaline Phosphatase 123 U/L (39-117); Anion Gap 10 (12-20); Aspartate Amino Transferase 18 U/L (5-31); Bilirubin Direct 0.3 mg/dL (0.0-0.5); Bilirubin Total 0.9 mg/dL (0.0-1.0); Blood Urea Nitrogen 19 mg/dL (9-16); Calcium 9.7 mg/dL (8.4-10.2); Carbon Dioxide 30 mmol/L (22-29); Chloride 108 mmol/L (96-108); Creatinine Clr Calc Pharmacy 48.5; Estimated Glomerular Filt Rate > 60; Glucose Random 101 mg/dL (60-115); Potassium 4.1 mmol/L (3.3-5.1); Sodium 144 mmol/L (135-145); Total Protein 7.1 g/dL (6.5-8.0)
[2021-12-10 17:22] LABS: Amphetamine Screen Urine Not Detected (Not Detect); Barbiturates, Urine Not Detected (Not Detect); Benzodiazepines Screen Urine Not Detected (Not Detect); Cannabinoid Screen Urine Not Detected (Not Detect); Cocaine Screen Urine Not Detected (Not Detect); Fentanyl, urine Not Detected (Not Detect); Opiate Screen Urine Not Detected (Not Detect); Phencyclidine Screen Urine Not Detected (Not Detect)
[2021-12-10 17:31] LABS: RBC Urine 0-2 /HPF (0); Squamous Epithelial Cell Urine TRACE /LPF
[2021-12-10 17:32] LABS: Bacteria Urine TRACE /LPF; Mucus Urine TRACE /LPF
[2021-12-10 17:38] VITALS: BP 160/91; PULSE 102; RESP 15; TEMP 36.7; O2SAT 96
[2021-12-10 17:41] LABS: TSH reflex Free T4 0.45 uIU/mL (0.32-4.0)
--- NOTE | 2021-12-10 20:50 | MHC.CARE ---
CARE TEAM met with pt in 2 due to arriving via ambulance from her primary care doctor after expressing suicidal ideation with no specific plan or intent. She reported she moved into independent living in May 2021 and does not like the environment. She explained she fell in October 2021 and hurt her knee resulting in her son picking her up. She disclosed she has not spoken to her son since then. She stated all I do is cry . She reported she tapered herself off Sertraline due to having hot flashes and nightmares; and at times reported having suicidal thoughts. She however denied plan or intent as she stated I am confucianism. I don't believe in it . She disclosed she has an appointment on 12/15/21 with primary care doctor and is comfortable in speaking to him about medications. According to staff at [facility] , there are no safety concerns and pt is able to return to the home. Pt was discharged with community resources and will be followed up by CARE TEAM.
--- NOTE | 2021-12-11 12:28 | MHC.CARE ---
CARE Team conducts a follow up call with this patient.? Pt stated that she has returned to [facility] and is ?Confused? as the facility and its residents are on lockdown again after having just come off lockdown ?Last Tuesday?.? She stated that lockdown was not difficult for her and she doesn?t anticipate this new lockdown as being difficult either. She stated she still feels depressed, ?Nothing has changed.?? She did state that she feels like she did ?Yesterday? and her depression hasn?t changed.? She stated it has not gotten worse though.? She stated she has had thoughts of stopping her medication altogether and her ?Body would go to pot? but she gets scared and takes her medications.? She has no plan or intent to complete suicide, citing her judaism beliefs as the reason why. She stated that she is 86 years old and the last surviving child out of 7.? She has lost all her siblings and her .? She states she is ?Alone.?? ?Nobody is here.? They?re all gone.?? She stated her feelings of depression began when she moved to [facility] in May of 2021.? She stated that this was a big change and she does not like it there.? Some recent discord between her and her son has also been a stressor.? She stated she had not spoken with her son since her fall in October, before and . She is at times, tearful sounding during the follow up call.? She stated that she is willing to see a therapist and that she thinks ?It?s probably a good idea.? CARE Team has referred pt to [facility] geriatric therapy program and has begun the process of referrals to [facility]. Pt has been referred to [facility]
--- NOTE | 2021-12-15 12:32 | MHC.CARE ---
CARE Team contacts Lee Ann Griffin from [facility] and completes a referral for counseling.
== END 2021-12-10 21:11 | disposition home or self-care (01) ==
PROVIDERS: Emergency Provider Emergency Medicine; PCP Internal Medicine
DX: R45.851 Suicidal ideations (principal); F32.A Depression, unspecified; M25.561 Pain in right knee; L03.115 Cellulitis of right lower limb; Z20.822 Contact with and (suspected) exposure to COVID-19; I11.0 Hypertensive heart disease with heart failure; I50.9 Heart failure, unspecified; I48.91 Unspecified atrial fibrillation; Z72.89 Other problems related to lifestyle; Z91.14 Patient's other noncompliance with medication regimen
CPT/HCPCS: 36415; 80048; 80076; 80307; 81001; 82077; 84443; 85025; 87086; 87635; 99212; 99285

== ENCOUNTER → 2022-01-26 12:13 | Outpatient (BNVA) | payer MEDICARE, OTHER, SELFPAY | PROVIDERS: PCP Internal Medicine; Referring Provider Internal Medicine; Visit Provider Internal Medicine Cardiovascular Disease | DX: I48.11 Longstanding persistent atrial fibrillation (principal); I50.9 Heart failure, unspecified | CPT/HCPCS: 99212 ==

== ENCOUNTER 2022-06-17 10:21 | Emergency (ER) | payer MEDICARE, OTHER, SELFPAY ==
--- NOTE | ~2022-06-17 | CT_ITS ---
EXAMINATION: CT ABDOMEN AND PELVIS WITHOUT CONTRAST CLINICAL INFORMATION: Hematuria COMPARISON: 08/07/2021 TECHNIQUE: Multidetector volumetric imaging was performed from the superior aspect of the liver through the pubic symphysis. Sagittal and coronal reformatted images were obtained on the technologist's workstation. This CT examination was performed using dose optimization techniques as appropriate, variously including the following: *Automated exposure control *Adjustment of mA and/or kV according to patient size (this includes techniques or standardized protocols for targeted exams where dose is matched to indication/reason for exam; i.e. extremities or head) *Use of iterative reconstruction technique DLP: 497 mGy-cm FINDINGS: LUNG BASES: Cardiomegaly. No pleural effusion. Smooth thickening of interlobular septa in the visualized bases, similar compared to and suggestive of mild interstitial edema. No pleural effusion. LIVER: The liver has normal size, shape, and attenuation. No evidence of liver mass. GALLBLADDER AND BILIARY TREE: Gallbladder has multiple calcified stones. No gallbladder wall thickening or pericholecystic fluid. No dilated bile ducts. PANCREAS: Normal. No edema, pancreatic ductal dilatation or mass. SPLEEN: Normal. ADRENAL GLANDS: Normal. KIDNEYS AND URETERS: Kidneys are normal in size. 0.2 cm calyceal stone of the lateral lower pole of the left kidney. A few stones of less than 0.3 cm size are present in the lower pole of the right kidney. No large renal stones, hydronephrosis or perinephric edema. Simple cortical cyst of the medial right upper pole is 2.8 cm AP. There is a simple peripelvic cyst of the lower pole of the left kidney. No renal imaging follow-up is recommended for simple cysts. The ureters are unremarkable. BLADDER: Normal. No calculi or wall thickening. BOWEL AND PERITONEUM: Stomach is underdistended. No dilated bowel loops. The appendix is normal. Diverticula of the sigmoid colon without diverticulitis. No abdominal free fluid or pneumoperitoneum. ABDOMINAL WALL: There is a very small fat-containing umbilical hernia. VASCULATURE: Atherosclerotic calcification of abdominal aorta and iliac arteries without aneurysm. LYMPH NODES: No pathologic sized lymph nodes in the abdomen or pelvis. No inguinal lymphadenopathy. PELVIC VISCERA: The old calcification in the midline of the lower pelvis might be located within a leiomyoma of an atrophied uterus; this is unchanged compared to 08/07/2021. No adnexal mass. No pelvic free fluid. SKELETAL: Bone density is diffusely decreased. No acute fractures. Vacuum disc degenerative change and minimal anterolisthesis at L5-S1. 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 CT/CT abdomen pelvis wo con IMPRESSION: * No acute imaging findings in the abdomen or pelvis. * Cardiomegaly. Mild interstitial edema is suspected within the visualized lung bases. No pleural effusion. * Small renal calculi. No large renal stones or obstructive uropathy. * Cholelithiasis without cholecystitis.
[2022-06-17 10:34] VITALS: BP 129/87; BP 150/70; PULSE 110; PULSE 96; RESP 20; TEMP 36; O2SAT 94; O2SAT 98; BMI 25.7
[2022-06-17 11:31] LABS: MANUAL DIFF FLAG NO
[2022-06-17 11:35] VITALS: BP 158/97; PULSE 113; RESP 16; O2SAT 94
[2022-06-17 11:39] LABS: OBS Int Ctl Valid YES; OBS1 NEGATIVE (NEGATIVE)
[2022-06-17 11:39] LABS: Basophils Percent Auto 0.3 % (0-2); Eosinophils Absolute Auto 0.1 X10*3/uL (0.0-0.4); Eosinophils Percent Auto 1.5 % (0-4); Hematocrit 41.5 % (37.0-47.0); Hemoglobin 13.6 g/dl (12.0-16.0); Imm Gran Abs Auto 0.02 X10*3/uL (0.00-0.03); Imm Gran Pct Auto 0.3 % (0.0-0.4); Lymphocytes Absolute Auto 1.3 X10*3/uL (1.2-4.9); Lymphocytes Percent Auto 21.8 % (20-40); Mean Corpuscular HGB Conc 32.8 g/dl (31.0-35.0); Mean Corpuscular Hemoglobin 30.2 pg (27.0-33.0); Mean Platelet Volume 10.5 fL (9.4-12.3); Monocytes Absolute Auto 0.4 X10*3/uL (0.1-1.2); Neutrophils Absolute Auto 4.2 x10*3/uL (2.0-8.3); Neutrophils Percent Auto 69.1 % (45-73); Platelet Count 147 X10*3/uL (160-400); Red Blood Count 4.51 X10*6/uL (4.20-5.50); Red Cell Distribution Width 12.9 % (11.0-16.0)
[2022-06-17 11:39] LABS: Appearance Urine CLEAR; Color Urine YELLOW; Glucose Urine UA NEG (NEG); Leukocyte Esterase Urine 1+ (NEG); Nitrite Urine NEG (NEG); PH 6.5 (5.0-8.0); Specific Gravity - Urine 1.015 (1.005-1.025); UACC Culture Trigger YES; Urine Blood 3+ (NEG); Urine Ketones NEG (NEG); Urine Protein NEG (NEG-TRACE)
[2022-06-17 11:44] LABS: INTERNATIONAL NORM RATIO 1.2 (0.9-1.1); Prothrombin Time 14.1 SEC (10.0-13.1)
[2022-06-17 11:49] LABS: Bacteria Urine TRACE /LPF; Renal Epithelial Cells Urine 1+ /LPF; Squamous Epithelial Cell Urine 2+ /LPF
--- NOTE | 2022-06-17 11:53 | ED.FEMALEGU ---
HPI - Female Genitourinary General Chief complaint: Urogenital-Female Stated complaint: BLOOD IN URINE,ON ELIQUIS PER EMS Time Seen by Provider: 06/17/22 11:05 Source: patient Mode of arrival: EMS Limitations: no limitations History of Present Illness HPI Narrative: Patient presents emergency department today via EMS, reporting intermittent hematuria over the past 2 months. She states initially noticing small amounts of bright red blood for 1-2 days that resolved for approximately 3 weeks then returned again for a couple of days, resolved for a few weeks. Reports most recently having bright red blood without clots that she notices when she is going to the bathroom as of yesterday. She believes this to be from her urine. She does report a history of hemorrhoids, but has not had any pain from them. Denies fevers, chills, chest pain, palpitations, shortness of breath, nausea, vomiting, abdominal pain, constipation, diarrhea, dysuria, urinary frequency/urgency/hesitancy, vaginal/pelvic pain, itching, or bleeding. Reports menopause since her early 40s, s/p hysterectomy. She is on Eliquis for atrial fibrillation. Denies any prior issues with bleeding while on this medication. Declines personal history of cancers, irregular pap smears or colonoscopies. Related Data Previous Rx's Medication Instructions Recorded apixaban 5 mg tablet (Eliquis) 5 mg PO BID 90 days #180 tabs 08/07/21 diltiazem HCl 240 mg 240 mg PO BID #180 caps 10/14/21 capsule,extended release 24 hr metoprolol succinate 50 mg 50 mg PO BID #180 tabs 01/27/22 tablet,extended release 24 hr furosemide 20 mg tablet 20 mg PO DAILY #90 tabs 01/29/22 levothyroxine 25 mcg tablet 25 mcg PO DAILY #90 tabs 04/26/22 (Levo-T) Allergies Allergy/AdvReac Type Severity Reaction Status Date / Time amoxicillin [From AUGMENTIN] Allergy Intermediate RASH Verified 01/15/22 13:59 gabapentin [GABAPENTIN] Allergy Unknown UNKNOWN Verified 01/15/22 13:59 Review of Systems Review of Systems: Constitutional: No weight loss. No fever. No chills. No weakness. No fatigue. Skin: No rash. No itching. Cardiovascular: No chest pain. No chest pressure. No palpitations. Respiratory: No shortness of breath. No cough. Gastrointestinal: No anorexia. No nausea. No vomiting. No diarrhea. No abdominal pain. No blood in stool. Genitourinary: No burning micturition. No urinary frequency. No incontinence. Positive hematuria Neurologic: No headache. No dizziness. No pre-syncope/ syncope. Musculoskeletal: No muscle pain. No back pain. No joint pain. No stiffness. Hematologic: Positive bleeding. No bruising. Psychiatric:No depression. No anxiety. Endocrine: No polyuria. No polydipsia. Yes all other systems are reviewed and are negative [facility] Past Medical History Attestation statement: The following information was validated with the patient. Source: old records reviewed Medical History Acquired deformity of toenail Acquired hypothyroidism Anxiety disorder Atrial fibrillation Chronic anticoagulation Degenerative disc disease, lumbar Depression, major, in remission Depression, major, recurrent Diastolic CHF HTN (hypertension) Insomnia Left bundle branch block Legionnaires' disease Lumbar disc disease with radiculopathy Lumbar radiculopathy Menopause Skin lesion of neck Surgical History Previous back surgery Family History Family History Brother Leukemia Social History Social History Household Members: None Housing: Apartment Housing Other:: independent living Do you presently have visiting nurse or other home services: No Alcohol intake: current Alcohol intake frequency: does not drink Patient Tobacco Use Status: Former Tobacco user Tobacco use type: Cigarette Cigarettes Per Day: 10 Smoked in Last 30 Days: No e-Cigarette/Vaping Use: Never Used Second Hand Smoke Exposure: No Use of substances other than those prescribed or required for medical reasons: No Advance Directives: Yes Advance Directives on File: Yes Advance Directives Date on File: 12/10/21 service: No Current occupational status: retired Physical Exam Vital Signs: Vital Signs: Last Vital Signs Temp 97.1 F 06/17/22 13:55 Pulse 107 H 06/17/22 15:30 Resp 20 06/17/22 15:30 BP 154/91 H 06/17/22 15:30 Pulse Ox 94 06/17/22 15:30 O2 Del Method 06/17/22 15:30 BMI result Body Mass Index 25.7 Vital signs have been reviewed as normal and appeared to be correct. Hypertensive.? Tachycardia. Respiration rate normal. Temperature normal.? Oxygen saturation normal. Appearance: Alert.?Oriented to person, place and time. No acute distress.?Normal affect. Eyes: Pupils equal, round and reactive to light.? ENT: Pharynx normal.?? Neck: Normal inspection.? Neck supple.?? CVS: Heart sounds normal. Normal heart rate and rhythm.? Pulses normal.?? Respiratory: No respiratory distress.? Lung sounds clear to auscultation bilaterally?? Abdomen: Soft and non-tender. Normoactive bowel sounds. No pulsatile mass.? Genitourinary: No visible blood noted externally at the urethra or vaginal introitus, declines pelvic examination Rectal: Performed with morning nanny, Noni GOODSON, she bright red blood noted on patient's brief posteriorly, on exam small amount of bright red blood noticed external to the rectum, hemorrhoids present none that are obviously bleeding at this time, none thrombosed, no fissures.? Skin: Skin warm and dry.? Normal skin color.? Normal skin turgor.?? Extremities: No lower extremity edema.? Neuro: Moves all extremities spontaneously. Sensation intact bilaterally. CN II-XII intact. No focal neuro deficits. Ambulates with normal steady gait. Course Course Course Narrative: Patient is an 87-year-old female with a past medical history of congestive heart failure, hypertension, atrial fibrillation on Eliquis, hypothyroidism, depression, anxiety sent into emergency department for evaluation of presumed hematuria intermittently, noticed as bright red blood when going to the bathroom. Will obtain CBC to evaluate for leukocytosis/ anemia, CMP to evaluate for abnormal electrolytes /abnormal renal function/ abnormal hepatic/biliary function, Urinalysis to evaluate for microscopic hematuria, and occult stool. Reevaluation(s) Reevaluation #1: CBC is overall unremarkable, mild thrombocytopenia inconsistent with prior labs, no anemia. CMP overall unremarkable. Occult stool is negative. Urinalysis reveals 3+ blood, 10-[address] of the abdomen and pelvis to exclude nephrolithiasis, obstructive pathology, or is abdominal mass as a source of hematuria. Time: 12:08 Reevaluation #2: CT the abdomen and pelvis reveals no acute pathology. There is a presence of small renal calculi but no large renal stones or obstructive uropathy. Gross/ Microscopic hematuria may be secondary to anticoagulant use, or renal calculi, however cannot exclude possibility of bladder cancer, given she is currently asymptomatic without significant anemia, discussed these findings with the patient, advised that she follow up outpatient with Urology for further evaluation, discussed that she may require further procedures to exclude bladder cancer. Patient verbalized understanding of this, discussed worrisome signs and symptoms to return back to emergency department for, all questions were answered, she was discharged home in stable condition. Time: 15:20 [facility] - Female Genitourinary Medical Records Attestation: I reviewed the patient's medical records. Lab Data Attestation: I reviewed the patient's lab results. Result diagrams: 06/17/22 11:24 06/17/22 11:24 Labs: Lab Results 06/17/22 06/17/22 06/17/22 Range/Units 11:19 11:24 11:24 WBC 6.0 (4.8-10.8) X10*3/uL RBC 4.51 (4.20-5.50) X10*6/uL Hgb 13.6 (12.0-16.0) g/dl Hct 41.5 (37.0-47.0) % MCV 92.0 (80.0-98.0) fL MCH 30.2 (27.0-33.0) pg MCHC 32.8 (31.0-35.0) g/dl RDW 12.9 (11.0-16.0) % Plt Count 147 L (160-400) X10*3/uL MPV 10.5 (9.4-12.3) fL Immature Gran % (Auto) 0.3 (0.0-0.4) % Neut % (Auto) 69.1 (45-73) % Lymph % (Auto) 21.8 (20-40) % [place] % (Auto) 7.0 (2-11) % Eos % (Auto) 1.5 (0-4) % Baso % (Auto) 0.3 (0-2) % Lymph # (Auto) 1.3 (1.2-4.9) X10*3/uL [place] # (Auto) 0.4 (0.1-1.2) X10*3/uL Eos # (Auto) 0.1 (0.0-0.4) X10*3/uL Baso # (Auto) 0.0 (0.0-0.2) X10*3/uL Abs Immat Gran (auto) 0.02 (0.00-0.03) X10*3/uL Absolute Neuts (auto) 4.2 (2.0-8.3) x10*3/uL Absolute Nucleated RBC 0.000 (0.0-0.012) X10*3/uL Nucleated RBC % (auto) 0.0 (0.0-0.2) /100WBC PT (10.0-13.1) SEC INR (0.9-1.1) Sodium 143 (135-145) mmol/L Potassium 4.2 (3.3-5.1) mmol/L Chloride 109 H (96-108) mmol/L Carbon Dioxide 25 (22-29) mmol/L Anion Gap 13 (12-20) BUN 21 H (9-16) mg/dL Creatinine 0.80 (0.5-1.4) mg/dL Estim Creat Clear Calc 48.7 Estimated GFR > 60 Random Glucose 110 (60-115) mg/dL Calcium 9.2 (8.4-10.2) mg/dL Total Bilirubin 0.9 (0.0-1.0) mg/dL AST 20 (5-31) U/L ALT 14 (0-31) U/L Alkaline Phosphatase 126 H (39-117) U/L Total Protein 7.0 (6.5-8.0) g/dL Albumin 4.4 (3.5-5.0) g/dL Urine Color YELLOW Urine Appearance CLEAR Urine pH 6.5 (5.0-8.0) Ur Specific [place] 1.015 (1.005-1.025) Urine Protein NEG (NEG-TRACE) MG/DL Urine Glucose (UA) NEG (NEG) MG/DL Urine Ketones NEG (NEG) MG/DL Urine Blood 3+ H (NEG) Urine Nitrite NEG (NEG) Ur Leukocyte Esterase 1+ H (NEG) Urine RBC 10-14 H (0) /HPF Urine WBC 1-4 (0-4) /HPF Ur Squamous Epith Cells 2+ /LPF Ur Renal Epithelial Cell 1+ /LPF Urine Bacteria TRACE /LPF Stool Occult Blood (NEGATIVE) 06/17/22 06/17/22 Range/Units 11:24 11:25 WBC (4.8-10.8) X10*3/uL RBC (4.20-5.50) X10*6/uL Hgb (12.0-16.0) g/dl Hct (37.0-47.0) % MCV (80.0-98.0) fL MCH (27.0-33.0) pg MCHC (31.0-35.0) g/dl RDW (11.0-16.0) % Plt Count (160-400) X10*3/uL MPV (9.4-12.3) fL Immature Gran % (Auto) (0.0-0.4) % Neut % (Auto) (45-73) % Lymph % (Auto) (20-40) % [place] % (Auto) (2-11) % Eos % (Auto) (0-4) % Baso % (Auto) (0-2) % Lymph # (Auto) (1.2-4.9) X10*3/uL [place] # (Auto) (0.1-1.2) X10*3/uL Eos # (Auto) (0.0-0.4) X10*3/uL Baso # (Auto) (0.0-0.2) X10*3/uL Abs Immat Gran (auto) (0.00-0.03) X10*3/uL Absolute Neuts (auto) (2.0-8.3) x10*3/uL Absolute Nucleated RBC (0.0-0.012) X10*3/uL Nucleated RBC % (auto) (0.0-0.2) /100WBC PT 14.1 H (10.0-13.1) SEC INR 1.2 H (0.9-1.1) Sodium (135-145) mmol/L Potassium (3.3-5.1) mmol/L Chloride (96-108) mmol/L Carbon Dioxide (22-29) mmol/L Anion Gap (12-20) BUN (9-16) mg/dL Creatinine (0.5-1.4) mg/dL Estim Creat Clear Calc Estimated GFR Random Glucose (60-115) mg/dL Calcium (8.4-10.2) mg/dL Total Bilirubin (0.0-1.0) mg/dL AST (5-31) U/L ALT (0-31) U/L Alkaline Phosphatase (39-117) U/L Total Protein (6.5-8.0) g/dL Albumin (3.5-5.0) g/dL Urine Color Urine Appearance Urine pH (5.0-8.0) Ur Specific [place] (1.005-1.025) Urine Protein (NEG-TRACE) MG/DL Urine Glucose (UA) (NEG) MG/DL Urine Ketones (NEG) MG/DL Urine Blood (NEG) Urine Nitrite (NEG) Ur Leukocyte Esterase (NEG) Urine RBC (0) /HPF Urine WBC (0-4) /HPF Ur Squamous Epith Cells /LPF Ur Renal Epithelial Cell /LPF Urine Bacteria /LPF Stool Occult Blood NEGATIVE (NEGATIVE) Imaging Data CT scan - abdomen: Radiologist's impression: CT/CT abdomen pelvis wo con IMPRESSION: *? No acute imaging findings in the abdomen or pelvis. *? Cardiomegaly. Mild interstitial edema is suspected within the visualized lung bases. No pleural effusion. *? Small renal calculi. No large renal stones or obstructive uropathy. *? Cholelithiasis without cholecystitis. Discharge Plan Discharge Clinical Impression: Hematuria Patient Disposition: Home, Self-Care Instructions: Hematuria (ED) Additional Instructions: As we discussed, your blood counts are normal which is reassuring. A CT of your abdomen does indicate small kidney stones which may possibly be the source of blood in your urine, additionally he was at the blood in your urine due to your Eliquis. However, as we discussed it would be best for you to contact urologist, to schedule further follow-up, we did discuss the possibility of bladder cancer as a cause of blood in your urine. Please contact your primary care provider and arrange for follow-up within 3 days. You may return to the emergency department for any new or worsening symptoms or concerns, such as dizziness, lightheadedness, chest pain, palpitations, shortness of breath, difficulty breathing, significant increase in bleeding, weakness, fevers, chills. Prescriptions: No Action Eliquis 5 mg tablet 5 mg PO BID 90 Days Qty: 180 3RF diltiazem HCl 240 mg capsule,extended release 24hr 240 mg PO BID Qty: 180 3RF metoprolol succinate 50 mg tablet extended release 24 hr 50 mg PO BID Qty: 180 3RF furosemide 20 mg tablet 20 mg PO DAILY Qty: 90 3RF levothyroxine [Levo-T] 25 mcg tablet 25 mcg PO DAILY Qty: 90 1RF Referrals: Trenton Arredondo MD [Physician] - 1 week Amauri Horton MD [Primary Care Provider] - 3 days Interventions: ED Discharge Assessment Last Done: 06/17/22 15:42 Discharge Date/Time: 06/17/22 16:30
[2022-06-17 11:55] LABS: Alanine Aminotransferase 14 U/L (0-31); Albumin Level 4.4 g/dL (3.5-5.0); Alkaline Phosphatase 126 U/L (39-117); Anion Gap 13 (12-20); Aspartate Amino Transferase 20 U/L (5-31); Bilirubin Total 0.9 mg/dL (0.0-1.0); Blood Urea Nitrogen 21 mg/dL (9-16); Calcium 9.2 mg/dL (8.4-10.2); Carbon Dioxide 25 mmol/L (22-29); Chloride 109 mmol/L (96-108); Creatinine Clr Calc Pharmacy 48.7; Estimated Glomerular Filt Rate > 60; Glucose Random 110 mg/dL (60-115); Potassium 4.2 mmol/L (3.3-5.1); Sodium 143 mmol/L (135-145)
[2022-06-17 13:55] VITALS: BP 155/94; PULSE 113; RESP 16; TEMP 36.2; O2SAT 94
[2022-06-17 15:30] VITALS: BP 154/91; PULSE 107; RESP 20; O2SAT 94
== END 2022-06-17 16:30 | disposition home or self-care (01) ==
PROVIDERS: Nurse Practitioner Family; Emergency Provider Emergency Medicine Emergency Medical Services; PCP Internal Medicine
DX: R31.9 Hematuria, unspecified (principal); I48.91 Unspecified atrial fibrillation; I11.0 Hypertensive heart disease with heart failure; I50.30 Unspecified diastolic (congestive) heart failure; Z79.01 Long term (current) use of anticoagulants; Z87.891 Personal history of nicotine dependence
CPT/HCPCS: 36415; 74176; 80053; 81001; 82272; 85025; 85610; 87086; 99284

== ENCOUNTER → 2022-06-24 09:20 | Outpatient (REF) | payer MEDICARE, OTHER, SELFPAY ==
--- NOTE | 2022-06-24 09:23 | CA_ITS ---
Transthoracic Echocardiogram Patient (Last, First, Middle): Pastora Combs M Gender: Female Date of : 1935 Age: 87 Procedure Date: 06/24/2022 Procedure Type: Transthoracic Echocardiogram Location: OP Height: 167.64 cm Weight: 72.58 kg BSA: 1.82 m2 Heart Rate: 66 bpm BP: 137 / 74 mmHg Window Clerk: SB Referring MD: Luis Hunt MD Symptoms: I48.91 - Unspecified atrial fibrillation Study Quality: Fair ECG Rhythm: Atrial Fibrillation Conclusions: - The left ventricular systolic function is mildly decreased. The calculated ejection fraction is 50% by biplane method. - Moderate biatrial enlargement. - No obvious valvular pathology seen on this study. - Mild pulmonary hypertension is present. Findings Left Ventricle Normal left ventricular cavity size. There is normal left ventricular wall thickness. The left ventricular systolic function is mildly decreased. The calculated ejection fraction is 50% by biplane method. There is no evidence of regional wall motion abnormalities. Diastolic function is indeterminate on the basis of available data. Right Ventricle Normal right ventricular cavity size. There is mild to moderately decreased right ventricular systolic function. TAPSE 1.2-1.3cm. Atria Moderate biatrial enlargement. Aortic Valve The aortic valve structure and function is likely normal. There is mild calcification of the aortic valve. There is no aortic valve stenosis. There is no aortic valve regurgitation. Mitral Valve There is mild mitral annular calcification. There is trace mitral valve regurgitation. There is no mitral valve stenosis. Pulmonic Valve The pulmonic valve is likely normal. Tricuspid Valve Normal tricuspid valve structure. There is mild tricuspid valve regurgitation. The right ventricular systolic pressure is 46 mmHg. Mild pulmonary hypertension is present. Great Vessels The aortic annulus, sinuses of valsalva, and asc aorta are normal in size. Venous The inferior vena cava is mildly dilated and collapses less than 50% with inspiration. Pericardium/Pleural There is no evidence of pericardial effusion. Prior Study Comparison No significant change compared to prior study dated: 08/10/2021. Recommendations, Care & Conclusions No obvious valvular pathology seen on this study. Measurements 2D Linear Measurements IVSd: 0.79 0.6-0.9/0.6-1.0 cm LVIDd: 4.16 3.9-5.3/4.2-5.9 cm LVIDd Index: 2.29 2.4-3.2/2.2-3.1 cm/m2 LVIDs: 3.08 2.0-3.6 cm LVPWd: 1.26 0.7-1.1 cm LA Diam: 4.50 2.7-3.8/3.0-4.0 cm LAIDs Index: 2.47 1.5-2.3 cm/m2 LV Mass: 174.19 67-162/88-224 g LV Mass Index: 95.71 43-95/49-115 g/m2 LVOT Diam: 2.10 3.0+(-)1.3 cm 2D Systolic Function EF 4C: 48.70 >55% EF 2C: 52.80 >55% EF BiP: 50.00 >55% Aortic Valve AoV Pk Lele: 0.89 AoV Mn Lele: 0.65 AoV VTI: 0.19 AoV Pk Grad: 3.00 Aov Mn Grad: 2.00 SILVANA Cont.VTI: 2.34 LVOT LVOT Pk Lele: 0.62 LVOT Mn Lele: 0.47 LVOT VTI: 0.13 LVOT Pk Grad: 2.00 LVOT Mn Grad: 1.00 LVOT Diam: 2.10 LVOT Area: 3.46 Right Ventricle TAPSE (mm): 6.30 TVS' Lele: 8.80 Tricuspid Valve TR Pk Lele: 2.79 TR Pk Grad: 31.00 RA Press: 15.00 RVSP: 46.00 Great Vessels Aorta Sinus of Valsalva: 3.20 2.0-3.5 cm Ao Asc: 2.80 2.1-3.4 cm Pulmonary Valve PV Pk Lele: 0.60 Peak PV Grad: 1.00 Updated in Other Vendor System with Status of Final Armin Woodall MD electronically signed on 06/26/2022 12:25:06 PM with status of Final
== END ==
LOC: HO.CARD 09:20
PROVIDERS: PCP Internal Medicine; Visit Provider Internal Medicine Cardiovascular Disease
DX: I48.91 Unspecified atrial fibrillation (principal)
CPT/HCPCS: 93306

== ENCOUNTER → 2022-07-15 11:45 | Outpatient (BNVA) | payer MEDICARE, OTHER, SELFPAY | PROVIDERS: PCP Internal Medicine | DX: R31.9 Hematuria, unspecified (principal) | CPT/HCPCS: 99202 ==

== ENCOUNTER → 2022-08-04 13:24 | Outpatient (BNVA) | payer MEDICARE, OTHER, SELFPAY | PROVIDERS: PCP Internal Medicine; Referring Provider Internal Medicine; Visit Provider Internal Medicine Cardiovascular Disease | DX: I50.9 Heart failure, unspecified (principal); I48.11 Longstanding persistent atrial fibrillation | CPT/HCPCS: 99212 ==

== ENCOUNTER → 2023-03-04 13:41 | Outpatient (BNVA) | payer MEDICARE, OTHER, SELFPAY | PROVIDERS: Visit Provider Internal Medicine Cardiovascular Disease | DX: I50.9 Heart failure, unspecified (principal); I48.11 Longstanding persistent atrial fibrillation | CPT/HCPCS: 93005; 99212 ==

== ENCOUNTER 2023-09-26 13:40 | Outpatient (AMB) | payer MEDICARE, OTHER, SELFPAY ==
[2023-09-26 13:41] VITALS: BP 130/82; PULSE 87; BMI 27.9
--- NOTE | 2023-09-26 13:41 | MHC.OFFVIS ---
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 She has been doing very well from cardiac perspective overall. Denies any new cardiac symptoms. Denies any prolonged palpitation irregular heartbeat. No worsening shortness of breath, orthopnea, PND. No bleeding issues or neurologic events. Denies any lightheadedness, syncope. [facility] Medical History Hematuria Depression, major, in remission Depression, major, recurrent Lumbar disc disease with radiculopathy Diastolic CHF Lumbar radiculopathy Left bundle branch block HTN (hypertension) Skin lesion of neck Legionnaires' disease Menopause Acquired deformity of toenail Chronic anticoagulation Anxiety disorder Degenerative disc disease, lumbar Insomnia Acquired hypothyroidism Atrial fibrillation Surgical History Previous back surgery Family History Brother Leukemia Social History Household Members: None Housing: Apartment Housing Other:: independent gemini Hearing needs ing Do you presently have visiting nurse or other home services: No Alcohol intake: current Alcohol intake frequency: does not drink Patient Tobacco Use Status: Former Tobacco user Tobacco use type: Cigarette Cigarettes Per Day: 10 e-Cigarette/Vaping Use: Never Used Second Hand Smoke Exposure: No Advance Directives Date on File: 12/10/21 service: No Current occupational status: retired Cognitive needs: No Hearing needs: No Vision needs: Yes Review of Systems Const Denies chills, Denies fatigue, Denies fever(s), Denies frequent falls, Denies weakness, Denies weight gain and Denies weight loss ENT Denies dizziness Card Denies chest pain, Denies leg edema, Denies lightheadedness, Denies palpitations, Denies dyspnea, Denies dyspnea on exertion, Denies orthopnea and Denies other (loss of consciousness) Resp Denies cough, Denies dyspnea and Denies dyspnea on exertion GI Denies hematochezia and Denies change in stool character Musc Denies abnormal gait, Denies muscle weakness, Denies numbness, Denies radiating pain into limb and Denies tingling Neuro Denies abnormal gait, Denies dizziness, Denies frequent falls, Denies numbness, Denies tingling and Denies weakness Endo Denies fatigue and Denies palpitations Physical Exam Vital Signs: Last Vital Signs Pulse 87 09/26/23 13:41 BP 130/82 09/26/23 13:41 BMI result Body Mass Index 27.9 Const General: cooperative, comfortable, no acute distress, alert, awake and well groomed Nutritional Appearance: average body habitus Orientation/consciousness: patient oriented x3 Limitations: no limitations Neck Neck: Yes trachea midline, Yes supple and Yes no JVD Resp Effort & Inspection: normal respiratory effort Auscultation: clear to auscultation bilaterally and diminished lung sounds Cardio Jugular venous distension: no JVD Palpation: normal PMI Rate: regular rate Rhythm: abnormal rhythm irregularly irregular Heart sounds: S1 normal heart sound present, S2 normal heart sound present, no click, no gallops, no murmurs and no rubs GI Auscultation: normal bowel sounds Neuro General: patient oriented x3 and no focal motor deficits Extrem General: No clubbing, No cyanosis, Yes pedal edema and Yes other (Bilateral my varicosities) Assessment & Plan Assessment & Plan (1) Atrial fibrillation: Comment: With history of cardioversion [place] [address] Hunt, remained in AFib Code(s): I48.91 - Unspecified atrial fibrillation Qualifiers: Atrial fibrillation type: longstanding persistent Qualified Code(s): I48.11 - Longstanding persistent atrial fibrillation Plan: Chronic rate control atrial fibrillation. Currently doing well with rate control. Continue current Cardizem as well as metoprolol therapy. Continue full oral anticoagulation, importance of regular anticoagulation was discussed continue Eliquis 5 mg b.i.d.. Semi annual renal function test should be pursued. (2) CHF (congestive heart failure), NYHA class I: Code(s): I50.9 - Heart failure, unspecified Plan: Prior history of heart failure preserved ejection fraction, clinically euvolemic and well compensated with good functional status. Advised to continue current diuretic regimen. Daily weight monitoring avoidance of salt loading was discussed continue aggressive blood pressure control. Continue maintain activity level as tolerated. Follow up in the clinic in 1 year's time, sooner p.r.n.. Thank you for allowing me to partake in her care Coding Level of Care Code Est Pt Level 4 (44564) Diagnoses Atrial fibrillation, unspecified type I48.11 Atrial fibrillation type: longstanding persistent CHF (congestive heart failure), NYHA class I I50.9
== END 2023-09-26 14:08 | disposition home or self-care (01) ==
PROVIDERS: PCP Registered Nurse; Visit Provider Internal Medicine Cardiovascular Disease
DX: I48.11 Longstanding persistent atrial fibrillation (principal); I50.9 Heart failure, unspecified
CPT/HCPCS: 99214

== ENCOUNTER → 2023-09-26 13:40 | Outpatient (BNVA) | payer MEDICARE, OTHER, SELFPAY | PROVIDERS: Visit Provider Internal Medicine Cardiovascular Disease | DX: I48.11 Longstanding persistent atrial fibrillation (principal); I50.9 Heart failure, unspecified | CPT/HCPCS: 99212 ==

== ENCOUNTER 2024-06-29 11:11 | Outpatient (AMB) | payer MEDICARE, OTHER, SELFPAY ==
--- NOTE | 2024-06-29 11:23 | MHC.PC.OV ---
Vital Signs 06/29/24 11:26 Height 5 ft 6 in Weight 162 lb 8 oz BMI 26.2 BP 132/64 Blood Pressure Location Lt brachial Position Sitting Pulse 83 Pulse Source Pulse Oximeter Temp 97.9 F Temp Source Temporal Artery Scan Pulse Oximetry (%) 91 L Intake Visit Reasons: Establish Care not a transfer Intake Note: Patient is here to establish care. Anesthesia Resident Required: No Accompanied by: Self / Same As Patient Allergies amoxicillin [From AUGMENTIN] Allergy (Intermediate, Verified 06/29/24 11:29) RASH gabapentin [GABAPENTIN] Allergy (Unknown, Verified 06/29/24 11:29) UNKNOWN Tobacco use date assessed: 06/29/24 Fall risk assessment: No Falls in past year Last assessed Fall Risk: 06/29/24 Dental Screening Dental Screen Date: 06/29/24 Did you have a dental visit in the last 12 months?: Yes Did you have a dental problem in the last 6 months where you did not have access to dental care?: No Was dental information given to patient?: Patient has dentist HPI HPI Comments History of Present Illness Details The patient is an 89 year old female with a past medical history of anxiety, depression, insomnia hypothyroid, dchf, afib on AC, LBBB lumbar DDD, presenting to establish care. CV: Follows with cardiology, Dr Hunt. On chronic AC. Had ablation 2018 went back into afib. Has had signficant issues with hemorrhoidal bleeding on the AC. She has an upcoming evaluation for a watchman Depression: Lost her son last year to brain cancer. On sertraline 25mg daily. Doing ok. Fatigued often. Sleeping ok. ROS see HPI PHYSICAL EXAM: GENERAL: Alert and oriented x 3. NAD EYES: EOMI. Anicteric. HENT: Moist mucous membranes. No scleral icterus. No cervical lymphadenopathy. LUNGS: Clear to auscultation bilaterally. CARDIOVASCULAR: Irregular. ABDOMEN: Soft, non-tender +bs EXTREMITIES: No edema. Non-tender. SKIN: No rashes or lesions. Warm. NEUROLOGIC: No focal neurological deficits. CN II-XII grossly intact PSYCHIATRIC: Cooperative. Appropriate mood and affect [facility] Medical History Hematuria Depression, major, in remission Depression, major, recurrent Lumbar disc disease with radiculopathy Diastolic CHF Lumbar radiculopathy Left bundle branch block HTN (hypertension) Skin lesion of neck Legionnaires' disease Menopause Acquired deformity of toenail Chronic anticoagulation Anxiety disorder Degenerative disc disease, lumbar Insomnia Acquired hypothyroidism Atrial fibrillation Surgical History Previous back surgery Family History Brother Leukemia Social History Household Members: None Housing: Apartment Housing Other:: independent gemini Hearing needs ing Do you presently have visiting nurse or other home services: No Alcohol intake: current Alcohol intake frequency: does not drink Patient Tobacco Use Status: Former Tobacco user Tobacco use type: Cigarette Cigarettes Per Day: 10 e-Cigarette/Vaping Use: Never Used Second Hand Smoke Exposure: No Advance Directives Date on File: 12/10/21 service: No Current occupational status: retired Cognitive needs: No Hearing needs: No Vision needs: Yes Questionnaire PHQ-9 Over the last 2 weeks, how often have you been bothered by any of the following problems? 1. Little interest or pleasure in doing things: not at all 2. Feeling down, depressed, or hopeless: not at all 3. Trouble falling or staying asleep, or sleeping too much: not at all 4. Feeling tired or having little energy: not at all 5. Poor appetite or overeating: not at all 6. Feeling bad about yourself - or that you are a failure or have let yourself or your family down: not at all 7. Trouble concentrating on things, such as reading the newspaper or watching television: not at all 8. Moving or speaking so slowly that other people could have noticed. Or the opposite - being so fidgety or restless that you have been moving around a lot more than usual: not at all 9. Thoughts that you would be better off or of hurting yourself in some way: not at all Total score: 0 Depression Screening Interpretation: Negative (neg) Depression Screening Done: Yes 06704 - PHQ-9 Billing: Yes Source: Developed by Drs. Juarez Lal, Keyana Llamas, Ranjit Garg and colleagues, with an educational lizeth from [employer]. Thrive Questionnaire Date Thrive assessed: 06/29/24 I am a: Patient What is your living situation today?: I have a steady place to live Within the past 12 months, did the food you bought not last and you didn't have the money to get more?: Never true Within the past 12 months, did you worry whether your food would run out before you got money to buy more?: Never true Do you have trouble paying for medicines?: No Do you have trouble getting transportation to medical appointments?: No Do you have trouble paying your heating and electricity bill?: No Do you have trouble taking care of your child, family member or friend?: No Do you have trouble with day-to-day activities such as bathing, preparing meals, shopping, managing finances, etc.?: No Are you currently unemployed and looking for a job?: No Are you interested in more education?: No Please select the resources that you would like help with: None Currently or been in a relationship where the following occur: No concerns reported THRIVE Score: 0 AUDIT C Alcohol Use Questionnaire (AUDIT-C) 1. How often do you have a drink containing alcohol?: Monthly or less 2. How many drinks containing alcohol do you have on a typical day when you are drinking?: 1 or 2 3. How often do you have six or more drinks on one occasion?: Never Total Score: 1 ASIM-7 AMB Questionnaire ASIM-7 Date ASIM - 7 assessed: 06/29/24 Feeling nervous, anxious, or on edge: 0 = Not at all Not being able to stop or control worryin = Not at all Worrying too much about different things: 0 = Not at all Trouble relaxin = Not at all Being so restless that it is hard to sit still: 0 = Not at all Becoming easily annoyed or irritable: 0 = Not at all Feeling afraid as if something awful might happen: 0 = Not at all Total ASIM-7 score (0-4 normal; 5-9 mild; 10-14 moderate; 15-21 severe): 0 Source: Developed by Drs. Juarez Lal, Keyana Llamas, Ranjit Garg and colleagues, with an educational lizeth from [employer]. ASIM-7 Assessment Billing ASIM-7 Assessment Tool: ASIM-7 Assessment 17255 Physical exam (Primary Care) Vital Signs: Last Vital Signs Temp 97.9 F 06/29/24 11:26 Pulse 83 06/29/24 11:26 BP 132/64 06/29/24 11:26 Pulse Ox 91 L 06/29/24 11:26 BMI result Body Mass Index 26.2 Tobacco/Smoking Status: Tobacco use Status Tobacco use date assessed 06/29/24 06/29/24 11:32 Patient Tobacco Use Status Former Tobacco user 06/29/24 11:33 Tobacco use type Cigarette 06/29/24 11:33 e-Cigarette/Vaping Use Never Used 06/29/24 11:33 PHQ-9: PHQ-9 Score PHQ-9: Total score 0 07/01/24 19:02 Depression Screening Interpretation: Negative (neg) Thrive Assessment: Date of Thrive Assessment Date Thrive assessed 06/29/24 06/29/24 11:34 Currently or been in a relationship where the following occur: No concerns reported Assessment and Plan Assessment & Plan (1) Atrial fibrillation: Code(s): I48.91 - Unspecified atrial fibrillation Qualifiers: Atrial fibrillation type: longstanding persistent Qualified Code(s): I48.11 - Longstanding persistent atrial fibrillation Plan: continue AC. Upcoming consultation for watchman (2) HTN (hypertension): Code(s): I10 - Essential (primary) hypertension Qualifiers: Hypertension type: primary hypertension Qualified Code(s): I10 - Essential (primary) hypertension (3) CHF (congestive heart failure), NYHA class I: Code(s): I50.9 - Heart failure, unspecified Qualifiers: Congestive heart failure type: unspecified Qualified Code(s): I50.9 - Heart failure, unspecified Plan: continue cardiology follow up (4) Depression, major, in remission: Code(s): F32.5 - Major depressive disorder, single episode, in full remission Plan: continue sertraline. Orders: Orders Vitamin B12 and Folate 06/29/24 R53.83 - Other fatigue Complete Blood Count Auto Diff 06/29/24 F32.5 - Major depressive disorder, single episode, in full remission, I10 - Essential (primary) hypertension, I48.11 - Longstanding persistent atrial fibrillation, I50.9 - Heart failure, unspecified Comprehensive Met. Panel 06/29/24 F32.5 - Major depressive disorder, single episode, in full remission, I10 - Essential (primary) hypertension, I48.11 - Longstanding persistent atrial fibrillation, I50.9 - Heart failure, unspecified Lipid Panel 06/29/24 F32.5 - Major depressive disorder, single episode, in full remission, I10 - Essential (primary) hypertension, I48.11 - Longstanding persistent atrial fibrillation, I50.9 - Heart failure, unspecified TSH reflex Free T4 06/29/24 E03.9 - Hypothyroidism, unspecified IRON PROFILE 06/29/24 R53.83 - Other fatigue Coding Level of Care Code New Pt Level 4 (97909) Diagnoses Atrial fibrillation, unspecified type I48.11 Atrial fibrillation type: longstanding persistent Primary hypertension I10 Hypertension type: primary hypertension Congestive heart failure, NYHA class 1, unspecified congestive heart failure type I50.9 Congestive heart failure type: unspecified Depression, major, in remission F32.5 Additional Codes ASIM-7 Assessment Billing - ASIM-7 Assessment Tool: ASIM-7 Assessment [id number] ([id number])
[2024-06-29 11:26] VITALS: BP 132/64; PULSE 83; TEMP 36.6; O2SAT 91; BMI 26.2
== END 2024-06-29 12:03 | disposition home or self-care (01) ==
PROVIDERS: PCP Internal Medicine; Visit Provider Internal Medicine
DX: I48.11 Longstanding persistent atrial fibrillation (principal); I11.0 Hypertensive heart disease with heart failure; I50.9 Heart failure, unspecified; F32.5 Major depressive disorder, single episode, in full remission
CPT/HCPCS: 99214

== ENCOUNTER 2024-06-29 12:19 | Outpatient (REF) | payer MEDICARE, OTHER, SELFPAY ==
[2024-06-29 13:58] LABS: MANUAL DIFF FLAG NO
[2024-06-29 14:04] LABS: Basophils Percent Auto 0.3 % (0-2); Hemoglobin 12.9 g/dl (12.0-16.0); Imm Gran Abs Auto 0.02 X10*3/uL (0.00-0.03); Imm Gran Pct Auto 0.3 % (0.0-0.4); Lymphocytes Absolute Auto 1.2 X10*3/uL (1.2-4.9); Lymphocytes Percent Auto 19.4 % (20-40); Mean Corpuscular HGB Conc 31.5 g/dl (31.0-35.0); Mean Corpuscular Hemoglobin 28.2 pg (27.0-33.0); Mean Corpuscular Volume 89.7 fL (80.0-98.0); Monocytes Absolute Auto 0.5 X10*3/uL (0.1-1.2); Neutrophils Absolute Auto 4.7 x10*3/uL (2.0-8.3); Platelet Count 198 X10*3/uL (160-400); Red Blood Count 4.57 X10*6/uL (4.20-5.50); Red Cell Distribution Width 13.2 % (11.0-16.0); White Blood Count 6.4 X10*3/uL (4.8-10.8)
[2024-06-29 14:22] LABS: Alanine Aminotransferase 12 U/L (0-31); Albumin Level 4.6 g/dL (3.5-5.0); Alkaline Phosphatase 100 U/L (39-117); Anion Gap 12 (12-20); Aspartate Amino Transferase 20 U/L (5-31); Bilirubin Total 0.9 mg/dL (0.0-1.0); Blood Urea Nitrogen 20 mg/dL (9-16); Calcium 10.3 mg/dL (8.4-10.2); Carbon Dioxide 31 mmol/L (22-29); Chloride 102 mmol/L (96-108); Cholesterol 223 mg/dL (<200); Estimated Glomerular Filt Rate > 60; Glucose Random 96 mg/dL (60-115); HDL Cholesterol 51 mg/dL (>40); Iron 85 mcg/dL (30-160); LDL Cholesterol Calculated 136 mg/dL (<100); Percent Iron Saturation 22 % (15-50); Potassium 3.8 mmol/L (3.3-5.1); Sodium 141 mmol/L (135-145); Total Iron Binding Capacity 395 mcg/dL (228-428); Total Protein 7.6 g/dL (6.5-8.0); Triglycerides 183 mg/dL (<150); Unsaturated Iron Binding 310 ug/dL
[2024-06-29 14:46] LABS: TSH reflex Free T4 0.33 uIU/mL (0.32-4.0)
[2024-06-29 14:59] LABS: Folate 9.5 ng/mL (> or = 4.0); Vitamin B12 247 pg/mL (200-900)
== END 2024-06-29 12:20 | disposition home or self-care (01) ==
LOC: HO.WFDLDS 12:19
PROVIDERS: Visit Provider Internal Medicine
DX: F32.5 Major depressive disorder, single episode, in full remission (principal); I50.9 Heart failure, unspecified; I10 Essential (primary) hypertension; I48.11 Longstanding persistent atrial fibrillation; E03.9 Hypothyroidism, unspecified; R53.83 Other fatigue
CPT/HCPCS: 36415; 80053; 80061; 82607; 82746; 83540; 84443; 85025

== ENCOUNTER 2024-08-31 09:22 | Outpatient (AMB) | payer MEDICARE, OTHER, SELFPAY ==
--- NOTE | 2024-08-31 09:45 | A.OFFPC_ITS ---
Vital Signs 08/31/24 09:47 Height 5 ft 6 in Weight 163 lb 4 oz BMI 26.3 BP 136/74 Blood Pressure Location Lt brachial Position Sitting Respiration 14 Pulse 104 H Pulse Source Pulse Oximeter Temp 98.4 F Temp Source Oral Pulse Oximetry (%) 94 Oxygen Delivery Method Room Air Intake Visit Reasons: TroubleBreathing Intake Note: Trouble breathing. Symptoms started about a week ago. Was congestion. Feeling better today. Tested for covid yesterday and was negative. Allergies amoxicillin [From AUGMENTIN] Allergy (Intermediate, Verified 06/29/24 11:29) RASH gabapentin [GABAPENTIN] Allergy (Unknown, Verified 06/29/24 11:29) UNKNOWN Tobacco use date assessed: 06/29/24 Dental Screening Dental Screen Date: 06/29/24 HPI HPI Comments History of Present Illness Details The patient is an 89 year old female with a past medical history of anxiety, depression, insomnia hypothyroid, dchf, afib on AC, LBBB lumbar DDD, presenting for shortness of breath Reports that she developed a cold last week. Started to be more short of breath. [place] feverish one night. Was coughing-cough drops helped. The coughing seems to be getting less frequent but she continues to have some shortness of breath. Worse when going up stairs. She denies chest pain. Up one pound since last visit. Has been out of hctz for the past week. Denies leg swelliing CV: Follows with cardiology, Dr Hunt. On chronic AC. Had ablation 2018 went back into afib. Has had signficant issues with hemorrhoidal bleeding on the AC. She has an upcoming evaluation for a watchman Depression: Lost her son last year to brain cancer. On sertraline 25mg daily. Doing ok. Fatigued often. Sleeping ok. ROS see HPI PHYSICAL EXAM: GENERAL: Alert and oriented x 3. NAD EYES: EOMI. Anicteric. HENT: Moist mucous membranes. No scleral icterus. No cervical lymphadenopathy. LUNGS: Decreased air entry left ant/posterior CARDIOVASCULAR: Irregular. +JVD on HJR ABDOMEN: Soft, non-tender +bs EXTREMITIES: No edema. Non-tender. SKIN: No rashes or lesions. Warm. NEUROLOGIC: No focal neurological deficits. CN II-XII grossly intact PSYCHIATRIC: Cooperative. Appropriate mood and affect [facility] Medical History Hematuria Depression, major, in remission Depression, major, recurrent Lumbar disc disease with radiculopathy Diastolic CHF Lumbar radiculopathy Left bundle branch block HTN (hypertension) Skin lesion of neck Legionnaires' disease Menopause Acquired deformity of toenail Chronic anticoagulation Anxiety disorder Degenerative disc disease, lumbar Insomnia Acquired hypothyroidism Atrial fibrillation Surgical History Previous back surgery Family History Brother Leukemia Social History Household Members: None Housing: Apartment Housing Other:: independent gemini Hearing needs ing Do you presently have visiting nurse or other home services: No 75 years or older and lives alone: No Alcohol intake: current Alcohol intake frequency: does not drink Patient Tobacco Use Status: Former Tobacco user Tobacco use type: Cigarette Cigarettes Per Day: 10 e-Cigarette/Vaping Use: Never Used Second Hand Smoke Exposure: No Advance Directives Date on File: 12/10/21 service: No Current occupational status: retired Cognitive needs: No Hearing needs: No Vision needs: Yes Questionnaire PHQ-9 Over the last 2 weeks, how often have you been bothered by any of the following problems? 1. Little interest or pleasure in doing things: several days 2. Feeling down, depressed, or hopeless: not at all 3. Trouble falling or staying asleep, or sleeping too much: nearly every day 4. Feeling tired or having little energy: nearly every day 5. Poor appetite or overeating: not at all 6. Feeling bad about yourself - or that you are a failure or have let yourself or your family down: not at all 7. Trouble concentrating on things, such as reading the newspaper or watching television: not at all 8. Moving or speaking so slowly that other people could have noticed. Or the opposite - being so fidgety or restless that you have been moving around a lot more than usual: not at all 9. Thoughts that you would be better off or of hurting yourself in some way: not at all Total score: 7 Source: Developed by Drs. Juarez Lal, Keyana Llamas, Ranjit Garg and colleagues, with an educational lizeth from [employer]. Thrive Questionnaire Date Thrive assessed: 06/29/24 I am a: Patient What is your living situation today?: I have a steady place to live Within the past 12 months, did the food you bought not last and you didn't have the money to get more?: Never true Within the past 12 months, did you worry whether your food would run out before you got money to buy more?: Never true Do you have trouble paying for medicines?: No Do you have trouble getting transportation to medical appointments?: No Do you have trouble paying your heating and electricity bill?: No Do you have trouble taking care of your child, family member or friend?: No Do you have trouble with day-to-day activities such as bathing, preparing meals, shopping, managing finances, etc.?: No Are you currently unemployed and looking for a job?: No Are you interested in more education?: No Please select the resources that you would like help with: None Currently or been in a relationship where the following occur: No concerns re ported THRIVE Score: 0 AUDIT C Alcohol Use Questionnaire (AUDIT-C) 1. How often do you have a drink containing alcohol?: Monthly or less 2. How many drinks containing alcohol do you have on a typical day when you are drinking?: 1 or 2 3. How often do you have six or more drinks on one occasion?: Never Total Score: 1 ASIM-7 AMB Questionnaire ASIM-7 Date ASIM - 7 assessed: 06/29/24 Feeling nervous, anxious, or on edge: 1 = Several days Not being able to stop or control worryin = Not at all Worrying too much about different things: 0 = Not at all Trouble relaxin = Not at all Being so restless that it is hard to sit still: 0 = Not at all Becoming easily annoyed or irritable: 0 = Not at all Feeling afraid as if something awful might happen: 0 = Not at all Total ASIM-7 score (0-4 normal; 5-9 mild; 10-14 moderate; 15-21 severe): 1 Source: Developed by Drs. Juarez Lal, Ranjit Elizabeth and colleagues, with an educational lizeth from [employer]. Physical exam (Primary Care) Vital Signs: Last Vital Signs Temp 98.4 F 08/31/24 09:47 Pulse 104 H 08/31/24 09:47 Resp 14 08/31/24 09:47 BP 136/74 08/31/24 09:47 Pulse Ox 94 08/31/24 09:47 Oxygen Delivery Method Room Air 08/31/24 09:47 BMI result Body Mass Index 26.3 Tobacco/Smoking Status: Tobacco use Status Tobacco use date assessed 06/29/24 08/31/24 09:50 Patient Tobacco Use Status Former Tobacco user 08/31/24 09:50 Tobacco use type Cigarette 08/31/24 09:50 e-Cigarette/Vaping Use Never Used 08/31/24 09:50 PHQ-9: PHQ-9 Score PHQ-9: Total score 7 08/31/24 09:53 Thrive Assessment: Date of Thrive Assessment Date Thrive assessed 06/29/24 08/31/24 09:50 Currently or been in a relationship where the following occur: No concerns reported Coding Level of Care Code Est Pt Level 5 (13472) Diagnoses Viral upper respiratory illness J06.9 Congestive heart failure, NYHA class 1, unspecified congestive heart failure type I50.9 Congestive heart failure type: unspecified Time Spent (min) 45 Assessment & Plan Assessment & Plan (1) Viral upper respiratory illness: Code(s): J06.9 - Acute upper respiratory infection, unspecified Category: Medical Plan: She is feeling better today than she has for the past week. Azithromycin and prednisone sent-she will start this if she does not continue to see improvement (2) CHF (congestive heart failure), NYHA class I: Code(s): I50.9 - Heart failure, unspecified Category: Medical Qualifiers: Congestive heart failure type: unspecified Qualified Code(s): I50.9 - Heart failure, unspecified Plan: Mild hypervolemia. She is waiting for hctz from mail order. 7 days sent to local pharmacy. Told her to start today and monitor weights Medications: New prednisone 20 mg PO DAILY 5 days 5 tabs 0RF azithromycin For 250 mg dose pack: take 500 mg today (day 1), then 250 mg for 4 days (days 2-5) PO 6 tabs 0RF azithromycin For 250 mg dose pack: take 500 mg today (day 1), then 250 mg for 4 days (days 2-5) PO 6 tabs 0RF prednisone 20 mg PO DAILY 5 tabs 0RF 5 days azithromycin For 250 mg dose pack: take 500 mg today (day 1), then 250 mg for 4 days (days 2-5) PO 6 tabs 0RF Changed From hydrochlorothiazide 12.5 mg PO DAILY To hydrochlorothiazide 12.5 mg PO DAILY 7 tabs 0RF 7 days
[2024-08-31 09:47] VITALS: BP 136/74; PULSE 104; RESP 14; TEMP 36.9; O2SAT 94; BMI 26.3
== END 2024-08-31 12:57 | disposition home or self-care (01) ==
PROVIDERS: PCP Internal Medicine; Visit Provider Internal Medicine
DX: J06.9 Acute upper respiratory infection, unspecified (principal); I50.9 Heart failure, unspecified

== ENCOUNTER → 2024-08-31 09:22 | Outpatient (BNVA) | payer MEDICARE, OTHER, SELFPAY | PROVIDERS: PCP Internal Medicine; Visit Provider Internal Medicine | DX: J06.9 Acute upper respiratory infection, unspecified (principal); I50.9 Heart failure, unspecified; R06.02 Shortness of breath; Z87.891 Personal history of nicotine dependence | CPT/HCPCS: 99212 ==

== ENCOUNTER → 2024-09-14 08:59 | Outpatient (REF) | payer OTHER, SELFPAY ==
--- NOTE | 2024-09-14 09:04 | CA_ITS ---
Transthoracic Echocardiogram Patient (Last, First, Middle): Pastora Combs M Gender: Female Date of : 1935 Age: 89 Procedure Date: 09/14/2024 Procedure Type: Transthoracic Echocardiogram Location: OP Height: 167. cm Weight: 72.58 kg BSA: 1.81 m2 Heart Rate: 65 bpm BP: 132 / 60 mmHg Charge Entry Clerk: CYNTHIA Referring MD: Luis Hunt MD Symptoms: I50.9 - Heart failure, unspecified Study Quality: Fair ECG Rhythm: Atrial Fibrillation Conclusions: - The left ventricular systolic function is normal. The visually estimated ejection fraction is between 55-60%. - Moderate biatrial enlargement. - No obvious valvular pathology seen on this study. Findings Left Ventricle Normal left ventricular cavity size. There is moderately increased left ventricular wall thickness. The left ventricular systolic function is normal. The visually estimated ejection fraction is between 55-60%. There is no evidence of regional wall motion abnormalities. Diastolic function is indeterminate on the basis of available data. Right Ventricle Normal right ventricular cavity size and systolic function. Atria Moderate biatrial enlargement. Aortic Valve There is a normal trileaflet aortic valve. There is mild calcification of the aortic valve. There is no aortic valve stenosis. There is no aortic valve regurgitation. Mitral Valve There is mild anterior mitral leaflet thickening. There is mild mitral annular calcification. There is trace mitral valve regurgitation. There is no mitral valve stenosis. Pulmonic Valve The pulmonic valve is likely normal. Tricuspid Valve Normal tricuspid valve structure. There is mild tricuspid valve regurgitation. Mild pulmonary hypertension is present. Great Vessels The asc aorta is normal in size. Venous The inferior vena cava is mildly dilated and collapses greater than 50% with inspiration. Pericardium/Pleural There is a small loculated pericardial effusion overlying the left ventricle. Prior Study Comparison No significant change compared to prior study dated: 06/24/2022. Recommendations, Care & Conclusions No obvious valvular pathology seen on this study. Measurements 2D Linear Measurements IVSd: 1.29 0.6-0.9/0.6-1.0 cm LVIDd: 4.29 3.9-5.3/4.2-5.9 cm LVIDd Index: 2.37 2.4-3.2/2.2-3.1 cm/m2 LVIDs: 2.40 2.0-3.6 cm LVPWd: 1.26 0.7-1.1 cm LA Diam: 4.60 2.7-3.8/3.0-4.0 cm LAIDs Index: 2.54 1.5-2.3 cm/m2 LV Mass: 250.70 67-162/88-224 g LV Mass Index: 138.51 43-95/49-115 g/m2 LVOT Diam: 2.10 3.0+(-)1.3 cm 2D Systolic Function EF 4C: 52.20 >55% EF 2C: 65.90 >55% EF BiP: 58.90 >55% Mitral Valve MV Pk E: 1.20 MV PK A: 0.42 MV Decel Time: 171.00 E/A: 2.90 E'Lateral: 5.90 E'Medial: 4.99 E/E' Med: 24.00 E/E' Lat: 20.30 PHT: 50.00 MVA PHT: 4.40 Decel [place]ada: 7.00 Aortic Valve AoV Pk Lele: 1.09 AoV Mn Lele: 0.75 AoV VTI: 0.25 AoV Pk Grad: 5.00 Aov Mn Grad: 3.00 SILVANA Cont.VTI: 2.56 LVOT LVOT Pk Lele: 0.82 LVOT Mn Lele: 0.55 LVOT VTI: 0.18 LVOT Pk Grad: 3.00 LVOT Mn Grad: 1.00 LVOT Diam: 2.10 LVOT Area: 3.46 Diastolic Function MV Pk E: 1.20 MV Pk A: 0.42 E/A: 2.90 E'Medial: 4.99 E/E' Med: 24.00 E' Laterial: 5.90 E/E' Lat: 20.30 Right Ventricle TAPSE (mm): 20.30 TVS' Lele: 8.18 Tricuspid Valve TR Pk Lele: 2.86 TR Pk Grad: 33.00 RA Press: 8.00 RVSP: 41.00 Great Vessels Aorta Sinus of Valsalva: 3.30 2.0-3.5 cm Ao Asc: 2.90 2.1-3.4 cm Pulmonary Valve PV Pk Lele: 0.82 Peak PV Grad: 3.00 Updated in Other Vendor System with Status of Final Armin Woodall MD electronically signed on 09/16/2024 1:00:55 PM with status of Final
== END ==
LOC: HO.CARD 08:59
PROVIDERS: Visit Provider Internal Medicine Cardiovascular Disease
DX: I50.9 Heart failure, unspecified (principal)
CPT/HCPCS: 93306

== ENCOUNTER → 2024-09-14 09:04 | Outpatient (BNV) | payer OTHER, SELFPAY | PROVIDERS: Visit Provider Internal Medicine | DX: I36.1 Nonrheumatic tricuspid (valve) insufficiency (principal); I51.7 Cardiomegaly; I35.8 Other nonrheumatic aortic valve disorders; I34.81 Nonrheumatic mitral (valve) annulus calcification | CPT/HCPCS: 93306 ==

== ENCOUNTER 2024-10-22 09:38 | Outpatient (AMB) | payer MEDICARE, OTHER, SELFPAY ==
--- NOTE | 2024-10-22 10:22 | MHC.OFFVIS ---
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 She has been doing well from cardiac perspective. She has had no worsening symptoms of heart failure. Says getting more fatigued and tired otherwise overall doing well. No prolonged palpitation irregular heartbeat. No clear orthopnea, PND, leg edema. Taking all her medications. Recent echocardiogram shows preserved LV ejection fraction with moderate biatrial enlargement. PENDING SALE TO [facility] Medical History Hematuria Depression, major, in remission Depression, major, recurrent Lumbar disc disease with radiculopathy Diastolic CHF Lumbar radiculopathy Left bundle branch block HTN (hypertension) Skin lesion of neck Legionnaires' disease Menopause Acquired deformity of toenail Chronic anticoagulation Anxiety disorder Degenerative disc disease, lumbar Insomnia Acquired hypothyroidism Atrial fibrillation Surgical History Previous back surgery Family History Brother Leukemia Social History Household Members: None Housing: Apartment Housing Other:: independent gemini Hearing needs ing Do you presently have visiting nurse or other home services: No 75 years or older and lives alone: No Alcohol intake: current Alcohol intake frequency: does not drink Patient Tobacco Use Status: Former Tobacco user Tobacco use type: Cigarette Cigarettes Per Day: 10 e-Cigarette/Vaping Use: Never Used Second Hand Smoke Exposure: No Advance Directives Date on File: 12/10/21 service: No Current occupational status: retired Cognitive needs: No Hearing needs: No Vision needs: Yes Review of Systems Const Denies chills, Denies fatigue, Denies fever(s), Denies frequent falls, Denies weakness, Denies weight gain and Denies weight loss ENT Denies dizziness Card Denies chest pain, Denies leg edema, Denies lightheadedness, Denies palpitations, Denies dyspnea, Denies dyspnea on exertion, Denies orthopnea and Denies other (loss of consciousness) Resp Denies cough, Denies dyspnea and Denies dyspnea on exertion GI Denies hematochezia and Denies change in stool character Musc Denies abnormal gait, Denies muscle weakness, Denies numbness, Denies radiating pain into limb and Denies tingling Neuro Denies abnormal gait, Denies dizziness, Denies frequent falls, Denies numbness, Denies tingling and Denies weakness Endo Denies fatigue and Denies palpitations Physical Exam Vital Signs: Last Vital Signs Pulse 82 10/22/24 10:23 BP 128/80 10/22/24 10:23 BMI result Body Mass Index 26.3 Const General: cooperative, comfortable, no acute distress, alert, awake and well groomed Nutritional Appearance: average body habitus Orientation/consciousness: patient oriented x3 Limitations: no limitations Neck Neck: Yes trachea midline, Yes supple and Yes no JVD Resp Effort & Inspection: normal respiratory effort Auscultation: clear to auscultation bilaterally and diminished lung sounds Cardio Jugular venous distension: no JVD Palpation: normal PMI Rate: regular rate Rhythm: abnormal rhythm irregularly irregular Heart sounds: S1 normal heart sound present, S2 normal heart sound present, no click, no gallops, no murmurs and no rubs GI Auscultation: normal bowel sounds Neuro General: patient oriented x3 and no focal motor deficits Extrem General: No clubbing, No cyanosis, Yes pedal edema and Yes other (Bilateral my varicosities) Office Procedures EKG Details: EKG shows atrial fibrillation with left axis deviation with IV CD, left bundle-branch block is not apparent [id number], Complete Assessment & Plan Assessment & Plan (1) Atrial fibrillation: Code(s): I48.91 - Unspecified atrial fibrillation Category: Medical Qualifiers: Atrial fibrillation type: longstanding persistent Qualified Code(s): I48.11 - Longstanding persistent atrial fibrillation Plan: Chronic rate control atrial fibrillation dual therapy with Cardizem as metoprolol. Rate remains controlled. No worsening symptoms. Has failed rhythm control approach. Tolerating well and doing well. Continue current rate control strategy. Continue full oral anticoagulation, currently on Eliquis 5 mg b.i.d.. There is no indication for Watchman device unless she has significant bleeding risk that is unexplained. Continue aggressive blood pressure control. Quarterly renal function test should be pursued. (2) CHF (congestive heart failure), NYHA class I: Code(s): I50.9 - Heart failure, unspecified Category: Medical Qualifiers: Congestive heart failure type: unspecified Qualified Code(s): I50.9 - Heart failure, unspecified Plan: Heart failure in the past. No signs or symptoms of heart failure at current point time. Continue current hydrochlorothiazide therapy. Continue aggressive blood pressure control. Continue current rate control approach. Signs and symptoms of heart failure were discussed encouraged to increase activity level as tolerated. No other pharmacotherapy is recommended. Will follow up in the clinic in 1 year's time, sooner p.r.n.. Thank you for allowing me to partake in his care Coding Level of Care Code Est Pt Level 4 ([id number]) Complex EM visit Add On G2211 Diagnoses Atrial fibrillation, unspecified type I48.11 Atrial fibrillation type: longstanding persistent Congestive heart failure, NYHA class 1, unspecified congestive heart failure type I50.9 Congestive heart failure type: unspecified CPT Codes EKG - CPT: 63210-[id number], Complete ([id number])
[2024-10-22 10:23] VITALS: BP 128/80; PULSE 82; BMI 26.3
== END 2024-10-22 10:58 | disposition home or self-care (01) ==
PROVIDERS: PCP Registered Nurse; Visit Provider Internal Medicine Cardiovascular Disease
DX: I48.11 Longstanding persistent atrial fibrillation (principal); I50.9 Heart failure, unspecified
CPT/HCPCS: 93010; 99214; G2211

== ENCOUNTER → 2024-10-22 09:38 | Outpatient (BNVA) | payer MEDICARE, OTHER, SELFPAY | PROVIDERS: PCP Registered Nurse; Visit Provider Internal Medicine Cardiovascular Disease | DX: I48.11 Longstanding persistent atrial fibrillation (principal); I50.9 Heart failure, unspecified | CPT/HCPCS: 93005; 99212 ==

== ENCOUNTER 2025-01-04 11:35 | Outpatient (REF) | payer MEDICARE, SELFPAY ==
[2025-01-04 14:21] LABS: MANUAL DIFF FLAG NO
[2025-01-04 14:23] LABS: Basophils Percent Auto 0.5 % (0-2); Hematocrit 39.9 % (37.0-47.0); Hemoglobin 12.9 g/dl (12.0-16.0); Imm Gran Abs Auto 0.03 X10*3/uL (0.00-0.03); Imm Gran Pct Auto 0.5 % (0.0-0.4); Lymphocytes Absolute Auto 1.2 X10*3/uL (1.2-4.9); Lymphocytes Percent Auto 18.9 % (20-40); Mean Corpuscular HGB Conc 32.3 g/dl (31.0-35.0); Mean Corpuscular Hemoglobin 29.2 pg (27.0-33.0); Mean Corpuscular Volume 90.3 fL (80.0-98.0); Mean Platelet Volume 10.7 fL (9.4-12.3); Monocytes Absolute Auto 0.5 X10*3/uL (0.1-1.2); Monocytes Percent Auto 8.3 % (2-11); Neutrophils Absolute Auto 4.7 x10*3/uL (2.0-8.3); Neutrophils Percent Auto 71.8 % (45-73); Platelet Count 172 X10*3/uL (160-400); Red Blood Count 4.42 X10*6/uL (4.20-5.50); Red Cell Distribution Width 13.4 % (11.0-16.0); White Blood Count 6.5 X10*3/uL (4.8-10.8)
[2025-01-04 14:59] LABS: Alanine Aminotransferase 14 U/L (0-31); Albumin Level 4.5 g/dL (3.5-5.0); Alkaline Phosphatase 92 U/L (39-117); Anion Gap 17 (12-20); Aspartate Amino Transferase 29 U/L (5-31); Bilirubin Total 0.9 mg/dL (0.0-1.0); Blood Urea Nitrogen 26 mg/dL (9-16); Calcium 10.3 mg/dL (8.4-10.2); Carbon Dioxide 30 mmol/L (22-29); Chloride 102 mmol/L (96-108); Cholesterol 211 mg/dL (<200); Estimated Glomerular Filt Rate > 60; Glucose Random 97 mg/dL (60-115); HDL Cholesterol 51 mg/dL (>40); LDL Cholesterol Calculated 129 mg/dL (<100); Potassium 3.9 mmol/L (3.3-5.1); Sodium 145 mmol/L (135-145); Total Protein 7.7 g/dL (6.5-8.0); Triglycerides 158 mg/dL (<150)
[2025-01-04 15:18] LABS: TSH reflex Free T4 0.46 uIU/mL (0.32-4.0)
== END 2025-01-04 11:36 | disposition home or self-care (01) ==
LOC: HO.WFDLDS 11:35
PROVIDERS: Visit Provider Internal Medicine
DX: Z00.00 Encounter for general adult medical examination without abnormal findings (principal); F32.5 Major depressive disorder, single episode, in full remission; I48.11 Longstanding persistent atrial fibrillation; I50.9 Heart failure, unspecified; E03.9 Hypothyroidism, unspecified; Z79.01 Long term (current) use of anticoagulants; Z79.899 Other long term (current) drug therapy; Z13.0 Encounter for screening for diseases of the blood and blood-forming organs and certain disorders involving the immune mechanism; Z13.228 Encounter for screening for other metabolic disorders
CPT/HCPCS: 36415; 80053; 80061; 84443; 85025; 99212